=== PATIENT | male | born 1950 | race Caucasian/White ===

== ENCOUNTER 2017-10-01 01:38 | Emergency (ER) | payer BC, SELFPAY ==
[2017-10-01 01:39] VITALS: BP 167/115; PULSE 127; RESP 20; TEMP 37.1; O2SAT 98; BMI 34.4
[2017-10-01 02:18] LABS: Basophils # 0.1 K/mm3 (0-0.2); Basophils % 0.8 % (0.1-2.0); Eosinophils # 0.5 K/mm3 (0.0-0.4); Eosinophils % 5.5 % (0.1-12.0); Hematocrit 43.7 % (42.0-52.0); Hemoglobin 14.3 g/dL (14.1-18.0); Lymphocytes # 3.2 K/mm3 (0.7-4.5); Lymphocytes % 33.2 K/mm3 (10-50); Mean Corpuscular HGB Conc 32.8 g/dL (31.8-35.4); Mean Corpuscular Hemoglobin 29.9 pg (27.0-31.2); Mean Corpuscular Volume 91.1 fl (80-94); Mean Platelet Volume 7.7 fl (7.4-10.4); Monocytes # 0.6 K/mm3 (0.1-1.0); Monocytes % 5.8 % (1.7-9.3); Neutrophils # 5.3 K/mm3 (1.8-7.8); Neutrophils % 54.8 % (37.0-80.0); Platelet Count 370 K/mm3 (142-424); Red Cell Distribution Width 12.9 % (11.5-17.5); White Blood Count 9.6 K/mm3 (4.8-10.8)
[2017-10-01 02:34] LABS: Alanine Aminotransferase 40 U/L (12-78); Albumin Level 3.8 gm/dL (3.4-5.0); Albumin/Globulin Ratio 1.1 (1.1-1.8); Alkaline Phosphatase 59 U/L (46-116); Anion Gap 11.5 mEq/L (5-15); Aspartate Amino Transferase 11 U/L (15-37); Bilirubin,Total 0.1 mg/dL (0.2-1.0); Blood Urea Nitrogen 17 mg/dL (7-18); Calcium 8.4 mg/dL (8.5-10.1); Carbon Dioxide 25 mmol/L (21.0-32.0); Chloride 104 mmol/L (98-107); Creatinine Clearance Estimated 99 mL/min (0-300); Creatinine,Serum 1.15 mg/dL (0.70-1.30); Estimated Glomerular Filt Rate 64 ml/min (>60); GFR (African American) 77 ML/MIN (>60); Globulin 3.6 gm/dl (1.3-3.2); Glucose 147 mg/dL (74-106); Potassium 3.5 mmoL/L (3.5-5.1); Sodium 137 mmol/L (136-145); Total Protein,Serum 7.4 gm/dL (6.4-8.2)
[2017-10-01 02:38] VITALS: BP 136/70; PULSE 92; RESP 16; O2SAT 100
--- NOTE | 2017-10-01 02:50 | HMH.EDEPIS ---
ED Disposition Clinical Impression: Epistaxis Disposition: Home, Self-Care Condition on Discharge: Good Instructions: DI for Nosebleed Additional Instructions: keep appt today - Critical Care Critical Care Time: No Attestation: On 10/01/17, the high probability of a clinically significant, sudden or life threatening deterioration of the following system(s) required my full and direct attention, intervention and personal management. The time I documented below is in addition to time spent performing reported procedures but includes the following listed in this critical care notation. Medical Decision Making - Medical Records Medical records reviewed: Yes: I reviewed the patient's medical records. Vital Signs: 10/01/17 01:39 10/01/17 02:38 Temperature 98.7 F Temperature Source Oral Pulse Rate [Right Radial] 127 H 92 H Respiratory Rate 20 16 Blood Pressure [Right Arm] 167/115 136/70 Blood Pressure Mean [Right Arm] 132 92 Blood Pressure Source [Right Arm] Automatic Cuff Blood Pressure Position [Right Arm] Sitting 02 Sat by Pulse Oximetry 98 100 Oxygen Delivery Method Room Air - Lab Data Lab results reviewed: Yes: I reviewed the patient's lab results. Lab Results 10/01/17 02:00: WBC 9.6, RBC 4.80, Hgb 14.3, Hct 43.7, MCV 91.1, MCH 29.9, MCHC 32.8, RDW 12.9, Plt Count 370, MPV 7.7, Neut % (Auto) 54.8, Lymph % (Auto) 33.2, Montgomery % (Auto) 5.8, Eos % (Auto) 5.5, Baso % (Auto) 0.8, Neut # (Auto) 5.3, Lymph # (Auto) 3.2, Montgomery # (Auto) 0.6, Eos # (Auto) 0.5 H, Baso # (Auto) 0.1 10/01/17 02:00: Sodium 137, Potassium 3.5, Chloride 104, Carbon Dioxide 25, Anion Gap 11.5, BUN 17, Creatinine 1.15, Estimated Creat Clear 99, Estimated GFR 64, Est GFR ( Amer) 77, Glucose 147 H, Calcium 8.4 L, Total Bilirubin 0.1 L, AST 11 L, ALT 40, Alkaline Phosphatase 59, Total Protein 7.4, Albumin 3.8, Globulin 3.6 H, Albumin/Globulin Ratio 1.1 Result diagrams: 10/01/17 02:00 10/01/17 02:00 Orders (Tests/Meds): ED MEDICATIONS Discontinued Medications Generic Name Dose Route Start Last Admin Trade Name Ismael ARAGON Reason Stop Dose Admin Cocaine HCl 8 ml 10/01/17 02:13 10/01/17 02:34 Cocaine 4% Topical Soln 4ml Bottle TP 10/01/17 02:14 8 ml ONCE ONE Administration Meperidine HCl 25 mg 10/01/17 02:13 10/01/17 02:34 Meperidine 25mg/Ml 1ml Syringe IV 10/01/17 02:14 25 mg ONCE ONE Administration Promethazine HCl 12.5 mg 10/01/17 02:13 10/01/17 02:34 Phenergan 25mg/Ml 1ml Vial IV 10/01/17 02:14 12.5 mg ONCE ONE Administration Sodium Chloride 25 ml 10/01/17 02:13 10/01/17 02:34 Sod Chlor 0.9% 25ml Bag IV 10/01/17 02:14 25 ml ONCE ONE Administration - Onel Inquiry Pt receiving controlled substance: No Epistaxis HPI - General Chief complaint: Epistaxis Stated complaint: NOSEBLEED Time Seen by Provider: 10/01/17 02:50 Mode of Arrival: Ambulatory Source of Information: Patient, Spouse, Medical Record Limitations: No Limitations Description of Symptoms (Recalled from ER Triage Doc. by RN): PT WITH NOSEBLEED. PT STATES HE STARTED BLEEDING ON WENS AND IT LASTED APPROX 1.5 HOURS. PT HAS NOT HAD ANY BLEEDING UNTIL NOW. BLEEDING STARTED APPROX 30 MIN AGO. PT HAS AND APPOINTMENT WITH EAR/NOSE/THROAT TODAY AT 1400. - History of Present Illness HPI Narrative: rt sided spont nosebleed - has appt today with nosebleed treated at [facility] last week complaint: epistaxis Location: right nostril Onset (ago): hour(s) Duration: constant Context: history of previous, aspirin use Treatment prior to arrival: nose pinching, head tilted back, stuffed nose with tissue - Related Data Home Medications Medication Instructions Recorded Confirmed Amlodipine Besylate/Benazepril 7.5 mg PO DAILY 10/01/17 10/01/17 [Amlodipine-Benazepril 5-20 mg] Aspirin [Aspir 81] 81 mg PO DAILY 10/01/17 10/01/17 Atorvastatin Calcium [Atorvastatin 20 mg PO DAILY 10/01/17 10/01/17
--- NOTE | 2017-10-01 02:53 | ED_ITS ---
ED Disposition Clinical Impression: Epistaxis Disposition: Home, Self-Care Condition on Discharge: Good Instructions: DI for Nosebleed Additional Instructions: keep appt today - Critical Care Critical Care Time: No Attestation: On 10/01/17, the high probability of a clinically significant, sudden or life threatening deterioration of the following system(s) required my full and direct attention, intervention and personal management. The time I documented below is in addition to time spent performing reported procedures but includes the following listed in this critical care notation. Medical Decision Making - Medical Records Medical records reviewed: Yes: I reviewed the patient's medical records. Vital Signs: 10/01/17 01:39 10/01/17 02:38 Temperature 98.7 F Temperature Source Oral Pulse Rate [Right Radial] 127 H 92 H Respiratory Rate 20 16 Blood Pressure [Right Arm] 167/115 136/70 Blood Pressure Mean [Right Arm] 132 92 Blood Pressure Source [Right Arm] Automatic Cuff Blood Pressure Position [Right Arm] Sitting 02 Sat by Pulse Oximetry 98 100 Oxygen Delivery Method Room Air - Lab Data Lab results reviewed: Yes: I reviewed the patient's lab results. Lab Results 10/01/17 02:00: WBC 9.6, RBC 4.80, Hgb 14.3, Hct 43.7, MCV 91.1, MCH 29.9, MCHC 32.8, RDW 12.9, Plt Count 370, MPV 7.7, Neut % (Auto) 54.8, Lymph % (Auto) 33.2 , Ogle % (Auto) 5.8, Eos % (Auto) 5.5, Baso % (Auto) 0.8, Neut # (Auto) 5.3, Lymph # (Auto) 3.2, Ogle # (Auto) 0.6, Eos # (Auto) 0.5 H, Baso # (Auto) 0.1 10/01/17 02:00: Sodium 137, Potassium 3.5, Chloride 104, Carbon Dioxide 25, Anion Gap 11.5, BUN 17, Creatinine 1.15, Estimated Creat Clear 99, Estimated GFR 64, Est GFR ( Amer) 77, Glucose 147 H, Calcium 8.4 L, Total Bilirubin 0.1 L, AST 11 L, ALT 40, Alkaline Phosphatase 59, Total Protein 7.4, Albumin 3.8, Globulin 3.6 H, Albumin/Globulin Ratio 1.1 Result diagrams: 10/01/17 02:00 10/01/17 02:00 Orders (Tests/Meds): ED MEDICATIONS Discontinued Medications Generic Name Dose Route Start Last Admin Trade Name Ismael PRDeacon Reason Stop Dose Admin Cocaine HCl 8 ml 10/01/17 02:13 10/01/17 02:34 Cocaine 4% Topical Soln 4ml Bottle TP 10/01/17 02:14 8 ml ONCE ONE Administration Meperidine HCl 25 mg 10/01/17 02:13 10/01/17 02:34 Meperidine 25mg/Ml 1ml Syringe IV 10/01/17 02:14 25 mg ONCE ONE Administration Promethazine HCl 12.5 mg 10/01/17 02:13 10/01/17 02:34 Phenergan 25mg/Ml 1ml Vial IV 10/01/17 02:14 12.5 mg ONCE ONE Administration Sodium Chloride 25 ml 10/01/17 02:13 10/01/17 02:34 Sod Chlor 0.9% 25ml Bag IV 10/01/17 02:14 25 ml ONCE ONE Administration - Onel Inquiry Pt receiving controlled substance: No Epistaxis HPI - General Chief complaint: Epistaxis Stated complaint: NOSEBLEED Time Seen by Provider: 10/01/17 02:50 Mode of Arrival: Ambulatory Source of Information: Patient, Spouse, Medical Record Limitations: No Limitations Description of Symptoms (Recalled from ER Triage Doc. by RN): PT WITH NOSEBLEED. PT STATES HE STARTED BLEEDING ON WENS AND IT LASTED APPROX 1.5 HOURS. PT HAS NOT HAD ANY BLEEDING UNTIL NOW. BLEEDING STARTED APPROX 30 MIN AGO. PT HAS AND APPOINTMENT WITH EAR/NOSE/THROAT TODAY AT 1400. - History of Present Illness
[2017-10-01 02:59] VITALS: BP 128/79; PULSE 99; RESP 16; TEMP 37.1; O2SAT 97
== END 2017-10-01 03:01 | disposition home or self-care (01) ==
PROVIDERS: Emergency Provider Emergency Medicine; Family Provider Family Medicine
DX: R04.0 Epistaxis (principal); E11.65 Type 2 diabetes mellitus with hyperglycemia; Z79.82 Long term (current) use of aspirin; Z87.891 Personal history of nicotine dependence; I10 Essential (primary) hypertension
CPT/HCPCS: 80053; 85025; 96365; 96374; 96375; 99283

== ENCOUNTER 2017-10-10 15:15 | Emergency (ER) | payer BC, SELFPAY ==
[2017-10-10 15:28] VITALS: BP 146/88; PULSE 91; RESP 20; TEMP 36.8; O2SAT 97; BMI 34.4
--- NOTE | 2017-10-10 15:53 | HMH.EDUTC ---
[facility] [place]ression: Acute bronchitis Qualifiers: Bronchitis organism: other organism Qualified Code(s): J20.8 - Acute bronchitis due to other specified organisms Disposition: Home, Self-Care Condition on Discharge: Good Instructions: DI for Acute Bronchitis Additional Instructions: * Continue current antibiotic. * Monitor Temp. Follow up if fever develops * humidifier/vaporizer/hot steamy shower * Inhaler every 4-6 hours as needed like we discussed. If unsure how to use it, ask pharmacist to demonstrate how. Should help open airways and improve cough, wheezing, shortness of breath. * Mucinex during the day for your cough and cough suppressant only at night. Be sure to drink lots of water. Insurance may not cover a prescription of mucinex. Might be cheaper to get 400mg tablets and take 2 tablets morning, midday and evening all with lots of water. * Start steroid today. Helps with inflammation therefore, cough and wheezing. Follow directions on package. Rvwd side effects. Pt reports they have taken them before. Prescriptions: Albuterol Sulfate [Albuterol HFA Inhaler] 1 - 2 puffs IH Q4-6H PRN #1 inh PRN Reason: Shortness Of Breath Or Wheezing predniSONE [Deltasone 10mg tablet] 10 mg PO BID #10 tab Referrals: Karmen Mehta MD [Family Provider] - (Immediately for new or worsening symptoms but also if not improvement over the weekend. 911/ER for ANY difficulty breathing.) Time of Disposition: 17:41 Medical Decision Making - Onel Inquiry Pt receiving controlled substance: No Vital Signs: 10/10/17 15:28 10/10/17 17:38 Temperature 98.3 F 98.5 F Temperature Source Temporal Artery Scan Pulse Rate 86 Pulse Rate [Right Radial] 91 H Respiratory Rate 20 18 Blood Pressure 139/85 Blood Pressure [Right Arm] 146/88 Blood Pressure Mean [Right Arm] 107 02 Sat by Pulse Oximetry 97 Oxygen Delivery Method Room Air Room Air - Radiology Data #1 Image(s): Chest Image Reviewed: Yes I reviewed the patient's radiology image w/the ED provider Preliminary Findings: Normal/NAD 1654: Walked to ER to discuss with Dr. Russell. Not available. Will call once read. 1730: negative pr Dr. russell. Rvwd w/ [place] [facility] [place] - General Stated complaint: nose bleeds Time Seen by Provider: 10/10/17 15:53 Mode of Arrival: Family Vehicle Source of Information: Patient Limitations: No Limitations Description of Symptoms (Recalled from Triage Doc. by RN): PT C/O COUGH. HEENT Symptoms (Recalled from RN notes): No Resp Symptoms (Recalled from RN notes): Yes (COUGH) Skin Symptoms (Recalled from RN notes): No MS Symptoms (Recalled from RN notes): No Functional Status (Recalled from RN notes): NA - History of Present Illness Provider Complaint: c/o occasionally productive cough. scant dark sputum. Worries associated w/ recent nosebleeds that have required two ER visits over the last 2 weeks and an ENT referral. Since seeing ENT one week ago, no nose bleeds. Reports at times, was swallowing blood and worries he aspirated. Cough after first nose bleed 2 weeks ago that resolved within one day. Cough returned last Friday (nearly a week ago). Went to [facility] in [place] on Friday. Dx bronchitis. Rx doxycycline. Sputum looks better and cough more dry now. Worse at night. Describes feeling loss of air at times throughout the night and a tickle in my throat . No known sick contacts. No fever, aches, chills, wheezing. Quit smoking 5 years ago. - Related Data Home Medications Medication Instructions Recorded Confirmed Amlodipine Besylate/Benazepril 7.5 mg PO DAILY 10/01/17 10/10/17 [Amlodipine-Benazepril 5-20 mg] Aspirin [Aspir 81] 81 mg PO DAILY 10/01/17 10/10/17 Atorvastatin Calcium [Atorvastatin 20 mg PO DAILY 10/01/17 10/10/17 20mg Tab] Doxycycline Hyclate [Vibra-Tab 100 mg PO BID 10/10/17 10/10/17 100mg tablet] Previous Rx's Medication Instructions Recorded Albuterol Sulfate [Al
--- NOTE | 2017-10-10 16:03 | ED_ITS ---
[facility] [place] Impression: Acute bronchitis Qualifiers: Bronchitis organism: other organism Qualified Code(s): J20.8 - Acute bronchitis due to other specified organisms Disposition: Home, Self-Care Condition on Discharge: Good Instructions: DI for Acute Bronchitis Additional Instructions: * Continue current antibiotic. * Monitor Temp. Follow up if fever develops * humidifier/vaporizer/hot steamy shower * Inhaler every 4-6 hours as needed like we discussed. If unsure how to use it, ask pharmacist to demonstrate how. Should help open airways and improve cough, wheezing, shortness of breath. * Mucinex during the day for your cough and cough suppressant only at night. Be sure to drink lots of water. Insurance may not cover a prescription of mucinex. Might be cheaper to get 400mg tablets and take 2 tablets morning, midday and evening all with lots of water. * Start steroid today. Helps with inflammation therefore, cough and wheezing. Follow directions on package. Rvwd side effects. Pt reports they have taken them before. Prescriptions: Albuterol Sulfate [Albuterol HFA Inhaler] 1 - 2 puffs IH Q4-6H PRN #1 inh PRN Reason: Shortness Of Breath Or Wheezing predniSONE [Deltasone 10mg tablet] 10 mg PO BID #10 tab Referrals: Karmen Mehta MD [Family Provider] - (Immediately for new or worsening symptoms but also if not improvement over the weekend. 911/ER for ANY difficulty breathing.) Time of Disposition: 17:41 Medical Decision Making - Onel Inquiry Pt receiving controlled substance: No Vital Signs: 10/10/17 15:28 10/10/17 17:38 Temperature 98.3 F 98.5 F Temperature Source Temporal Artery Scan Pulse Rate 86 Pulse Rate [Right Radial] 91 H Respiratory Rate 20 18 Blood Pressure 139/85 Blood Pressure [Right Arm] 146/88 Blood Pressure Mean [Right Arm] 107 02 Sat by Pulse Oximetry 97 Oxygen Delivery Method Room Air Room Air - Radiology Data #1 Image(s): Chest Image Reviewed: Yes I reviewed the patient's radiology image w/the ED provider Preliminary Findings: Normal/NAD 1654: Walked to ER to discuss with Dr. Russell. Not available. Will call once read. 1730: negative pr Dr. russell. Rvwd w/ pt [facility] [place] - General Stated complaint: nose bleeds Time Seen by Provider: 10/10/17 15:53 Mode of Arrival: Family Vehicle Source of Information: Patient Limitations: No Limitations Description of Symptoms (Recalled from Triage Doc. by RN): PT C/O COUGH. HEENT Symptoms (Recalled from RN notes): No Resp Symptoms (Recalled from RN notes): Yes (COUGH) Skin Symptoms (Recalled from RN notes): No MS Symptoms (Recalled from RN notes): No Functional Status (Recalled from RN notes): NA - History of Present Illness Provider Complaint: c/o occasionally productive cough. scant dark sputum. Worries associated w/ recent nosebleeds that have required two ER visits over the last 2 weeks and an ENT referral. Since seeing ENT one week ago, no nose bleeds. Reports at times, was swallowing blood and worries he aspirated. Cough after first nose bleed 2 weeks ago that resolved within one day. Cough returned last Friday (nearly a week ago). Went to [facility] in [place] on Friday. Dx bronchitis. Rx doxycycline. Sputum looks better and cough more dry now. Worse at night. Describes feeling loss of air at times throughout the night and a tickle in my throat . No known sick contacts. No fever, aches, chills, wheezing. Quit smoking 5 years ago. - Related Data
--- NOTE | 2017-10-10 16:03 | XR_ITS ---
XR chest 2V COMPARISON: PA and lateral chest 07/29/2016 HISTORY: Persistent cough TECHNIQUE: PA and lateral chest FINDINGS: The lung suárez are fairly well-expanded. Again noted is elevation left hemidiaphragm which was noted previously and may be due to paresis of the left phrenic nerve. There is mildly dilated splenic flexure the colon just beneath the elevated left hemidiaphragm. Cardiac size is normal and the vascularity is normal. There are calcified left hilar nodes. IMPRESSION: Chronically elevated left hemidiaphragm, no acute chest pathology noted
[2017-10-10 17:38] VITALS: BP 139/85; PULSE 86; RESP 18; TEMP 36.9; O2SAT 98
== END 2017-10-10 17:45 | disposition home or self-care (01) ==
PROVIDERS: Emergency Provider Nurse Practitioner Family; Family Provider Family Medicine
DX: J20.8 Acute bronchitis due to other specified organisms (principal)
CPT/HCPCS: 71046; 99201

== ENCOUNTER → 2018-02-16 14:45 | Outpatient (CLI) | payer BC, SELFPAY ==
--- NOTE | 2018-02-16 14:48 | CT_ITS ---
CT abdomen pelvis wo con INDICATION: ITS.REASON: HEMATURIA ORDERING PHYSICIAN: Carson Cali MD PATIENT AGE: 67 years COMPARISON: No previous PROCEDURE: Oral Contrast: None IV Contrast: None TECHNIQUE: Axial images are obtained without contrast. Sagittal and coronal reformatted images are reviewed as well. All CT scans at the facility use one or more dose reduction, viz: automated exposure control; ma/kV adjustment per patient size (including targeted exams where dose is matched to indication; i.e. head); or iterative reconstruction technique. FINDINGS: Lung bases clear. Calcified granuloma right base. Generous Elevation left hemidiaphragm was noted on 2017 study . Abdomen/pelvis. Lack of oral and IV contrast will decrease sensitivity. Liver. No focal lesions. Unremarkable.. Gallbladder contracted with no gallstones. No biliary ductal dilatation. Spleen unremarkable. Adrenals satisfactory. Pancreas unremarkable. LEFT KIDNEY.*Large 8 cm diameter x 9 cm height mass left kidney. Inhomogeneous solid with stippled calcifications throughout.. This Renal neoplasm is highly suspect for renal cell carcinoma/hypernephroma, until proven otherwise. . It arises from the posterior aspect left kidney inferior to this midportion. It displaces normal kidney about it. I do not see any discrete retroperitoneal adenopathy on this noncontrast study. No definitive adenopathy medial to the left kidney I would note that just medial medial to the mass there is some densities which I'm attributing to tortuous vessels/venous structures.-Specifically small density 18 x 8 mm area just along the medial aspect of the mass which favors a tortuous vein most likely. . RIGHT KIDNEY appears normal Diffusecalcification of nondilated infrarenal aorta GI tract. Prominent stool at the cecum and right colon moderate stool and gas elsewhere throughout the large bowel. Scattered diverticulosis throughout the left colon and sigmoid colon but no diverticulitis. The appendix is normal. Small bowel appears normal. No mesenteric nor pelvic nor retroperitoneal adenopathy of significance. Osseous structures. No focal osseous lesions evident.. Mild dextroscoliosis upper lumbar region. Degenerative changes throughout spine most notable are the prominent facet hypertrophic changes towards lower L-spine. IMPRESSION ======== 1. Large left renal neoplasm., Highly suspect for Renal cell carcinoma. It measures 8 cm X up to 9 cm, bulging from the posterior aspect left kidney. 2. No discrete retroperitoneal or periaortic adenopathy of significant concern at this point. 3. Right kidney unremarkable. 4. No evidence of metastatic disease on this scan. 5. Colonic diverticulosis. Most notable at left colon. No diverticulitis
== END ==
PROVIDERS: Family Provider Family Medicine; PCP Family Medicine; Visit Provider Urology
DX: R31.9 Hematuria, unspecified (principal)
CPT/HCPCS: 74176

== ENCOUNTER → 2018-02-19 14:09 | Outpatient (CLI) | payer BC, SELFPAY ==
[2018-02-19 14:43] LABS: Basophils # 0.1 K/mm3 (0-0.2); Basophils % 0.7 % (0.1-2.0); Eosinophils # 0.4 K/mm3 (0.0-0.4); Eosinophils % 3.6 % (0.1-12.0); Hemoglobin 14.9 g/dL (14.1-18.0); Lymphocytes # 2.5 K/mm3 (0.7-4.5); Lymphocytes % 25.6 K/mm3 (10-50); Mean Corpuscular HGB Conc 33.2 g/dL (31.8-35.4); Mean Corpuscular Hemoglobin 29.2 pg (27.0-31.2); Mean Platelet Volume 7.5 fl (7.4-10.4); Monocytes # 0.5 K/mm3 (0.1-1.0); Monocytes % 5.2 % (1.7-9.3); Neutrophils # 6.3 K/mm3 (1.8-7.8); Platelet Count 327 K/mm3 (142-424); Red Blood Count 5.11 M/mm3 (4.60-6.20); Red Cell Distribution Width 13.1 % (11.5-17.5); White Blood Count 9.8 K/mm3 (4.8-10.8)
[2018-02-19 15:45] LABS: Alanine Aminotransferase 35 U/L (12-78); Albumin Level 3.9 gm/dL (3.4-5.0); Albumin/Globulin Ratio 1.1 (1.1-1.8); Alkaline Phosphatase 62 U/L (46-116); Anion Gap 12.1 mEq/L (5-15); Aspartate Amino Transferase 10 U/L (15-37); Bilirubin,Total 0.2 mg/dL (0.2-1.0); Blood Urea Nitrogen 20 mg/dL (7-18); Calcium 9.1 mg/dL (8.5-10.1); Carbon Dioxide 27 mmol/L (21.0-32.0); Chloride 106 mmol/L (98-107); Creatinine,Serum 0.99 mg/dL (0.70-1.30); Estimated Glomerular Filt Rate 76 ml/min (>60); GFR (African American) 92 ML/MIN (>60); Globulin 3.4 gm/dl (1.3-3.2); Glucose 100 mg/dL (74-106); Potassium 4.1 mmoL/L (3.5-5.1); Sodium 141 mmol/L (136-145); Total Protein,Serum 7.3 gm/dL (6.4-8.2)
== END ==
PROVIDERS: Visit Provider Urology
DX: D49.512 Neoplasm of unspecified behavior of left kidney (principal)
CPT/HCPCS: 36415; 80053; 85025

== ENCOUNTER → 2018-02-26 08:17 | Outpatient (CLI) | payer BC, SELFPAY ==
--- NOTE | 2018-02-26 08:22 | CT_ITS ---
CT abdomen pelvis wo/w con CLINICAL INDICATION: Left renal mass, hematuria, bilateral left renal vein ITS.REASON: LT RENAL MASS ORDERING PHYSICIAN: Carson Cali MD PATIENT AGE: 67 years COMPARISON: None TECHNIQUE: Axial images obtained with sagittal and coronal reformats. All CT scans at the facility use one or more dose reduction, viz: automated exposure control, ma/kV adjustment per patient size (including targeted exams where dose is matched to indication, i.e. head), or iterative reconstruction technique. PROCEDURE: Oral Contrast: None IV Contrast: 75 mL's of Isovue-370. FINDINGS: Pre and post enhanced images are obtained. Post enhanced images are obtained at 30 seconds, 60 seconds, and 10 delayed. Liver, gallbladder, spleen, adrenal glands, pancreas, and right kidney have an unremarkable appearance. There is a heterogeneous round left renal mass measuring 8.5 cm transverse, 8.5 cm cephalad to caudad, an 8.2 cm AP. The mass is heterogeneous containing some coarse calcifications with some heterogeneous peripheral enhancement consistent with renal cell cancer. The mass involves the mid and lower pole of the left kidney and is probably well-circumscribed. The left renal vein is slightly enlarged but does NOT appear to contain tumor or thrombus. No evidence of extension to the abdominal wall. There is only minimal stranding of the perinephric renal fat on the left which is nonspecific. No para-aortic or retroperitoneal adenopathy. The inferior vena cava has an unremarkable appearance. No intestinal obstruction or free air. Unremarkable appendix. There is diverticulosis of the sigmoid colon with no evidence of diverticulitis. No acute bony anomalies. IMPRESSION: 1. 8.5 cm left renal mass consistent with renal carcinoma as described above. 2. No evidence of thrombosis or tumor invasion of the left renal vein. 3. No evidence of hepatic metastasis
--- NOTE | 2018-02-26 08:22 | CT_ITS ---
CT chest wo con HISTORY: Left renal mass, evaluate for metastasis ITS.REASON: LT RENAL MASS ORDERING PHYSICIAN: Carson Cali MD PATIENT AGE: 67 years COMPARISON: None Technique: Axial images obtained with sagittal and coronal reformats. All CT scans at the facility use one or more dose reduction, viz: automated exposure control, ma/kV adjustment per patient size (including targeted exams where dose is matched to indication, i.e. head), or iterative reconstruction technique. FINDINGS: No mediastinal or hilar mass or adenopathy. Normal heart size. No evidence of pericardial effusion. Scattered calcified nodes are present in the mediastinum and tarun. There are mild centrilobular emphysematous changes. Scattered calcified granulomas are present with scattered areas of fibrosis. No suspicious pulmonary nodules. Left hemidiaphragm elevated nonspecific. No central obstructing lesions.. There is mild bronchial thickening in the left lower lobe. No acute bony anomalies. IMPRESSION: 1. No convincing evidence of metastatic disease within the chest. 2. Emphysema/COPD with evidence of old granulomatous disease. 3. Elevated left hemidiaphragm.
== END ==
PROVIDERS: Family Provider Family Medicine; PCP Family Medicine; Visit Provider Urology
DX: N28.89 Other specified disorders of kidney and ureter (principal)
CPT/HCPCS: 71250; 74170; 74178; Q9967

== ENCOUNTER → 2018-03-31 09:30 | Outpatient (CLI) | payer BC, SELFPAY ==
--- NOTE | 2018-03-31 09:37 | XR_ITS ---
XR chest 2V HISTORY: ITS.REASON: CHEST CONGESTION ORDERING PHYSICIAN: Karmen Mehta MD PATIENT AGE: 67 years COMPARISON: 10/10/2017 FINDINGS: Unremarkable cardiovascular structures. Left hemidiaphragm remains elevated. There is blunting of the CP angles on both sides consistent with small bilateral pleural effusions. No lobar consolidation or collapse. No acute bony anomalies. IMPRESSION: Elevated left hemidiaphragm with small bilateral effusions
== END ==
PROVIDERS: PCP Family Medicine; Visit Provider Family Medicine
DX: R09.89 Other specified symptoms and signs involving the circulatory and respiratory systems (principal)
CPT/HCPCS: 71046

== ENCOUNTER → 2018-10-22 13:13 | Outpatient (CLI) | payer BC, SELFPAY ==
--- NOTE | 2018-10-22 13:22 | XR_ITS ---
XR chest 2V HISTORY: Former smoker, renal cell carcinoma follow-up ITS.REASON: History Renal Cell Carcinoma ORDERING PHYSICIAN: Carson Cali MD PATIENT AGE: 67 years COMPARISON: 03/31/2018 FINDINGS: The cardiomediastinal silhouette and pulmonary vascularity are within normal limits. Left hemidiaphragm is elevated as before posteriorly. The lungs are clear bilaterally. No acute bony findings. IMPRESSION: Elevated left hemidiaphragm. No change with no acute finding.
[2018-10-22 15:07] LABS: Alanine Aminotransferase 35 U/L (12-78); Albumin Level 3.9 gm/dL (3.4-5.0); Albumin/Globulin Ratio 1.1 (1.1-1.8); Alkaline Phosphatase 57 U/L (46-116); Anion Gap 16.3 mEq/L (5-15); Aspartate Amino Transferase 19 U/L (15-37); Bilirubin,Total 0.3 mg/dL (0.2-1.0); Blood Urea Nitrogen 27 mg/dL (7-18); Calcium 8.9 mg/dL (8.5-10.1); Carbon Dioxide 24 mmol/L (21.0-32.0); Chloride 103 mmol/L (98-107); Creatinine,Serum 1.19 mg/dL (0.70-1.30); Estimated Glomerular Filt Rate 61 ml/min (>60); GFR (African American) 74 ML/MIN (>60); Globulin 3.5 gm/dl (1.3-3.2); Glucose 91 mg/dL (74-106); Potassium 4.3 mmoL/L (3.5-5.1); Prostate Specific Ag Screen 0.4 ng/mL (0.0-4.0); Sodium 139 mmol/L (136-145); Total Protein,Serum 7.4 gm/dL (6.4-8.2)
== END ==
PROVIDERS: Visit Provider Urology
DX: Z80.51 Family history of malignant neoplasm of kidney (principal); N39.9 Disorder of urinary system, unspecified
CPT/HCPCS: 36415; 71046; 80053; G0103

== ENCOUNTER → 2019-04-22 13:27 | Outpatient (CLI) | payer BC, SELFPAY ==
--- NOTE | 2019-04-22 13:37 | XR_ITS ---
PROCEDURE: XR CHEST 2V CLINICAL HISTORY: History of Renal Cell Carcinoma Follow-up renal cell carcinoma, previous smoker COMPARISON: CXR2V XR chest 2V from 10/10/[address] chest wo con from 02/26/2018 CXR2V XR chest 2V from 03/31/2018 CXR2V XR chest 2V from 10/22/2018 FINDINGS: The cardiomediastinal silhouette and pulmonary vascularity are within normal limits. COPD. Elevated left hemidiaphragm. Pericardial fat pad right cardiophrenic angle. No lobar consolidation or collapse. No acute bony findings. IMPRESSION: No change with no acute finding Dictated by: Gagandeep Boyd MD 04/22/2019 17:39 Electronically signed by Gagandeep Boyd MD in [place] 04/22/2019 17:39
[2019-04-22 13:53] LABS: Basophils # 0.1 K/mm3 (0-0.2); Basophils % 0.9 % (0.1-2.0); Eosinophils # 0.4 K/mm3 (0.0-0.4); Eosinophils % 4.4 % (0.1-12.0); Hematocrit 42.8 % (42.0-52.0); Hemoglobin 13.6 g/dL (14.1-18.0); Lymphocytes # 2.3 K/mm3 (0.7-4.5); Lymphocytes % 26.8 % (10-50); Mean Corpuscular HGB Conc 31.6 g/dL (31.8-35.4); Mean Corpuscular Hemoglobin 28.7 pg (27.0-31.2); Mean Corpuscular Volume 90.8 fl (80-94); Mean Platelet Volume 7.7 fl (7.4-10.4); Monocytes # 0.4 K/mm3 (0.1-1.0); Monocytes % 5.1 % (1.7-9.3); Neutrophils # 5.3 K/mm3 (1.8-7.8); Neutrophils % 62.8 % (37.0-80.0); Platelet Count 319 K/mm3 (142-424); Red Blood Count 4.71 M/mm3 (4.60-6.20); Red Cell Distribution Width 13.7 % (11.5-17.5); White Blood Count 8.4 K/mm3 (4.8-10.8)
[2019-04-22 15:03] LABS: Alanine Aminotransferase 33 U/L (12-78); Albumin/Globulin Ratio 1.2 (1.1-1.8); Alkaline Phosphatase 62 U/L (46-116); Anion Gap 14.1 mEq/L (5-15); Aspartate Amino Transferase 13 U/L (15-37); Bilirubin,Total 0.3 mg/dL (0.2-1.0); Blood Urea Nitrogen 26 mg/dL (7-18); Calcium 8.8 mg/dL (8.5-10.1); Carbon Dioxide 25 mmol/L (21.0-32.0); Chloride 101 mmol/L (98-107); Creatinine,Serum 1.17 mg/dL (0.70-1.30); Estimated Glomerular Filt Rate 62 ml/min (>60); GFR (African American) 75 ML/MIN (>60); Globulin 3.4 gm/dl (1.3-3.2); Glucose 87 mg/dL (74-106); Potassium 4.1 mmoL/L (3.5-5.1); Sodium 136 mmol/L (136-145); Total Protein,Serum 7.4 gm/dL (6.4-8.2)
== END ==
PROVIDERS: Visit Provider Urology
DX: C64.9 Malignant neoplasm of unspecified kidney, except renal pelvis (principal)
CPT/HCPCS: 36415; 71046; 80053; 85025

== ENCOUNTER → 2020-04-27 13:54 | Outpatient (CLI) | payer MEDICARE, SELFPAY ==
--- NOTE | 2020-04-27 14:02 | XR_ITS ---
PROCEDURE: XR CHEST 2V Referring Doctor: Carson Cali Patient Age:69Y CLINICAL HISTORY: HISTORY OF RENAL CELL CANCER two years ago. Follow-up. For more smoker. COMPARISON: CT CHESTWO CT chest wo con from 02/26/2018 CR CXR2V XR chest 2V from 03/31/2018 DX CXR2V XR chest 2V from 10/22/2018 CR XR CHEST 2V from 04/22/2019 FINDINGS: PA and lateral chest performed today. Prominent elevation of left hemidiaphragm is again noted similar to previous CXR studies.. Nothing definitely acute/no significant change since previous CXR study. Lungs remain clear with no masses or lesions evident. No active disease. The heart is normal in size with normal pulmonary vascularity. Corrina and mediastinal structures unchanged. Small calcified nodes reflect old granulomatous disease and corrina and mediastinal regions. Stable. Chest wall in T-spine appear stable and unchanged as well IMPRESSION: Stable chest.. No active disease No new findings compared to 2017 and 19 studies. Dictated by: Kalyan Salgado MD 04/27/2020 14:37 Kalyan Salgado MD in [place] 04/27/2020 14:37
[2020-04-27 15:32] LABS: Anion Gap 10.6 mEq/L (5-15); Blood Urea Nitrogen 26 mg/dl (9-20); Carbon Dioxide 29 mmol/L (22.0-30.0); Chloride 104 mmol/L (98-107); Potassium 4.6 mmoL/L (3.5-5.1); Sodium 139 mmol/L (136-145)
[2020-04-27 15:33] LABS: Alanine Aminotransferase 29 U/L (12-78); Albumin Level 4.6 g/dl (3.5-5.0); Albumin/Globulin Ratio 1.5 (1.1-1.8); Alkaline Phosphatase 63 U/L (38-126); Aspartate Amino Transferase 24 U/L (17-59); Bilirubin,Total 0.3 mg/dl (0.2-1.3); Calcium 9.4 mg/dl (8.4-10.2); Estimated Glomerular Filt Rate 50 ml/min (>60); GFR (African American) 61 ML/MIN (>60); Globulin 3.1 g/dL (1.3-3.2); Glucose 81 mg/dl (74-100); Total Protein,Serum 7.7 g/dl (6.3-8.2)
[2020-04-27 16:04] LABS: Prostate Specific Ag Screen 0.3 ng/ml (0.0-4.0)
== END ==
PROVIDERS: Visit Provider Urology
DX: Z85.528 Personal history of other malignant neoplasm of kidney (principal); Z12.5 Encounter for screening for malignant neoplasm of prostate
CPT/HCPCS: 36415; 71046; 80053; G0103

== ENCOUNTER → 2021-04-30 10:21 | Outpatient (CLI) | payer MEDICARE, SELFPAY ==
--- NOTE | 2021-04-30 10:31 | XR_ITS ---
PROCEDURE: XR CHEST 2V CLINICAL HISTORY: renal cell cancer COMPARISON: CT CHESTWO CT chest wo con from 02/26/2018 DX CXR2V XR chest 2V from 10/22/2018 CR XR CHEST 2V from 04/22/2019 CR XR CHEST 2V from 04/27/2020 FINDINGS: The report is delayed waiting on the repeat exam as the right CP angle is cut off on the image. As of this date the exam is not been performed. Unremarkable cardiovascular and mediastinal structures. Left hemidiaphragm is elevated as before. Lungs are clear of acute infiltrate. Small nodular opacities are present in the right lower lobe and may be due to granulomas unchanged. No acute bony findings. IMPRESSION: No acute finding with no significant change. Suggest repeat PA at no additional charge to cover the right CP angle Dictated by: Gagandeep Boyd MD 05/13/2021 10:23 Gagandeep Boyd MD in [place] 05/13/2021 10:23
[2021-04-30 11:38] LABS: Alanine Aminotransferase 40 U/L (12-78); Albumin/Globulin Ratio 1.3 (1.1-1.8); Alkaline Phosphatase 69 U/L (38-126); Aspartate Amino Transferase 26 U/L (17-59); Bilirubin,Total 0.2 mg/dl (0.2-1.3); Blood Urea Nitrogen 17 mg/dl (9-20); Calcium 9.2 mg/dl (8.4-10.2); Carbon Dioxide 32 mmol/L (22.0-30.0); Chloride 101 mmol/L (98-107); Estimated Glomerular Filt Rate 84 ml/min (>60); GFR (African American) 101 ML/MIN (>60); Globulin 3.2 g/dL (1.3-3.2); Glucose 130 mg/dl (74-100); Sodium 138 mmol/L (136-145); Total Protein,Serum 7.2 g/dl (6.3-8.2)
[2021-04-30 12:08] LABS: Prostate Specific Ag Screen 0.4 ng/ml (0.0-4.0)
== END ==
PROVIDERS: Visit Provider Urology
DX: C64.9 Malignant neoplasm of unspecified kidney, except renal pelvis (principal); Z12.5 Encounter for screening for malignant neoplasm of prostate
CPT/HCPCS: 36415; 71046; 80053; G0103

== ENCOUNTER → 2022-04-25 14:17 | Outpatient (CLI) | payer MEDICARE, OTHER, SELFPAY ==
--- NOTE | 2022-04-25 14:35 | XR_ITS ---
FINAL REPORT CLINICAL HISTORY: renal cell cancer COMPARISON: April 30, 2021 FINDINGS: CHEST TWO-VIEW Chronic elevation of the left hemidiaphragm. The lungs are clear. There is no evidence of effusion or other pleural disease. The mediastinum as a normal appearance. The cardiac silhouette is unremarkable. IMPRESSION: UNREMARKABLE CHEST EXAM. Reviewed, Interpreted and Dictated by Zia Richey MD Transcribed by Harry Cavazos Authenticated and [facility]
== END ==
PROVIDERS: PCP Family Medicine; Visit Provider Urology
DX: C64.9 Malignant neoplasm of unspecified kidney, except renal pelvis (principal)
CPT/HCPCS: 71046

== ENCOUNTER → 2022-05-02 08:36 | Outpatient (CLI) | payer MEDICARE, SELFPAY ==
[2022-05-02 09:53] LABS: Chloride 101 mmol/L (98-107); Potassium 5.4 mmoL/L (3.5-5.1); Sodium 139 mmol/L (136-145)
[2022-05-02 09:55] LABS: Blood Urea Nitrogen 25 mg/dl (9-20); Estimated Glomerular Filt Rate 60 ml/min (>60); GFR (African American) 72 ML/MIN (>60)
[2022-05-02 09:56] LABS: Alanine Aminotransferase 21 U/L (12-78); Albumin Level 4.5 g/dl (3.5-5.0); Albumin/Globulin Ratio 1.7 (1.1-1.8); Alkaline Phosphatase 72 U/L (38-126); Anion Gap 14.4 mEq/L (5-15); Aspartate Amino Transferase 24 U/L (17-59); Bilirubin,Total 0.3 mg/dl (0.2-1.3); Carbon Dioxide 29 mmol/L (22.0-30.0); Globulin 2.7 g/dL (1.3-3.2); Total Protein,Serum 7.2 g/dl (6.3-8.2)
[2022-05-02 09:57] LABS: Calcium 8.8 mg/dl (8.4-10.2); Glucose 119 mg/dl (74-100)
[2022-05-02 12:03] LABS: Prostate Specific Ag Screen 0.4 ng/ml (0.0-4.0)
== END ==
PROVIDERS: PCP Family Medicine; Visit Provider Urology
DX: Z12.5 Encounter for screening for malignant neoplasm of prostate (principal); Z85.528 Personal history of other malignant neoplasm of kidney
CPT/HCPCS: 36415; 80053; G0103

== ENCOUNTER 2023-05-16 12:20 | Emergency (ER) | payer MEDICARE, OTHER, SELFPAY ==
[2023-05-16 12:21] VITALS: BP 170/100; PULSE 78; RESP 18; TEMP 36.8; O2SAT 98; BMI 35.9
--- NOTE | 2023-05-16 12:25 | ECG_ITS ---
APPROVED REPORT Exam: Resting ECG HR:84 bpm ECG Measurements Heart Rate 84 AXES AL 150 P 68 QRSd 76 QRS 63 QT 357 T 85 QTc 398 Conclusion SINUS RHYTHM NORMAL ECG UNCONFIRMED REPORT Electronically signed by : Leif Dumont MD 05/17/2023 10:39:10
--- NOTE | 2023-05-16 12:28 | PC.NURSE ---
Dr. Allen at [facility] for pt eval
--- NOTE | 2023-05-16 12:29 | PC.NURSE ---
Dr. Allen at [facility] for pt eval
--- NOTE | 2023-05-16 12:41 | PC.NURSE ---
Manual BP: 170/108
--- NOTE | 2023-05-16 12:44 | HMH.EDGENADL ---
Discharge Plan Disposition Patient Disposition: Home, Self-Care Prescriptions Prescriptions: No Action coenzyme Q10 [CoQ-10] 100 mg capsule 100 mg PO DAILY aspirin 81 mg tablet,delayed release (DR/EC) 81 mg PO DAILY atorvastatin 20 MG tablet 20 mg PO DAILY amlodipine-benazepril 5 MG-20 capsule 7.5 mg PO DAILY Patient Comments: Referrals Follow up/Referrals: Karmen Mehta MD [Primary Care Provider] - See instructions Activity Restrictions/Add. Instructions Additional Instructions/Restrictions: As discussed you had asymptomatic hypertension today without any clinical evidence of endorgan damage therefore no emergency intervention or testing was indicated. The most up-to-date guidelines regarding blood pressure for someone your age without chronic kidney disease is a blood pressure goal of 150/90. Please keep a blood pressure log morning afternoon night if you are continuing to be concerned about this and follow-up with your primary care doctor to tailor your medications for this. Return with any headache changes in mental status chest pain shortness of breath decreased urine output etc. Clinical Impressions Clinical Impression: Asymptomatic hypertension Discharge ED Provider: Allison Allen General Adult HPI General Stated complaint: high blood pressure Time Seen by Provider: 05/16/23 12:23 History of Present Illness HPI narrative: Patient is a 72-year-old male presenting today with hypertension. He denies any headache changes in mental status chest pain shortness of breath decreased urine output or any other symptoms he is currently without any symptoms. He specifically denies any neurologic symptoms including changes in vision coordination lightheadedness numbness weakness tingling in arms or legs changes in vision etc. States that a few days ago he was at [facility] and decided to take his blood pressure and the device that was readily available and he was hypertensive. Took his blood pressure again today and it was elevated. He has not recently changed any medications. Related Data Home Medications Medication Instructions Recorded Confirmed amlodipine 5 mg-benazepril 20 mg 7.5 mg PO DAILY Hypertension 10/01/17 04/25/22 capsule atorvastatin 20 mg tablet 20 mg PO DAILY Cholesterol 10/01/17 04/25/22 coenzyme Q10 100 mg capsule 100 mg PO DAILY 02/12/18 04/25/22 (CoQ-10) aspirin 81 mg tablet,delayed 81 mg PO DAILY 04/25/22 04/25/22 release Allergies Allergy/AdvReac Type Severity Reaction Status Date / Time azithromycin [From ZITHROMAX] Allergy Unknown Verified 04/25/22 13:53 [facility] Disclaimer: The information contained in this section may have been updated after the patient was seen, as this information can be updated by other users. Medical History (Updated 05/16/23 @ 12:43 by Allison Allen MD) Nocturia Renal cell cancer Social History Smoking Status: Former smoker tobacco type: cigarettes packs per day: 1 alcohol intake: never substance use type: denies use current occupational status: retired Travel in the last 8 weeks: None household members: spouse housing: house ROS Obtained: Yes All systems reviewed & no additional complaints except as documented Physical Exam General General appearance: alert Respiratory Respiratory exam: Present normal lung sounds bilaterally; Absent respiratory distress Cardiovascular Cardiovascular exam: Present regular rate; Absent tachycardia Abdominal Exam Abdominal exam: Present soft Neurological Exam Neurological exam: Present alert, oriented X3, CN II-XII intact, normal gait and other (Normal posterior circulation exam); Absent motor sensory deficit Medical Decision Making Onel Inquiry Pt receiving controlled substance: No Medical Decision Narrative: Patient is a 72-year-old male presents today with asymptomatic hypertension without any clinical symptoms or signs of endorgan damage. In f
[2023-05-16 12:53] VITALS: BP 135/86; PULSE 88; RESP 17; TEMP 36.7
== END 2023-05-16 12:58 | disposition home or self-care (01) ==
PROVIDERS: Emergency Provider Student in an Organized Health Care Education/Training Program; PCP Family Medicine
DX: I10 Essential (primary) hypertension (principal); Z87.891 Personal history of nicotine dependence; Z85.528 Personal history of other malignant neoplasm of kidney
CPT/HCPCS: 93005; 99283

== ENCOUNTER 2024-06-19 07:59 | Emergency (ER) | payer MEDICARE, OTHER, SELFPAY ==
[2024-06-19 08:10] VITALS: BP 141/81; PULSE 109; RESP 21; TEMP 36.8; O2SAT 96; BMI 36.8
[2024-06-19 08:32] LABS: UTC Influenza A Antigen Negative (Negative); UTC Influenza B Antigen Negative (Negative)
--- NOTE | 2024-06-19 08:53 | EXP.UTC ---
Discharge Plan Disposition Patient Disposition: Home, Self-Care Condition: Good Prescriptions Prescriptions: New prednisone 20 mg tablet 20 mg PO BID Qty: 10 0RF albuterol sulfate 90 mcg/actuation HFA aerosol inhaler 1 inh inhalation QID PRN (Reason: shortness of breath or wheezing) Qty: 6.7 0RF No Action atorvastatin 20 mg tablet 20 mg PO DAILY amlodipine 2.5 mg tablet 2.5 mg PO DAILY amlodipine-benazepril 5-20 mg capsule 1 cap PO DAILY hydrochlorothiazide 12.5 mg tablet 12.5 mg PO DAILY Referrals Follow up/Referrals: Karmen Mehta MD [Primary Care Provider] - See instructions Activity Restrictions/Add. Instructions Additional Instructions/Restrictions: Tylenol and ibuprofen as needed for pain or fever Humidifier/vaporizer/hot steamy shower Follow-up with primary care this week. Follow-up immediately in the ER of the [facility] for new or worsening symptoms or no noticeable improvement over the next 48-72 hours. Stop smoking Inhaler every 4-6 hours as needed. Should help open airways improved cough, wheezing, shortness of breath Start steroids tomorrow. Helps with inflammation therefore coughing and wheezing. Follow directions on package. Clinical Impressions Clinical Impression: Acute bronchitis Instructions Patient Instructions: DI for Acute Bronchitis Print Language Print Language: Bel[place]an Discharge ED Provider: Anish ([facility])López [facility] [place] HPI General Stated complaint: cough, congestion,fever Mode of Arrival: Ambulatory Source of Information: Patient Limitations: No Limitations Time Seen by Provider: 06/19/24 08:32 Description of Symptoms (Recalled from Triage Doc. by RN): PATIENT C/O NONPRODUCTIVE COUGH, LOW-GRADE FEVER, AND SINUS CONGESTION X 4 DAYS HEENT Symptoms (Recalled from RN notes): Yes Resp Symptoms (Recalled from RN notes): Yes Skin Symptoms (Recalled from RN notes): No MS Symptoms (Recalled from RN notes): No Functional Status (Recalled from RN notes): WNL History of Present Illness Provider Complaint: 73-year-old male presents for complaints of nonproductive cough, low-grade fever, and sinus congestion for 4 days. Related Data Home Medications ?Medication ?Instructions ?Recorded ?Confirmed amlodipine 2.5 mg tablet 2.5 mg PO DAILY 06/19/24 06/19/24 amlodipine 5 mg-benazepril 20 mg 1 cap PO DAILY 06/19/24 06/19/24 capsule atorvastatin 20 mg tablet 20 mg PO DAILY 06/19/24 06/19/24 hydrochlorothiazide 12.5 mg tablet 12.5 mg PO DAILY 06/19/24 06/19/24 Previous Rx's ?Medication ?Instructions ?Recorded albuterol sulfate 90 mcg/actuation 1 inh inhalation QID PRN shortness 06/19/24 aerosol inhaler of breath or wheezing #6.7 grams prednisone 20 mg tablet 20 mg PO BID #10 tabs 06/19/24 Allergies Allergy/AdvReac Type Severity Reaction Status Date / Time azithromycin (From ZITHROMAX) Allergy Unknown Verified 04/25/22 13:53 Worker's Comp Is this a Worker's Comp case?: No [facility] Disclaimer: The information contained in this section may have been updated after the patient was seen, as this information can be updated by other users. Medical History , [employer]) Nocturia Renal cell cancer Social History , [employer]) Smoking Status: Former smoker tobacco type: cigarettes packs per day: 1 alcohol intake: never substance use type: denies use current occupational status: retired household members: spouse housing: house ROS Obtained: Yes Systems reviewed as appropriate & no additional complaints except as documented Constitutional Constitutional: Reports system reviewed and no additional complaints, except as documented, Reports as per HPI and Reports fever(s) ENT Ears, Nose, Mouth, and Throat: Reports system reviewed and no additional complaints, except as documented, Reports as per HPI, Reports nasal discharge, Reports post nasal drip, Reports sinus pain and Reports sore throat Respiratory Respiratory: Reports system reviewed and no additional complaints, except as documented, Reports as per HPI and Reports non-productive cough Physical Exam General General appearance: alert and in no apparent distress ENT ENT exam: Present mucous membranes moist and TM's normal bilaterally Respiratory Respiratory exam: Present wheezes Cardiovascular Cardiovascular exam: Present regular rate and normal rhythm Neurological Exam Neurological exam: Present alert and oriented X3 Skin Skin exam: Present warm and intact Medical Decision Making Medical Records Medical records reviewed: Yes I reviewed the patient's medical records. Screening: Per USPSTF and CDC recommendations, given the prevalence of disease in our region, it is our hospital?s policy to screen for HIV and viral Hepatitis for all patients aged 18 and over and those with ongoing risk factors. Onel Inquiry Pt receiving controlled substance: No Onel was queried for this patient: No Vital Signs: 06/19/24 08:10 Temperature 98.2 F Temperature Source Oral Pulse Rate [Left Brachial] 109 H Respiratory Rate 21 Blood Pressure [Left Arm] 141/81 H Blood Pressure Mean [Left Arm] 101 Blood Pressure Source [Left Arm] Automatic Cuff Blood Pressure Position [Left Arm] Sitting 02 Sat by Pulse Oximetry 96 Oxygen Delivery Method Room Air Lab Data Lab results reviewed: Yes I reviewed the patient's lab results. Lab Results 06/19/24 08:16: Influenza Type A Ag Negative, Influenza Type B Ag Negative
[2024-06-19 09:06] VITALS: BP 141/81; PULSE 109; RESP 21; TEMP 36.8; O2SAT 96
[2024-06-19 09:06] LABS: UTC Strep Screen (Rapid) Negative (Negative)
[2024-06-19] MEDS: DEXAMETHASONE 4MG/ML 1ML VIAL 4 MG IM (09:06)
== END 2024-06-19 09:12 | disposition home or self-care (01) ==
PROVIDERS: Emergency Provider Nurse Practitioner Family; PCP Family Medicine
DX: J20.9 Acute bronchitis, unspecified (principal)
CPT/HCPCS: 87635; 87804; 87880; 96372; 99213; G0381; J1100

== ENCOUNTER 2024-08-05 08:20 | Outpatient (CLI) | payer MEDICARE, OTHER, SELFPAY ==
[2024-08-05 08:25] LABS: MANUAL DIFFERENTIAL MANUAL DIFFERENTIAL (MANUAL DIFF)
[2024-08-05 09:13] LABS: Albumin Level 4.5 g/dl (3.5-5.0); Chloride 101 mmol/L (98-107); Potassium 4.6 mmoL/L (3.5-5.1); Sodium 137 mmol/L (136-145)
[2024-08-05 09:16] LABS: Alanine Aminotransferase 35 U/L (12-78); Albumin/Globulin Ratio 1.7 (1.1-1.8); Alkaline Phosphatase 63 U/L (38-126); Anion Gap 15.6 mEq/L (5-15); Aspartate Amino Transferase 25 U/L (17-59); Bilirubin,Total 0.5 mg/dl (0.2-1.3); Blood Urea Nitrogen 22 mg/dl (9-20); Calcium 9.2 mg/dl (8.4-10.2); Carbon Dioxide 25 mmol/L (22.0-30.0); Estimated Glomerular Filt Rate 73 ml/min (>60); GFR (African American) 89 ML/MIN (>60); Globulin 2.6 g/dL (1.3-3.2); Glucose 138 mg/dl (74-100); Total Protein,Serum 7.1 g/dl (6.3-8.2)
[2024-08-05 10:29] LABS: Eosinophils % 4 % (0-3); Lymphocytes % 24 % (10-50); Monocytes % 4 % (2-9); Neutrophils % 68 % (42-76); Total Cells Counted 100
[2024-08-05 10:33] LABS: Basophils # 0.1 K/mm3 (0-0.2); Basophils % 0.7 % (0.1-2.0); Eosinophils # 0.4 K/mm3 (0.0-0.4); Eosinophils % 4.3 % (0.1-12.0); Hematocrit 45.8 % (42.0-52.0); Hemoglobin 15.2 g/dL (14.1-18.0); Lymphocytes # 1.6 K/mm3 (0.7-4.5); Lymphocytes % 19.2 % (10-50); Mean Corpuscular HGB Conc 33.2 g/dL (31.8-35.4); Mean Corpuscular Hemoglobin 29.5 pg (27.0-31.2); Mean Corpuscular Volume 88.8 fl (80-94); Mean Platelet Volume 11.1 fl (7.4-10.4); Monocytes # 0.6 K/mm3 (0.1-1.0); Monocytes % 7.6 % (1.7-9.3); Neutrophils # 5.6 K/mm3 (1.8-7.8); Platelet Count 271 K/mm3 (142-424); Red Blood Count 5.16 M/mm3 (4.60-6.20); Red Cell Distribution Width 12.4 % (11.5-17.5); White Blood Count 8.2 K/mm3 (4.8-10.8)
[2024-08-05 10:37] LABS: RBC Morphology Normal
[2024-08-05 10:38] LABS: Platelet Estimate Normal
== END 2024-08-05 23:59 | disposition home or self-care (01) ==
LOC: LAB 08:21
PROVIDERS: PCP Family Medicine; Visit Provider Specialist
DX: G50.0 Trigeminal neuralgia (principal); I10 Essential (primary) hypertension; Z85.528 Personal history of other malignant neoplasm of kidney; Z87.891 Personal history of nicotine dependence
CPT/HCPCS: 36415; 80053; 85007; 85014; 85018; 85048; 85049

== ENCOUNTER 2024-08-06 16:16 | Emergency (ER) | payer MEDICARE, OTHER, SELFPAY ==
[2024-08-06 16:30] VITALS: BP 195/101; PULSE 98; RESP 20; TEMP 36.6; O2SAT 95; BMI 36.9
--- NOTE | 2024-08-06 17:02 | ED_ITS ---
Discharge Plan Disposition Patient Disposition: Home, Self-Care Condition: Good Prescriptions Prescriptions: New prednisone 10 mg tablet 10 mg PO DIRECTED 6 Days Qty: 6 0RF Rx Instructions: Take 4 tablets daily for 2 days, then take 2 tablets daily for 2 days, then take 1 tablet daily for 2 days, then stop. benzonatate 100 mg capsule 100 mg PO TIDP PRN (Reason: Cough) Qty: 30 0RF amoxicillin-pot clavulanate 875-125 mg Tablet 1 tab PO Q12H Qty: 20 0RF No Action losartan 25 mg tablet 25 mg PO DAILY Patient Comments: TAKE 1 TABLET BY MOUTH ONCE DAILY atorvastatin 20 mg tablet 20 mg PO DAILY amlodipine 2.5 mg tablet 2.5 mg PO DAILY amlodipine-benazepril 5-20 mg capsule 1 cap PO DAILY Referrals Follow up/Referrals: Karmen Mehta MD [Primary Care Provider] - See instructions Activity Restrictions/Add. Instructions Additional Instructions/Restrictions: Drink plenty of fluids. Take tylenol or ibuprofen for pain or fever. Take the medications as directed. Follow up with your regular doctor. GO TO THE ER FOR ANY WORSENING SYMPTOMS Clinical Impressions Clinical Impression: Sinusitis, Acute viral syndrome Instructions Patient Instructions: Sinusitis, DI for Sinusitis, Prednisone, Amoxicillin and Clavulanic Acid Print Language Print Language: Divehi Discharge ED Provider: Jordi Anderson [facility] General Stated complaint: Chest congestion,cough,head congestion Mode of Arrival: Ambulatory Source of Information: Patient Limitations: No Limitations Time Seen by Provider: 08/06/24 17:02 Description of Symptoms (Recalled from Triage Doc. by RN): PATIENT C/O SINUS AND CHEST CONGESTION SINCE YESTERDAY HEENT Symptoms (Recalled from RN notes): Yes Resp Symptoms (Recalled from RN notes): Yes Skin Symptoms (Recalled from RN notes): No MS Symptoms (Recalled from RN notes): No Functional Status (Recalled from RN notes): WNL History of Present Illness Provider Complaint: He states that for the past 2 days he has had worsening sinus congestion and sore throat. Related Data Home Medications ?Medication ?Instructions ?Recorded ?Confirmed amlodipine 2.5 mg tablet 2.5 mg PO DAILY 06/19/24 08/06/24 amlodipine 5 mg-benazepril 20 mg 1 cap PO DAILY 06/19/24 08/06/24 capsule atorvastatin 20 mg tablet 20 mg PO DAILY 06/19/24 08/06/24 losartan 25 mg tablet 25 mg PO DAILY 08/04/24 08/06/24 Previous Rx's ?Medication ?Instructions ?Recorded amoxicillin 875 mg-potassium 1 tab PO Q12H #20 tabs 08/06/24 clavulanate 125 mg tablet benzonatate 100 mg capsule 100 mg PO TIDP PRN Cough #30 caps 08/06/24 prednisone 10 mg tablet 10 mg PO DIRECTED 6 days #6 tabs 08/06/24 Allergies Allergy/AdvReac Type Severity Reaction Status Date / Time azithromycin (From ZITHROMAX) Allergy Unknown Verified 08/04/24 14:31 Worker's Comp Is this a Worker's Comp case?: No [facility] Disclaimer: The information contained in this section may have been updated after the patient was seen, as this information can be updated by other users. Medical History (Updated 08/06/24 @ 17:15 by Jordi Anderson APRN) Facial pain History of ulcer disease History of neck pain History of varicose veins of lower extremity History of hyperlipidemia Trigeminal neuralgia of left side of face History of hypertension Nocturia Renal cell cancer Surgical History History of nephrectomy, left Family History Other Cancer Coronary artery disease Emphysema of lung Social History (Updated 08/04/24 @ 14:56 by Sarika Chaves) Smoking Status: Former smoker tobacco type: cigarettes packs per day: 1 smoking status stop date: 2015 alcohol intake: never substance use type: denies use current occupational status: retired Travel in the last 8 weeks: None household members: spouse housing: house marital status: number of children: 3 Have you lived/traveled outside [place] in past 30 days?: No Contact w/someone who lives/traveled outside [place] past 30 days?: No Exposure to someone with infectious disease in past 14 days?: No Do you have a fever (greater than 100.4 F or 38 C)?: No Have you tested positive for COVID-19: No Exposed to someone with COVID-19 in past 14 days?: No Do you have a sore throat?: No Do you have a cough?: Yes Do you have any weakness?: No Do you have any diarrhea?: No Are you experiencing any unusual bleeding?: No Do you have any muscle aches/pain?: No Do you have any abdominal pain?: No Are you experiencing loss of taste or smell?: No ROS Obtained: Yes All systems reviewed & no additional complaints except as documented Constitutional Constitutional: Reports chills and Reports fever(s) Eyes Eyes: Denies eye discharge ENT Ears, Nose, Mouth, and Throat: Reports as per HPI Cardiovascular Cardiovascular: Denies chest pain Respiratory Respiratory: Denies chest congestion and Reports cough Gastrointestinal Gastrointestingal: Reports nausea; Denies abdominal pain, constipation, cramping, diarrhea or vomiting Musculoskeletal Musculoskeletal: Denies arthralgias Integumentary/Breasts Skin/Breast: Denies rash Neurologic Neurologic: Denies paresthesias Physical Exam General General appearance: alert and in no apparent distress Eye Eye exam: Present normal appearance, PERRL and EOMI ENT ENT exam: Present mucous membranes moist and normal external ear exam Expanded ENT Exam External ear exam: Present normal external inspection TM/Canal exam: Bilateral TM: erythema and bulging Nose exam: Absent sinus tenderness Nasal speculum exam: Bilateral: normal Mouth exam: Present normal external inspection; Absent drooling Teeth exam: Present normal inspection Throat exam: Present tonsillar erythema and tonsillomegaly Neck Neck exam: Present normal inspection, full ROM and trachea midline; Absent tenderness, lymphadenopathy or thyromegaly Chest Chest inspection: Present normal inspection and symmetric chest wall rise; Absent tenderness or rash Respiratory Respiratory exam: Present normal lung sounds bilaterally; Absent respiratory distress, wheezes, stridor or accessory muscle use Cardiovascular Cardiovascular exam: Present regular rate, normal rhythm and normal heart sounds Abdominal Exam Abdominal exam: Present soft; Absent distention, tenderness, guarding, rebound or rigidity Extremities Exam Extremities exam: Present normal inspection, full ROM and normal capillary refill; Absent tenderness or calf tenderness Back Exam Back exam: Present normal inspection and full ROM; Absent tenderness Neurological Exam Neurological exam: Present alert and oriented X3 Psychiatric Psychiatric exam: Present normal affect and normal mood Skin Skin exam: Present warm, dry, intact and normal color Lymphatic Lymphatic Findings: no adenopathy Medical Decision Making Medical Records Medical records reviewed: No I reviewed the patient's medical records. Screening: Per USPSTF and CDC recommendations, given the prevalence of disease in our region, it is our hospital?s policy to screen for HIV and viral Hepatitis for all patients aged 18 and over and those with ongoing risk factors. Onel Inquiry Pt receiving controlled substance: No Vital Signs: 08/06/24 16:30 Temperature 97.9 F Temperature Source Oral Pulse Rate [Left Brachial] 98 H Respiratory Rate 20 Blood Pressure [Left Arm] 195/101 H Blood Pressure Mean [Left Arm] 132 Blood Pressure Source [Left Arm] Automatic Cuff Blood Pressure Position [Left Arm] Sitting 02 Sat by Pulse Oximetry 95 Oxygen Delivery Method Room Air Lab Data Lab results reviewed: Yes I reviewed the patient's lab results.
[2024-08-06 17:18] VITALS: BP 195/101; PULSE 98; RESP 20; TEMP 36.6; O2SAT 95
[2024-08-06 17:23] LABS: Coronavirus 19, PCR Not Detected (NotDetected); Influenza A, PCR Not Detected (NotDetected); Influenza B, PCR Not Detected (NotDetected); Respiratory Syncytial Virus Not Detected (NotDetected)
[2024-08-06 19:46] LABS: Human Rhinovirus Detected (NotDetected)
== END 2024-08-06 17:20 | disposition home or self-care (01) ==
PROVIDERS: Emergency Provider Nurse Practitioner Family; PCP Family Medicine
DX: B34.9 Viral infection, unspecified (principal); J32.9 Chronic sinusitis, unspecified
CPT/HCPCS: 87631; 99213; G0381

== ENCOUNTER 2024-09-13 13:51 | Emergency (ER) | payer MEDICARE, OTHER, SELFPAY ==
[2024-09-13 13:52] VITALS: BP 202/127; PULSE 86; RESP 20; TEMP 36.9; O2SAT 97; BMI 35.9
--- NOTE | 2024-09-13 14:05 | ED_ITS ---
<Statement entered by Josee Ghosh DO - 09/14/24 07:09> I was consulted by the BEVER[facility], and we discussed the complexity of the problems being addressed. I approved the treatment and management plan for this patient's care in the emergency department, thus performing a substantive portion of the medical decision making. Josee Ghosh DO Discharge Plan Disposition Patient Disposition: Home, Self-Care Condition: Good Prescriptions Prescriptions: No Action losartan 25 mg tablet 25 mg PO DAILY Patient Comments: TAKE 1 TABLET BY MOUTH ONCE DAILY carbamazepine 100 mg tablet,chewable 100 mg PO DAILY Qty: 270 1RF Rx Instructions: 100 mg in the morning and 200 mg at night if persistent pain atorvastatin 20 mg tablet 20 mg PO DAILY amlodipine 2.5 mg tablet 2.5 mg PO DAILY amlodipine-benazepril 5-20 mg capsule 1 cap PO DAILY aspirin [Aspir-81] 81 mg Tablet,Delayed Release (Dr/Ec) 81 mg PO DAILY gabapentin 100 mg capsule 100 mg PO TID hydrochlorothiazide 12.5 mg Tablet 12.5 mg PO DAILY Referrals Follow up/Referrals: Karmen Mehta MD [Primary Care Provider] - See instructions Karen Schroeder MD [Referring] - See instructions Nic Jacob MD [Staff Physician] - See instructions Activity Restrictions/Add. Instructions Additional Instructions/Restrictions: As we discussed I am referring you to both cardiology and dermatology. Please call to make your appointment tomorrow. Please contact your neurologist for recommendations on managing her trigeminal neuralgia. If you have any continuing new or worsening signs or symptoms follow-up with your PCP within 48 hours or sooner if needed or return to the ER as needed. Clinical Impressions Clinical Impression: Hypertension, uncontrolled, Rash, Trigeminal neuralgia Print Language Print Language: Greenlandic Discharge ED Provider: Josee Ghosh General Adult HPI <MAIDA Silva - Last Filed: 09/13/24 23:02> General Chief complaint: Recheck/Abnormal Lab/Rx Stated complaint: high BP, dizzy, headache Time Seen by Provider: 09/13/24 14:05 History of Present Illness HPI narrative: Patient presents for evaluation of elevated blood pressure and dizziness. Patient reports that he noticed that his blood pressure was significantly elevated today and over 200. He has had several month history of medication changes regarding his blood pressure. Review of his records shows that he is on 2 different amlodipine pills 1 is a combination 1 is single amlodipine. Additionally patient has a history of trigeminal neuralgia and he is recently been changed from gabapentin to Tegretol. Patient reports that his trigeminal neuralgia has been more painful especially today. Patient denies any focal neurologic deficits denies chest pain shortness of breath fever chills hemoptysis hematochezia melena nausea vomiting diarrhea. Patient reports that his dizziness is currently not present. Related Data Home Medications ?Medication ?Instructions ?Recorded ?Confirmed amlodipine 2.5 mg tablet 2.5 mg PO DAILY 06/19/24 09/13/24 amlodipine 5 mg-benazepril 20 mg 1 cap PO DAILY 06/19/24 09/13/24 capsule atorvastatin 20 mg tablet 20 mg PO DAILY 06/19/24 09/13/24 losartan 25 mg tablet 25 mg PO DAILY 08/04/24 09/13/24 aspirin 81 mg tablet,delayed 81 mg PO DAILY 09/13/24 09/13/24 release gabapentin 100 mg capsule 100 mg PO TID 09/13/24 09/13/24 hydrochlorothiazide 12.5 mg tablet 12.5 mg PO DAILY 09/13/24 09/13/24 Previous Rx's ?Medication ?Instructions ?Recorded carbamazepine 100 mg chewable 100 mg PO DAILY #270 tabs 08/16/24 tablet Allergies Allergy/AdvReac Type Severity Reaction Status Date / Time azithromycin (From ZITHROMAX) Allergy Mild Other Verified 09/13/24 14:21 [facility] <MAIDA Silva - Last Filed: 09/13/24 23:02> [facility] Disclaimer: The information contained in this section may have been updated after the patient was seen, as this information can be updated by other users. Medical History (Updated 09/13/24 @ 16:02 by MAIDA Silva) Facial pain History of ulcer disease History of neck pain History of varicose veins of lower extremity History of hyperlipidemia Trigeminal neuralgia of left side of face History of hypertension Nocturia Renal cell cancer Surgical History History of nephrectomy, left Family History Other Cancer Coronary artery disease Emphysema of lung Social History Smoking Status: Never smoker smoking status stop date: 2015 alcohol intake: never substance use type: denies use current occupational status: retired Travel in the last 8 weeks: None household members: spouse housing: house marital status: number of children: 3 Have you lived/traveled outside [place] in past 30 days?: No Contact w/someone who lives/traveled outside US past 30 days?: No Exposure to someone with infectious disease in past 14 days?: No Do you have a fever (greater than 100.4 F or 38 C)?: No Have you tested positive for COVID-19: No Exposed to someone with COVID-19 in past 14 days?: No Do you have a sore throat?: No Do you have a cough?: No Do you have any weakness?: No Do you have any diarrhea?: No Are you experiencing any unusual bleeding?: No Do you have any muscle aches/pain?: No Do you have any abdominal pain?: No Are you experiencing loss of taste or smell?: No Other Medical History Have you received the Flu Vaccine for this season: Yes Have you received the Pneumonia Vaccine: No <MAIDA Silva - Last Filed: 09/13/24 23:02> ROS Obtained: Yes Systems reviewed as appropriate & no additional complaints except as documented Physical Exam <MAIDA Silva - Last Filed: 09/13/24 23:02> General General appearance: alert and in no apparent distress Respiratory Respiratory exam: Present normal lung sounds bilaterally Cardiovascular Cardiovascular exam: Present regular rate Neurological Exam Neurological exam: Present alert and oriented X3 Medical Decision Making <MAIDA Silva - Last Filed: 09/13/24 23:02> Medical Records Medical records reviewed: Yes I reviewed the patient's medical records. Screening: Per USPSTF and CDC recommendations, given the prevalence of disease in our region, it is our hospital?s policy to screen for HIV and viral Hepatitis for all patients aged 18 and over and those with ongoing risk factors. Onel Inquiry Pt receiving controlled substance: No Vital Signs: 09/13/24 13:52 09/13/24 14:09 09/13/24 15:00 Temperature 98.5 F Temperature Source Oral Pulse Rate 94 H 78 Pulse Rate [Left Radial] 86 Respiratory Rate 20 Blood Pressure 168/104 H 162/103 H Blood Pressure [Right Arm] 202/127 H Blood Pressure Mean [Right Arm] 152 02 Sat by Pulse Oximetry 97 96 95 Oxygen Delivery Method Room Air Room Air Room Air 09/13/24 16:07 Temperature 98.2 F Temperature Source Pulse Rate 76 Pulse Rate [Left Radial] Respiratory Rate 20 Blood Pressure 176/119 H Blood Pressure [Right Arm] Blood Pressure Mean [Right Arm] 02 Sat by Pulse Oximetry Oxygen Delivery Method Room Air Lab Data Lab results reviewed: Yes I reviewed the patient's lab results. Lab Results 09/13/24 14:40: Urine Color Yellow, Urine Appearance Clear, Urine pH 7.0, Ur Specific Michie 1.010, Urine Protein Negative, Urine Glucose (UA) Negative, Urine Ketones Negative, Urine Blood Negative, Urine Nitrate Negative, Urine Bilirubin Negative, Urine Urobilinogen 0.2, Ur Leukocyte Esterase Negative, Urine RBC Occasional, Urine WBC None, Ur Squamous Epith Cells None, Urine Bacteria None 09/13/24 15:00: WBC 7.2, RBC 4.82, Hgb 14.1, Hct 41.3 L, MCV 85.7, MCH 29.3, MCHC 34.1, RDW 12.6, Plt Count 280, MPV 9.6, Neut % (Auto) 70.1, Lymph % (Auto) 19.9, Crowley % (Auto) 6.4, Eos % (Auto) 2.9, Baso % (Auto) 0.6, Neut # (Auto) 5.0, Lymph # (Auto) 1.4, Crowley # (Auto) 0.5, Eos # (Auto) 0.2, Baso # (Auto) 0.0, S odium 129 L, Potassium 4.0, Chloride 96 L, Carbon Dioxide 25, Anion Gap 12.0, BUN 17, Creatinine 0.90, Estimated Creat Clear 107, Estimated GFR 83, Est GFR ( Amer) 100, Glucose 100, Calcium 8.5, Magnesium 1.8, Total Bilirubin 0.4, AST 32, ALT 30, Alkaline Phosphatase 61, Troponin I < 0.01, Total Protein 7.3, Albumin 4.5, Globulin 2.8, Albumin/Globulin Ratio 1.6, TSH 1.92, Free T4 Index 2.4 L, Thyroxine (T4) 6.8, T3 Uptake 35 09/13/24 15:00 09/13/24 15:00 Orders (Tests/Meds): ED MEDICATIONS Discontinued Medications Generic Name Dose Route Start Last Admin Trade Name Ismael PRN Reason Stop Dose Admin Acetaminophen 1,000 mg 09/13/24 14:09 09/13/24 14:32 Acetaminophen 500mg Tab PO 09/13/24 14:10 1,000 mg ONCE ONE Administration Ibuprofen 800 mg 09/13/24 14:09 09/13/24 14:32 Ibuprofen 400 Mg Tablet PO 09/13/24 14:10 800 mg ONCE ONE Administration ORDERS Category Date Time Status CBC w/Auto Diff [Complete Blood Count Auto Diff] Stat Lab 09/13/24 15:00 Completed CMP [Comprehensive Metabolic Panel] Stat Lab 09/13/24 15:00 Completed Magnesium Stat Lab 09/13/24 15:00 Completed Thyroid Panel Stat Lab 09/13/24 15:00 Completed Trop I [Troponin I] Stat Lab 09/13/24 15:00 Completed UA [Urinalysis and Microscopic] Stat Lab 09/13/24 14:40 Completed Medical Decision Narrative: In summary patient is a 73-year-old male who presents to the emergency department for evaluation of elevated blood pressure and dizziness. Patient is initially hypertensive at 202/127 with a heart rate of 86 respiratory rate 20 temperature is 98.5 O2 sats 97% on room air upon arrival. Physical exam however is remarkable for a well-nourished well-developed 73-year-old gentleman who is currently in no acute distress. Timi Coma Score 15. Patient is awake alert and oriented person place and circumstance. Cranial nerves II through XII are intact grossly to exam. Patient has no nuchal rigidity or meningeal signs. Patient has no C-spine tenderness. Pupils equal round reactive to light and accommodation without icterus. There is no carotid bruits. Breath sounds are clear and equal bilaterally to the bases without adventitious sounds. Heart sounds are S1-S2 regular rate and rhythm without murmurs gallops rubs or thrills. There is no dependent edema noted. Additionally patient has a scaling rash on his upper anterior chest and in the midline over his lumbar spine that is excoriated without evidence of edema fluctuance or infection. Patient states rash has been there for about 3 months.. Differential diagnosis includes uncontrolled hypertension versus neuropathic pain versus eczema versus psoriasis. Present syndrome was considered however patient has no dizziness currently even with elevated blood pressure suggesting that there may be another cause thus that diagnosis was not pursued. Initial workup will be conducted with hematologic labs urinalysis EKG. Initial interventions include Tylenol and ibuprofen. Initial workup reviewed by me and his hematologic labs are nonactionable including a negative troponin however patient has a sodium of 129. Upon repeat evaluation patient remains asymptomatic and his blood pressure has come down to 176/119 which is still elevated from the diastolic perspective the patient is currently asymptomatic.. Given this I had interactive discussion and offered the patient admission versus outpatient follow-up and via patient directed discharge and decision making patient has elected to follow-up with his PCP for recheck. He I have additionally recommended the patient follow-up with cardiology for better medication management of his hypertension as well as referral to dermatology for his rash. Thus patient will be discharged with close follow-up with his PCP and strict return precautions. <Josee Ghosh, DO - Last Filed: 09/13/24 14:45> Vital Signs: 09/13/24 13:52 09/13/24 14:09 09/13/24 15:00 Temperature 98.5 F Temperature Source Oral Pulse Rate 94 H 78 Pulse Rate [Left Radial] 86 Respiratory Rate 20 Blood Pressure 168/104 H 162/103 H Blood Pressure [Right Arm] 202/127 H Blood Pressure Mean [Right Arm] 152 02 Sat by Pulse Oximetry 97 96 95 Oxygen Delivery Method Room Air Room Air Room Air 09/13/24 16:07 Temperature 98.2 F Temperature Source Pulse Rate 76 Pulse Rate [Left Radial] Respiratory Rate 20 Blood Pressure 176/119 H Blood Pressure [Right Arm] Blood Pressure Mean [Right Arm] 02 Sat by Pulse Oximetry Oxygen Delivery Method Room Air Lab Data Lab Results 09/13/24 14:40: Urine Color Yellow, Urine Appearance Clear, Urine pH 7.0, Ur Specific Michie 1.010, Urine Protein Negative, Urine Glucose (UA) Negative, Urine Ketones Negative, Urine Blood Negative, Urine Nitrate Negative, Urine Bilirubin Negative, Urine Urobilinogen 0.2, Ur Leukocyte Esterase Negative, Urine RBC Occasional, Urine WBC None, Ur Squamous Epith Cells None, Urine Bacteria None 09/13/24 15:00: WBC 7.2, RBC 4.82, Hgb 14.1, Hct 41.3 L, MCV 85.7, MCH 29.3, MCHC 34.1, RDW 12.6, Plt Count 280, MPV 9.6, Neut % (Auto) 70.1, Lymph % (Auto) 19.9, Crowley % (Auto) 6.4, Eos % (Auto) 2.9, Baso % (Auto) 0.6, Neut # (Auto) 5.0, Lymph # (Auto) 1.4, Crowley # (Auto) 0.5, Eos # (Auto) 0.2, Baso # (Auto) 0.0, S odium 129 L, Potassium 4.0, Chloride 96 L, Carbon Dioxide 25, Anion Gap 12.0, BUN 17, Creatinine 0.90, Estimated Creat Clear 107, Estimated GFR 83, Est GFR ( Amer) 100, Glucose 100, Calcium 8.5, Magnesium 1.8, Total Bilirubin 0.4, AST 32, ALT 30, Alkaline Phosphatase 61, Troponin I < 0.01, Total Protein 7.3, Albumin 4.5, Globulin 2.8, Albumin/Globulin Ratio 1.6, TSH 1.92, Free T4 Index 2.4 L, Thyroxine (T4) 6.8, T3 Uptake 35 Orders (Tests/Meds): ED MEDICATIONS Discontinued Medications Generic Name Dose Route Start Last Admin Trade Name Freq PRN Reason Stop Dose Admin Acetaminophen 1,000 mg 09/13/24 14:09 09/13/24 14:32 Acetaminophen 500mg Tab PO 09/13/24 14:10 1,000 mg ONCE ONE Administration Ibuprofen 800 mg 09/13/24 14:09 09/13/24 14:32 Ibuprofen 400 Mg Tablet PO 09/13/24 14:10 800 mg ONCE ONE Administration ORDERS Category Date Time Status CBC w/Auto Diff [Complete Blood Count Auto Diff] Stat Lab 09/13/24 15:00 Completed CMP [Comprehensive Metabolic Panel] Stat Lab 09/13/24 15:00 Completed Magnesium Stat Lab 09/13/24 15:00 Completed Thyroid Panel Stat Lab 09/13/24 15:00 Completed Trop I [Troponin I] Stat Lab 09/13/24 15:00 Completed UA [Urinalysis and Microscopic] Stat Lab 09/13/24 14:40 Completed ECG Data Tracing #1: I reviewed this ECG and interpreted as documented below: Normal sinus rhythm with a ventricular to [address] changes without STEMI. Some motion artifact. Normal intervals QTc 407 ms ECG initial impression date: 09/13/24 ECG initial impression time: 14:18 Critical Care <MAIDA Silva - Last Filed: 09/13/24 23:02> Critical Care Time Critical Care Time: No
[2024-09-13 14:09] VITALS: BP 168/104; PULSE 94; O2SAT 96
--- NOTE | 2024-09-13 14:16 | ECG_ITS ---
APPROVED REPORT Exam: Resting ECG HR:74 bpm ECG Measurements Heart Rate 74 AXES WA 156 P 65 QRSd 84 QRS 63 QT 379 T 73 QTc 407 Conclusion SINUS RHYTHM NORMAL ECG Electronically signed by : RJ MCGUIRE, 09/13/2024 15:09:53
[2024-09-13] MEDS: ACETAMINOPHEN 500MG TAB 1000 MG PO (14:32)
[2024-09-13] MEDS: IBUPROFEN 400 MG TABLET 800 MG PO (14:32)
[2024-09-13 14:43] LABS: Microscopic, Urine URINE MICROSCOPIC (MICROSCOPIC)
[2024-09-13 14:45] LABS: Appearance,Urine CLEAR (Clear); Bilirubin,Urine Negative (Negative); Blood, Urine Negative (Negative); Color,Urine YELLOW (Yellow); Glucose,Urine (UA) Negative (Negative); Ketones,Urine Negative (Negative); Leukocyte Esterase,Urine Negative (Negative); Nitrate,Urine Negative (Negative); Protein,Urine Negative (Negative); Urobilinogen,Urine 0.2 EU/dl (0.2)
[2024-09-13 15:00] VITALS: BP 162/103; PULSE 78; O2SAT 95
[2024-09-13 15:00] LABS: RBC,Urine Occasional #/hpf (0-3)
[2024-09-13 15:09] LABS: Basophils % 0.6 % (0.1-2.0); Eosinophils # 0.2 K/mm3 (0.0-0.4); Eosinophils % 2.9 % (0.1-12.0); Hematocrit 41.3 % (42.0-52.0); Hemoglobin 14.1 g/dL (14.1-18.0); Lymphocytes # 1.4 K/mm3 (0.7-4.5); Lymphocytes % 19.9 % (10-50); Mean Corpuscular HGB Conc 34.1 g/dL (31.8-35.4); Mean Corpuscular Hemoglobin 29.3 pg (27.0-31.2); Mean Corpuscular Volume 85.7 fl (80-94); Mean Platelet Volume 9.6 fl (7.4-10.4); Monocytes # 0.5 K/mm3 (0.1-1.0); Monocytes % 6.4 % (1.7-9.3); Neutrophils % 70.1 % (37.0-80.0); Platelet Count 280 K/mm3 (142-424); Red Blood Count 4.82 M/mm3 (4.60-6.20); Red Cell Distribution Width 12.6 % (11.5-17.5); White Blood Count 7.2 K/mm3 (4.8-10.8)
[2024-09-13 15:23] LABS: Albumin Level 4.5 g/dl (3.5-5.0); Chloride 96 mmol/L (98-107); Sodium 129 mmol/L (136-145)
[2024-09-13 15:25] LABS: Alanine Aminotransferase 30 U/L (12-78); Aspartate Amino Transferase 32 U/L (17-59); Blood Urea Nitrogen 17 mg/dl (9-20); Creatinine Clearance Estimated 107 mL/min (50-200); Estimated Glomerular Filt Rate 83 ml/min (>60); GFR (African American) 100 ML/MIN (>60)
[2024-09-13 15:26] LABS: Albumin/Globulin Ratio 1.6 (1.1-1.8); Alkaline Phosphatase 61 U/L (38-126); Bilirubin,Total 0.4 mg/dl (0.2-1.3); Calcium 8.5 mg/dl (8.4-10.2); Carbon Dioxide 25 mmol/L (22.0-30.0); Globulin 2.8 g/dL (1.3-3.2); Glucose 100 mg/dl (74-100); Magnesium 1.8 mg/dl (1.6-2.3); Total Protein,Serum 7.3 g/dl (6.3-8.2)
[2024-09-13 15:43] LABS: Triiodothryronine (T3) Uptake 35 % (23.5-40.5)
[2024-09-13 15:44] LABS: Free Thyroxine Index 2.4 ug/dL (5.93-13.13); T4 (Thyroxine) 6.8 ug/dl (5.53-11.0)
[2024-09-13 15:54] LABS: Troponin I < 0.01 ng/ml (0.00-0.034)
[2024-09-13 15:57] LABS: Thyroid Stimulating Hormone 1.92 uIU/mL (0.465-4.68)
[2024-09-13 16:07] VITALS: BP 176/119; PULSE 76; RESP 20; TEMP 36.8; O2SAT 99
== END 2024-09-13 16:08 | disposition home or self-care (01) ==
PROVIDERS: Physician Assistant; Emergency Provider Emergency Medicine; PCP Family Medicine
DX: G50.0 Trigeminal neuralgia (principal); R21 Rash and other nonspecific skin eruption; I10 Essential (primary) hypertension; R42 Dizziness and giddiness
CPT/HCPCS: 80053; 81001; 83735; 84436; 84443; 84479; 84484; 85025; 93005; 99283

== ENCOUNTER 2024-09-27 14:31 | Outpatient (CLI) | payer MEDICARE, OTHER, SELFPAY ==
--- NOTE | 2024-09-27 14:32 | MR_ITS ---
FINAL REPORT TECHNIQUE: Multiplanar MR, without and with gadolinium enhancement CLINICAL HISTORY: Trigeminal neuralgia numbness and tingling in hands 23 ml prohance COMPARISON: None FINDINGS: Diffusion sequences show no signal abnormality to indicate acute infarct. Mild generalized atrophy is present. There are foci of periventricular and subcortical white matter signal, which do not enhance, consistent with mild changes of chronic ischemic microvascular disease. There is no abnormal enhancement in the brain or along the course of the trigeminal nerves. 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 IMPRESSION: No enhancing mass is noted along the course of the trigeminal nerves intracranially. 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 Periventricular white matter changes consistent with mild chronic ischemic microvascular disease. Reviewed, Interpreted and Dictated by Zia Richey MD Transcribed by Rylie Alberts Authenticated and [facility]
[2024-09-27] MEDS: GADOTERIDOL INJ 10ML SYRINGE 3 ML IV (15:25)
[2024-09-27] MEDS: SODIUM CHLORIDE 0.9% 10ML SYR (RAD ONLY) 10 ML IV (15:25)
[2024-09-27] MEDS: GADOTERIDOL INJ 20ML SYRINGE 20 ML IV (15:25)
== END 2024-09-27 23:59 | disposition home or self-care (01) ==
LOC: RAD 14:32
PROVIDERS: PCP Family Medicine; Visit Provider Specialist
DX: G50.0 Trigeminal neuralgia (principal); R51.9 Headache, unspecified; Z85.528 Personal history of other malignant neoplasm of kidney
CPT/HCPCS: 70553; A9576

== ENCOUNTER 2024-11-01 09:12 | Outpatient (CLI) | payer MEDICARE, OTHER, SELFPAY ==
[2024-11-01 10:06] LABS: Alanine Aminotransferase 34 U/L (12-78); Albumin Level 4.4 g/dl (3.5-5.0); Albumin/Globulin Ratio 1.5 (1.1-1.8); Alkaline Phosphatase 63 U/L (38-126); Anion Gap 12.6 mEq/L (5-15); Aspartate Amino Transferase 24 U/L (17-59); Bilirubin,Total 0.5 mg/dl (0.2-1.3); Blood Urea Nitrogen 22 mg/dl (9-20); Calcium 9.2 mg/dl (8.4-10.2); Carbon Dioxide 28 mmol/L (22.0-30.0); Chloride 94 mmol/L (98-107); Estimated Glomerular Filt Rate 73 ml/min (>60); GFR (African American) 89 ML/MIN (>60); Globulin 2.9 g/dL (1.3-3.2); Glucose 124 mg/dl (74-100); Potassium 4.6 mmoL/L (3.5-5.1); Sodium 130 mmol/L (136-145); Total Protein,Serum 7.3 g/dl (6.3-8.2)
[2024-11-01 10:56] LABS: Vitamin B12 456 pg/mL (239-931)
== END 2024-11-01 23:59 | disposition home or self-care (01) ==
LOC: LAB 09:13
PROVIDERS: PCP Family Medicine; Visit Provider Specialist
DX: G50.0 Trigeminal neuralgia (principal); I10 Essential (primary) hypertension
CPT/HCPCS: 36415; 80053; 82607

== ENCOUNTER 2024-11-06 12:16 | Emergency (ER) | payer MEDICARE, OTHER, SELFPAY ==
[2024-11-06 12:24] VITALS: BP 154/104; PULSE 89; O2SAT 91
[2024-11-06 12:27] VITALS: BP 154/104; PULSE 90; RESP 18; TEMP 36.4; O2SAT 95; BMI 36.7
[2024-11-06 12:30] VITALS: BP 167/106; PULSE 87; O2SAT 95
--- OUTSIDE RECORDS SUMMARY | 2024-11-06 12:35 | XMS_ITS | Data Portability ---
Author Organization [facility] Medicine and [facility] [place] Address [address] [place] [address] Assessment No assessment recorded. Plan of Treatment Reminders Order Date Submit Date Provider Last Modified By Organization Details Last Modified Time Details Appointments OV EST 15 2024 09:45A M Carson Cali Jr, MD Not available Not available Not available Lab BMP, blood 2023 024 [email or web address] [facility] (Laboratory), [address] [place], [address], 05/26/2024 07:24:28 PSA, serum or plasma 2023 024 [facility] (Laboratory), [place], [address], 05/19/2024 17:26:16 hepatic function panel, serum 2023 024 [facility] (Laboratory), [place], [address], 05/19/2024 17:27:28 CMP, serum or plasma [address] (Laboratory), [place], [address], 05/08/2023 10:51:26 Referral None recorded. Procedures None recorded. Surgeries None recorded. Imaging XR, chest, 2 view [address] [facility], [address] [place] [address] [place], [address], 05/19/2024 14:11:58 XR, chest, 2 view 2022 023 [email or web address] [facility] (Radiology), [address], [place], [address], 05/08/2023 10:51:26 Medication Orders None recorded. Patient TargetsNo targets recorded. Patient InstructionsNo instructions recorded. Reason for Referral None Reported. Results Created Date Observation Date Name Description Value Unit Range Abnormal Flag Note LastModifiedBy Organization Detail LastModifiedTime 05/07/2005/07/2023 COMP METAB OLIC PANEL sodium 136 mmol/ L 136-14 5 Not Available [facility] (Lab Registration) [address], [place], [address], 05/07/2023 17:04:33 05/07/2005/07/2023 COMP METAB OLIC PANEL potassium 5.0 mmol/ L 3.5-5. 1 Not Available [facility] (Lab Registration) [address], [place], [address], 05/07/2023 17:04:33 05/07/2005/07/2023 COMP METAB OLIC PANEL chloride 99 mmol/ L 98-107 Not Available [facility] (Lab Registration) [address] [place], [address], 05/07/2023 17:04:33 05/07/2005/07/2023 COMP METAB OLIC PANEL carbon dioxide 29 mmol/ L 21-32 Not Available [facility] (Lab Registration) [address] [place], [address], 05/07/2023 17:04:33 05/07/2005/07/2023 COMP METAB OLIC PANEL anion gap 8.0 Not Available [facility] (Lab Registration) [address] [place], [address], 05/07/2023 17:04:33 10/11/20 23 05/07/2023 COMP METAB OLIC PANEL glucose 110 mg/dL 70-110 Not Available [facility] (Lab Registration) [address] [place], [address], 05/07/2023 17:04:33 05/07/20 23 05/07/2023 COMP METAB OLIC PANEL blood urea nitrogen 18 mg/dL 7-18 Not Available [facility] (Lab Registration) [address] [place], [address], 05/07/2023 17:04:33 05/07/20 23 05/07/2023 COMP METAB OLIC PANEL creatinine 1.1 mg/dL 0.8-1. 3 Not Available [facility] (Lab Registration) [address] [place], [address], 05/07/2023 17:04:33 05/07/20 23 05/07/2023 COMP METAB OLIC PANEL BUN/creatini ne ratio 16.4 ratio 9-21 Not Available [facility] (Lab Registration) [address] [place], [address], 05/07/2023 17:04:33 05/07/2005/07/2023 COMP METAB OLIC PANEL estimated glom filtration rate 70 mL/mi n >60- Not Available [facility] (Lab Registration) [address] [place], [address], 05/07/2023 17:04:33 05/07/20 23 05/07/2023 COMP METAB OLIC PANEL total protein 7.5 g/dL 6.4-8. 2 Not Available [facility] (Lab Registration) [address] [place], [address], 05/07/2023 17:04:33 05/07/20 23 05/07/2023 COMP METAB OLIC PANEL albumin 4.1 g/dL 3.4-5. 0 Not Available [facility] (Lab Registration) [address] [place], [address], 05/07/2023 17:04:33 05/07/20 23 05/07/2023 COMP METAB OLIC PANEL calcium 8.8 mg/dL 8.5-10 .1 Not Available [facility] (Lab Registration) [address], [place], [address], 05/07/2023 17:04:33 05/07/20 23 05/07/2023 COMP METAB OLIC PANEL corrected calcium 8.7 mg/dL 8.5-10 .1 Not Available [facility] (Lab Registration) [address], [place], [address], 05/07/2023 17:04:33 05/07/2005/07/2023 COMP METAB OLIC PANEL bilirubin total 0.4 mg/dL 0.4-1. 5 Not Available [facility] (Lab Registration) [address], [place], [address], 05/07/2023 17:04:33 05/07/2005/07/2023 COMP METAB OLIC PANEL AST (SGOT) 17 U/L 15-37 Not Available [facility] (Lab Registration) [address], [place], [address], 05/07/2023 17:04:33 05/07/2005/07/2023 COMP METAB OLIC PANEL ALT (SGPT) 39 U/L 12-78 Not Available [facility] (Lab Registration) [address] [place], [address], 05/07/2023 17:04:33 05/07/2005/07/2023 COMP METAB OLIC PANEL alk phosphatase 64 U/L Not Available [facility] (Lab Registration) [address] [place], [address], 05/07/2023 17:04:33 05/07/20 23 05/07/2023 COMP METAB OLIC PANEL note Unles s other centeno noted testi ng perfo rmed at: [facility] [address] [place] [address] [phone] Damian perera MD CLIA: [id number] Not Available [facility] (Lab Registration) [address] [place], [address], 05/07/2023 17:04:33 05/19/2005/19/2024 BASIC METAB OLIC PANEL sodium 133 mmol/ L 136-14 5 low Not Available [facility] (Lab Registration) [address] [place], [address], 05/19/2024 17:27:23 05/19/2005/19/2024 BASIC METAB OLIC PANEL potassium 4.6 mmol/ L 3.5-5. 1 Not Available [facility] (Lab Registration) [address] [place], [address], 05/19/2024 17:27:23 05/19/2005/19/2024 BASIC METAB OLIC PANEL chloride 97 mmol/ L 98-107 low Not Available [facility] (Lab Registration) [address] [place], [address], 05/19/2024 17:27:23 05/19/2005/19/2024 BASIC METAB OLIC PANEL carbon dioxide 30 mmol/ L 21-32 Not Available [facility] (Lab Registration) [address] [place], [address], 05/19/2024 17:27:23 05/19/2005/19/2024 BASIC METAB OLIC PANEL anion gap 6.0 Not Available [facility] (Lab Registration) [address] [place], [address], 05/19/2024 17:27:23 05/19/2005/19/2024 BASIC METAB OLIC PANEL glucose 115 mg/dL 70-110 high Not Available [facility] (Lab Registration) [address] [place], [address], 05/19/2024 17:27:23 05/19/2005/19/2024 BASIC METAB OLIC PANEL blood urea nitrogen 19 mg/dL 7-18 high Not Available [facility] (Lab Registration) [address], [place], [address], 05/19/2024 17:27:23 05/19/20 24 05/19/2024 BASIC METAB OLIC PANEL creatinine 1.2 mg/dL 0.8-1. 3 Not Available [facility] (Lab Registration) [address], [place], [address], 05/19/2024 17:27:23 05/19/2005/19/2024 BASIC METAB OLIC PANEL BUN/creatini ne ratio 15.8 9-21 Not Available [facility] (Lab Registration) [address], [place], [address], 05/19/2024 17:27:23 05/19/2005/19/2024 BASIC METAB OLIC PANEL estimated glom filtration rate 64 mL/mi n >60- GFR LIMIT ATION : The eGFR equat ion CKD-E PI 2020 is not appli cable for pedia tric patie nts or great er than 90 years of age. The follo wing condi tions may alter the GFR resul t: extre mes in body size, malnu triti on or obesi ty, skele coy muscl e disea se, parap legia or quadr ipleg ia, veget kassi diet or rapid ly traylor ing kiney funct ion. Not Available [facility] (Lab Registration) [address], [place], [address], 05/19/2024 17:27:23 05/19/2005/19/2024 BASIC METAB OLIC PANEL calcium 9.0 mg/dL 8.5-10 .1 Not Available [facility] (Lab Registration) [address], [place], [address], 05/19/2024 17:27:23 05/19/20 24 05/19/2024 BASIC METAB OLIC PANEL note Unles s other centeno noted testi ng perfo rmed at: [facility] [address] [place] [address] [phone] Damian perera MD CLIA: [id number] Not Available [facility] (Lab Registration) [address] [place], [address], 05/19/2024 17:27:23 05/07/20 23 05/07/2023 XR, chest , 2 view [facility] [place] [address] Phone: Fax: Name: ANGELLA SAUL Exam Date: 2022 : [birth year] Age 72 years Gender : M Access ion: [id number] Physic ivana: SAV CALI Facili ty: [facility] Facili ty HSV: Outpat ient Exam: CHEST PA ^ LAT CHEST, 2 VIEWS HISTOR Y: Chest Pain COMPAR RICK: None FINDIN GS: The heart and medias tinum are unrema rkable . There is elevat ion of the left hemidi aphrag m. There is eviden ce of prior calcif ied granul omatou s diseas e. Chroni c appear ing change s are seen in the lungs. The lungs are otherw ise clear withou t eviden ce of acute infilt rate or effusi on. The bony struct ures are intact . IMPRES STEVIE: No acute proces s. Images review ed, interp reted and dictat ed by Dr. Holliday. Transc ribed by Kalyan Wallace PA-C Dictat ed By: LIZZETTE HOLLIDAY Transc ribed By: LIZZETTE HOLLIDAY Transc ribed On: 2022 11:49 AM Electr onical ly signed by: LIZZETTE HOLLIDAY 2022 Thank you for referr ing ANGELLA SAUL to [facility]. Legall y authen ticate d by POPE LIZZETTE Duggan DO 2022-07 0 11:49: 18 CC'ed Logic: Orderi ng Provid er: LAURA Gonzales CC Provid er: DEMARCO ROACH Attend ing Provid er: LAURA Gonzales Referr ing Provid er: LAURA Gonzales Admitt ing Provid er: LAURA Gonzales [email or web address] [facility] (Radiology) [address] [place], [address], 05/08/2023 16:03:23 05/19/20 24 05/19/2024 XR, chest , 2 view [facility] [place] [address] Phone: Fax: Name: ANGELLA SAUL Exam Date: 2023 : [birth year] Age 73 years Gender : M Access ion: [id number] Physic ivana: SAV CALI Facili ty: [facility] Facili ty HSV: Outpat ient Exam: CHEST PA ^ LAT EXAM DESCRI PTION: CHEST PA ^ LAT CLINIC AL HISTOR Y: 73 years Male, renal ca COMPAR RICK: 2022 FINDIN GS: Redemo nstrat ion of elevat ion left hemidi aphrag m. The cardio medias tinal silhou ette is unrema rkable . Lungs are clear. IMPRES STEVIE: Persis tent elevat ion left hemidi aphrag m. Electr onical ly signed by: Amanda Landaverde MD 2023 11:00 AM EDT RP Workst ation: [id number] Dictat ed By: Amanda Landaverde Transc ribed By: Transc ribed On: 2023 10:53 AM Electr onical ly signed by: Amanda Landaverde 2023 Thank you for referr ANGELLA Rivas to [facility]. Legall y authen ticate d by MICHEAL Ravi III, MD 2023- 10:53: 56 CC'ed Logic: Orderi ng Provid er: LAURA Gonzales CC Provid er: DEMARCO ROACH Attend ing Provid er: LAURA Gonzales Referr ing Provid er: LAURA Gonzales Admitt ing Provid er: LAURA Gonzales [email or web address] [facility] (Radiology) [address] [place], [address], 08/13/2024 15:59:17 Result Notes None recorded. Procedures Surgical History None recorded. Imaging Results Imaging Date Name Status LastModified by Organiz ation Details LastModified Time 05/07/2023 XR, chest, 2 view completed [email or web address] [facility] (Radiology) [address] [place], [address], 05/08/2023 16:03:23 05/19/2024 XR, chest, 2 view completed [email or web address] [facility] (Radiology) [address] [place], [address], 08/13/2024 15:59:17 Procedure Notes None recorded. Medical Equipment None Reported. Allergies Allergen ID Allergen Name Allergen Category Reaction Reaction Severity Criticality Documentation Date Start Date Code Code System Note Provider Name and Address Organization Details Recorded Time 53072 azithromy debora medicatio n Not available Not available Not available 05/02/2023 96116 RxNorm [facility] 15:07:46 Medications Name Sig Start Date Stop Date Status Note LastModified by Organization Details LastModified Time amoxicillin 500 mg capsule TAKE 1 CAPSULE BY MOUTH THREE TIMES DAILY active Not Available Not Available Not Available atorvastatin 20 mg tablet active Not Available Not Available Not Available fluconazole 150 mg tablet TAKE 1 TABLET BY MOUTH ONCE DAILY FOR 10 DAYS active Not Available Not Available No t Available prednisone 20 mg tablet TAKE 2 TABLETS BY MOUTH ONCE DAILY FOR 5 DAYS active Not Available Not Available No t Available amlodipine 2.5 mg tablet active Not Available Not Available Not Available acetaminophe n 300 mg-codeine 30 mg tablet TAKE 1 TABLET BY MOUTH EVERY 6 TO 8 HOURS FOR PAIN active Not Available Not Available No t Available amoxicillin 500 mg tablet TAKE 1 TABLET BY MOUTH THREE TIMES DAILY active Not Available Not Available Not Available nystatin-tri amcinolone 100,000 unit/gram-0. 1 % topical ointment APPLY OINTMENT TOPICALLY TWICE DAILY FOR 15 DAYS active Not Available Not Available Not Available hydrocortiso ne 2.5 % lotion APPLY EXTERNALLY TO AFFECTED AREA THREE TIMES DAILY FOR 14 DAYS active Not Available Not Available Not Available amlodipine 5 mg-benazepri l 20 mg capsule active Not Available Not Available Not Available cephalexin 500 mg capsule TAKE 1 CAPSULE BY MOUTH TWICE DAILY UNTIL GONE active Not Available Not Available No t Available hydrocortiso ne 2.5 % topical cream APPLY CREAM TO AFFECTED AREA ONCE DAILY FOR 7 DAYS active Not Available Not Available No t Available methylpredni solone 4 mg tablets in a dose pack TAKE BY MOUTH DIRECTED ON INSIDE OF PACKAGE active Not Available Not Available No t Available atorvastatin active Not Available Not Available Not Available aspirin active Not Available Not Avail able Not Available amlodipine active Not Available Not Av ailable Not Available coenzyme Q10 active Not Available Not Available Not Available hydrochlorot hiazide 12.5 mg tablet active Not Available Not Available No t Available Vitals Date Recorded Body height Body mass index (BMI) Body weight Body temperature Provider Name and Address Organization Details Last Updated DateTime 05/07/2023 177.8 cm 35.9 kg/m2 451029.09 g 98 [degF] [facility] [place] 05/07/2023 09:38:34 Date Recorded Body height Body mass index (BMI) Body weight Provider Name and Address Organization Details Last Updated DateTime 05/19/2024 177.8 cm 35.9 kg/m2 194861.09 g [facility] [place] 05/19/2024 09:37:19 Social History Question Answer Notes LastModified by Organizat ion Details LastModified Time Tobacco Smoking Status [facility] [place] 05/02/2023 15:09:11 What Is Your Level Of Alcohol Consumption? None [email or web address] Information not available 05/02/2023 Sex: Unknown Functional Status None recorded. Mental Status None recorded. Family History Nothing Reported. Medical History No medical history recorded. Past Encounters Encounter ID Performer Location Encounter Start Date Encounter Closed Date Diagnosis/Indication Diagnosis SNOMED-CT Code Diagnosis ICD10 Code Diagnosis Note [id number] Carson Cali Jr, MD [facility] [address] [address] 05/07/2023 08:49:26 05/07/2023 10:03:28 Renal cell carcinoma 835657745 C64.9 Patient with history of renal cell carcinoma status post left open nephrectom y in February 2018. Surveillan ce labs today. Chest x-ray as well. Nocturia 069066112 R35.1 patient with history of nocturia. He admittedly has some sleep apnea and sleeping issues. We discussed melatonin to help with some sleep. He is not responded to alpha blockers in the past. [id number] Carson Cali Jr, MD [facility] [address] [address] 05/19/2024 09:34:11 05/19/2024 10:07:01 Renal cell carcinoma [id number] C64.9 Patient with history of renal cell carcinoma status post left open nephrectom y in February 2018. Surveillan ce labs today. Chest x-ray as well. Nocturia 918701441 R35.1 patient with history of nocturia. He admittedly has some sleep apnea and sleeping issues. We discussed melatonin to help with some sleep. He is not responded to alpha blockers in the past. Health Concerns Section Related Observation LastModified by Organization Detai ls LastModified Time None Recorded Concern Status LastModified by Organization Details LastModified Time None Recorded Advance Directives Directive None Recorded Payers Encounter Date Sequence Insurance Name Policy Number Policy Child Covered Member ID Child Member ID Guarantor Name 05/07/2023 1 [place] Angella Auguste [id number] Angella Auguste 05/07/2023 2 [employer] (MEDICARE SUPPLEMENT) Angella Auguste [id number] Angella Auguste 05/19/2024 1 [place] Angella Auguste [id number] Angella Auguste 05/19/2024 2 [employer] (MEDICARE SUPPLEMENT) Angella Auguste [id number] Angella Auguste Notes Date Note Type Note Provider Name and Address Organization Details Recorded Time 05/07/2023 text/html Patient is a 72-year-old white male with a history of renal cell carcinoma status post a left open nephrectomy in February 2018 by myself. He was previously seen at [facility] and transferred care to [facility] today. His last visit was April 25, 2022. Previous surveillance studies have indicated a creatinine of 1.2 and normal liver functions. His PSA a year ago was normal at 0.4. Patient continues to have some nocturia at night. He is tried Flomax without help. Admittedly has some sleeping issues. Carson Cali Jr, MD [address] [place] [address], [address], [place], [address], [facility] 05/07/2023 15:19:47 05/19/2024 text/html Patient is a 73-year-old white male with a history of renal cell carcinoma status post left open nephrectomy in February 2018 by myself. Patient has done well postop and then surveillance studies have been normal.Patient also with history of nocturia. He does have some sleep apnea and does adhere to fluid restriction prior to bed with improvement. He still gets up at night 3-4 times however. Carson Cali Jr, MD [address] [facility], [address], [place], [address], [facility] 05/19/2024 12:06:43
[2024-11-06 12:45] VITALS: BP 151/95; PULSE 84; O2SAT 92
--- NOTE | 2024-11-06 12:46 | ED_ITS ---
<Statement entered by Josee Ghosh DO - 11/06/24 14:42> I was consulted by the BEVERLY, and we discussed the complexity of the problems being addressed. I approved the treatment and management plan for this patient's care in the emergency department, thus performing a substantive portion of the medical decision making. Josee Ghosh DO Discharge Plan Disposition Patient Disposition: Home, Self-Care Condition: Good Chief Complaint: PAIN Prescriptions Prescriptions: No Action amlodipine 5 mg tablet 5 mg PO DAILY oxcarbazepine 150 mg tablet 300 mg PO BID Qty: 120 6RF atorvastatin 20 mg tablet 20 mg PO DAILY amlodipine-benazepril 5-20 mg capsule 1 cap PO DAILY aspirin [Aspir-81] 81 mg Tablet,Delayed Release (Dr/Ec) 81 mg PO DAILY hydrochlorothiazide 12.5 mg tablet 12.5 mg PO BID Referrals Follow up/Referrals: Karmne Mehta MD [Primary Care Provider] - See instructions Activity Restrictions/Add. Instructions Additional Instructions/Restrictions: Follow-up with Dr. Holder as ordered If symptoms return or worsen return Clinical Impressions Clinical Impression: Trigeminal neuralgia of left side of face Instructions Patient Instructions: DI for Acute Pain -- Adult Print Language Print Language: Zambian Discharge ED Provider: Josee Ghosh General Adult HPI General Chief complaint: PAIN Stated complaint: Triggered pain in teeth/gums Time Seen by Provider: 11/06/24 12:24 Mode of Arrival: Ambulatory Source of Information: Patient Description of Symptoms (Recalled from ER Triage Doc. by RN): left jaw pain. malcolm holder History of Present Illness HPI narrative: 74-year-old male presents for left toe pain. Patient states he is unable to eat or drink anything since yesterday due to pain. Patient states he has been dealing with trigeminal neuralgia for over 8 months after having his teeth cleaned he has been seen by Dr. Mehta and Dr. Holder and recently had medication change. Patient states every time his blood pressure goes up the pain gets worse. Patient states he sees Dr. Holder on Friday as a follow-up Related Data Home Medications ?Medication ?Instructions ?Recorded ?Confirmed amlodipine 5 mg-benazepril 20 mg 1 cap PO DAILY 06/19/24 11/01/24 capsule atorvastatin 20 mg tablet 20 mg PO DAILY 06/19/24 11/01/24 aspirin 81 mg tablet,delayed 81 mg PO DAILY 09/13/24 11/01/24 release amlodipine 5 mg tablet 5 mg PO DAILY 11/01/24 11/01/24 hydrochlorothiazide 12.5 mg tablet 12.5 mg PO BID 11/01/24 11/01/24 Previous Rx's ?Medication ?Instructions ?Recorded oxcarbazepine 150 mg tablet 300 mg (2 x 150 mg) PO BID 11/04/24 Trigeminal neuralgia #120 tabs Allergies Allergy/AdvReac Type Severity Reaction Status Date / Time azithromycin (From ZITHROMAX) Allergy Mild Other Verified 11/01/24 08:29 [facility] Disclaimer: The information contained in this section may have been updated after the patient was seen, as this information can be updated by other users. Medical History , [employer]) Facial pain History of ulcer disease History of neck pain History of varicose veins of lower extremity History of hyperlipidemia Trigeminal neuralgia of left side of face History of hypertension Nocturia Renal cell cancer Surgical History , [employer] G[employer]) History of nephrectomy, left Family History , [employer]) Coronary artery disease Emphysema of lung Cancer Social History , [employer]) Smoking Status: Never smoker smoking status stop date: 2015 alcohol intake: never substance use type: denies use current occupational status: retired Travel in the last 8 weeks: None household members: spouse housing: house marital status: number of children: 3 Have you lived/traveled outside US in past 30 days?: No Contact w/someone who lives/traveled outside US past 30 days?: No Exposure to someone with infectious disease in past 14 days?: No Do you have a fever (greater than 100.4 F or 38 C)?: No Have you tested positive for COVID-19: No Exposed to someone with COVID-19 in past 14 days?: No Do you have a sore throat?: No Do you have a cough?: No Do you have any weakness?: No Do you have any diarrhea?: No Are you experiencing any unusual bleeding?: No Do you have any muscle aches/pain?: No Do you have any abdominal pain?: No Are you experiencing loss of taste or smell?: No Other Medical History Have you received the Flu Vaccine for this season: Yes Have you received the Pneumonia Vaccine: No ROS Obtained: Yes Systems reviewed as appropriate & no additional complaints except as documented Constitutional Constitutional: Reports system reviewed and no additional complaints, except as documented and Reports as per HPI ENT Ears, Nose, Mouth, and Throat: Reports system reviewed and no additional complaints, except as documented, Reports as per HPI and Reports other (jaw elly n) Neurologic Neurologic: Reports system reviewed and no additional complaints, except as documented and Reports as per HPI Physical Exam General General appearance: alert and in no apparent distress Eye Eye exam: Present normal appearance and PERRL ENT ENT exam: Present normal exam, normal oropharynx, mucous membranes moist and TM's normal bilaterally Respiratory Respiratory exam: Present normal lung sounds bilaterally Cardiovascular Cardiovascular exam: Present regular rate and normal rhythm Neurological Exam Neurological exam: Present alert, oriented X3 and CN II-XII intact Skin Skin exam: Present warm and intact Medical Decision Making Medical Records Medical records reviewed: Yes I reviewed the patient's medical records. Screening: Per USPSTF and CDC recommendations, given the prevalence of disease in our region, it is our hospital?s policy to screen for HIV and viral Hepatitis for all patients aged 18 and over and those with ongoing risk factors. Onel Inquiry Pt receiving controlled substance: No Onel was queried for this patient: No Vital Signs: 11/06/24 12:24 11/06/24 12:27 11/06/24 12:30 Temperature 97.6 F Temperature Source Oral Pulse Rate 89 87 Pulse Rate [Right] 90 Respiratory Rate 18 Blood Pressure 154/104 H 167/106 H Blood Pressure [Right Arm] 154/104 H Blood Pressure Mean 120 115 Blood Pressure Mean [Right Arm] 120 02 Sat by Pulse Oximetry 91 L 95 95 Oxygen Delivery Method Room Air 11/06/24 12:45 11/06/24 13:00 Temperature Temperature Source Pulse Rate 84 91 H Pulse Rate [Right] Respiratory Rate Blood Pressure 151/95 H 144/93 H Blood Pressure [Right Arm] Blood Pressure Mean Blood Pressure Mean [Right Arm] 02 Sat by Pulse Oximetry 92 L 93 L Oxygen Delivery Method Room Air Room Air Orders (Tests/Meds): ED MEDICATIONS Discontinued Medications Generic Name Dose Route Start Last Admin Trade Name Ismael PRN Reason Stop Dose Admin Acetaminophen 500 mg 11/06/24 12:40 11/06/24 12:53 Acetaminophen 500mg Tab PO 11/06/24 12:41 500 mg ONCE ONE Administration Baclofen 10 mg 11/06/24 12:40 11/06/24 12:53 Baclofen 10mg Tablet PO 11/06/24 12:41 10 mg ONCE ONE Administration Dexamethasone 10 mg 11/06/24 12:40 11/06/24 12:53 Dexamethasone 4mg Tablet PO 11/06/24 12:41 10 mg ONCE ONE Administration ORDERS Category Date Time Status HIV Combo Stat Lab 11/06/24 12:30 Ordered Hepatitis C Ab Qual. W/ RFX Stat Lab 11/06/24 12:30 Ordered Medical Decision Narrative: In summary patient is a 74-year-old male who presents to the emergency department for evaluation of jaw pain. Patient is hemodynamically stable upon arrival, afebrile. Unremarkable physical exam. Differential diagnosis includes trigeminal neuralgia. Initial workup will be conducted with meds such as baclofen 10 mg, dexamethasone 10 mg, Tylenol 500 mg. Initial inventions include meds. Upon repeat evaluation patient was able to eat crackers and peanut butter and drink 2 bottles of water without pain. Given this patient be appropriate for discharge at this time with close follow-up with PCP and Dr. Cespedes on Friday Critical Care Critical Care Time Critical Care Time: No
[2024-11-06] MEDS: DEXAMETHASONE 4MG TABLET 10 MG PO (12:53)
[2024-11-06] MEDS: BACLOFEN 10MG TABLET 10 MG PO (12:53)
[2024-11-06] MEDS: ACETAMINOPHEN 500MG TAB 500 MG PO (12:53)
[2024-11-06 13:00] VITALS: BP 144/93; PULSE 91; O2SAT 93
[2024-11-06 13:36] VITALS: BP 140/91; PULSE 84; RESP 16; TEMP 36.4; O2SAT 96
== END 2024-11-06 13:38 | disposition home or self-care (01) ==
PROVIDERS: Emergency Provider Emergency Medicine; PCP Family Medicine
DX: G50.0 Trigeminal neuralgia (principal); R68.84 Jaw pain
CPT/HCPCS: 99283; J8540

== ENCOUNTER 2024-11-08 08:14 | Outpatient (CLI) | payer MEDICARE, OTHER, SELFPAY ==
--- OUTSIDE RECORDS SUMMARY | 2024-11-08 08:17 | XMS_ITS | Data Portability ---
Author Organization [facility] Address [address] [place] [address] Assessment No assessment recorded. Plan of Treatment Reminders Order Date Submit Date Provider Last Modified By Organization Details Last Modified Time Details Appointments OV EST 15 2024 09:45A M Carson Cali Jr, MD Not available Not available Not available Lab BMP, blood 2023 024 [email or web address] [facility] (Laboratory), [address] [place], [address], 05/26/2024 07:24:28 PSA, serum or plasma 2023 024 [facility] (Laboratory), [place], [address], 05/19/2024 17:26:16 hepatic function panel, serum 2023 024 [facility] (Laboratory), [place], [address], 05/19/2024 17:27:28 CMP, serum or plasma [address] (Laboratory), [place], [address], 05/08/2023 10:51:26 Referral None recorded. Procedures None recorded. Surgeries None recorded. Imaging XR, chest, 2 view [address] [facility], [address] [place] [address] [place], [address], 05/19/2024 14:11:58 XR, chest, 2 view 2022 023 [email or web address] [facility] (Radiology), [address], [place], [address], 05/08/2023 10:51:26 Medication Orders None recorded. Patient TargetsNo targets recorded. Patient InstructionsNo instructions recorded. Reason for Referral None Reported. Results Created Date Observation Date Name Description Value Unit Range Abnormal Flag Note LastModifiedBy Organization Detail LastModifiedTime 05/07/2005/07/2023 COMP METAB OLIC PANEL sodium 136 mmol/ L 136-14 5 Not Available [facility] (Lab Registration) [address], [place], [address], 05/07/2023 17:04:33 05/07/2005/07/2023 COMP METAB OLIC PANEL potassium 5.0 mmol/ L 3.5-5. 1 Not Available [facility] (Lab Registration) [address], [place], [address], 05/07/2023 17:04:33 05/07/2005/07/2023 COMP METAB OLIC PANEL chloride 99 mmol/ L 98-107 Not Available [facility] (Lab Registration) [address] [place], [address], 05/07/2023 17:04:33 05/07/2005/07/2023 COMP METAB OLIC PANEL carbon dioxide 29 mmol/ L 21-32 Not Available [facility] (Lab Registration) [address] [place], [address], 05/07/2023 17:04:33 05/07/2005/07/2023 COMP METAB OLIC PANEL anion gap 8.0 Not Available [facility] (Lab Registration) [address] [place], [address], 05/07/2023 17:04:33 10/11/20 23 05/07/2023 COMP METAB OLIC PANEL glucose 110 mg/dL 70-110 Not Available [facility] (Lab Registration) [address] [place], [address], 05/07/2023 17:04:33 05/07/20 23 05/07/2023 COMP METAB OLIC PANEL blood urea nitrogen 18 mg/dL 7-18 Not Available [facility] (Lab Registration) [address] [place], [address], 05/07/2023 17:04:33 05/07/20 23 05/07/2023 COMP METAB OLIC PANEL creatinine 1.1 mg/dL 0.8-1. 3 Not Available [facility] (Lab Registration) [address] [place], [address], 05/07/2023 17:04:33 05/07/20 23 05/07/2023 COMP METAB OLIC PANEL BUN/creatini ne ratio 16.4 ratio 9-21 Not Available [facility] (Lab Registration) [address] [place], [address], 05/07/2023 17:04:33 05/07/2005/07/2023 COMP METAB OLIC PANEL estimated glom filtration rate 70 mL/mi n >60- Not Available [facility] (Lab Registration) [address] [place], [address], 05/07/2023 17:04:33 05/07/20 23 05/07/2023 COMP METAB OLIC PANEL total protein 7.5 g/dL 6.4-8. 2 Not Available [facility] (Lab Registration) [address] [place], [address], 05/07/2023 17:04:33 05/07/20 23 05/07/2023 COMP METAB OLIC PANEL albumin 4.1 g/dL 3.4-5. 0 Not Available [facility] (Lab Registration) [address] [place], [address], 05/07/2023 17:04:33 05/07/20 23 05/07/2023 COMP METAB OLIC PANEL calcium 8.8 mg/dL 8.5-10 .1 Not Available [facility] (Lab Registration) [address], [place], [address], 05/07/2023 17:04:33 05/07/20 23 05/07/2023 COMP METAB OLIC PANEL corrected calcium 8.7 mg/dL 8.5-10 .1 Not Available [facility] (Lab Registration) [address], [place], [address], 05/07/2023 17:04:33 05/07/2005/07/2023 COMP METAB OLIC PANEL bilirubin total 0.4 mg/dL 0.4-1. 5 Not Available [facility] (Lab Registration) [address], [place], [address], 05/07/2023 17:04:33 05/07/2005/07/2023 COMP METAB OLIC PANEL AST (SGOT) 17 U/L 15-37 Not Available [facility] (Lab Registration) [address], [place], [address], 05/07/2023 17:04:33 05/07/2005/07/2023 COMP METAB OLIC PANEL ALT (SGPT) 39 U/L 12-78 Not Available [facility] (Lab Registration) [address] [place], [address], 05/07/2023 17:04:33 05/07/2005/07/2023 COMP METAB OLIC PANEL alk phosphatase 64 U/L Not Available [facility] (Lab Registration) [address] [place], [address], 05/07/2023 17:04:33 05/07/20 23 05/07/2023 COMP METAB OLIC PANEL note Unles s other centeno noted testi ng perfo rmed at: [facility] [address] [place] [address] [phone] Damian perera MD CLIA: [id number] Not Available [facility] (Lab Registration) [address] [place], [address], 05/07/2023 17:04:33 05/19/2005/19/2024 BASIC METAB OLIC PANEL sodium 133 mmol/ L 136-14 5 low Not Available [facility] (Lab Registration) [address] [place], [address], 05/19/2024 17:27:23 05/19/2005/19/2024 BASIC METAB OLIC PANEL potassium 4.6 mmol/ L 3.5-5. 1 Not Available [facility] (Lab Registration) [address] [place], [address], 05/19/2024 17:27:23 05/19/2005/19/2024 BASIC METAB OLIC PANEL chloride 97 mmol/ L 98-107 low Not Available [facility] (Lab Registration) [address] [place], [address], 05/19/2024 17:27:23 05/19/2005/19/2024 BASIC METAB OLIC PANEL carbon dioxide 30 mmol/ L 21-32 Not Available [facility] (Lab Registration) [address] [place], [address], 05/19/2024 17:27:23 05/19/2005/19/2024 BASIC METAB OLIC PANEL anion gap 6.0 Not Available [facility] (Lab Registration) [address] [place], [address], 05/19/2024 17:27:23 05/19/2005/19/2024 BASIC METAB OLIC PANEL glucose 115 mg/dL 70-110 high Not Available [facility] (Lab Registration) [address] [place], [address], 05/19/2024 17:27:23 05/19/2005/19/2024 BASIC METAB OLIC PANEL blood urea nitrogen 19 mg/dL 7-18 high Not Available [facility] (Lab Registration) [address], [place], [address], 05/19/2024 17:27:23 05/19/20 24 05/19/2024 BASIC METAB OLIC PANEL creatinine 1.2 mg/dL 0.8-1. 3 Not Available [facility] (Lab Registration) [address], [place], [address], 05/19/2024 17:27:23 05/19/2005/19/2024 BASIC METAB OLIC PANEL BUN/creatini ne ratio 15.8 9-21 Not Available [facility] (Lab Registration) [address], [place], [address], 05/19/2024 17:27:23 05/19/2005/19/2024 BASIC METAB OLIC PANEL [...] traylor ing kiney funct ion. Not Available [facility] (Lab Registration) [address], [place], [address], 05/19/2024 17:27:23 05/19/2005/19/2024 BASIC METAB OLIC PANEL calcium 9.0 mg/dL 8.5-10 .1 Not Available [facility] (Lab Registration) [address], [place], [address], 05/19/2024 17:27:23 05/19/20 24 05/19/2024 BASIC METAB OLIC PANEL note Unles s other centeno noted testi ng perfo rmed at: [facility] [address] [place] [address] [phone] Damian perera MD CLIA: [id number] Not Available [facility] (Lab Registration) [address] [place], [address], 05/19/2024 17:27:23 05/07/20 23 05/07/2023 XR, chest , 2 view [facility] 9 [facility] [place] [address] Phone: Fax: Name: ANGELLA SAUL Exam Date: 2022 : [birth year] Age 72 years Gender : M Access ion: [id number] Physic ivana: SAV CALI Facili ty: [facility] Facili ty HSV: Outpat ient Exam: CHEST [...] you for referr ing ANGELLA SAUL to [facility]. Legall y authen ticate d by POPE LIZZETTE Duggan DO 2022-07 0 11:49: 18 CC'ed Logic: Orderi ng Provid er: LAURA Gonzales CC Provid er: DEMARCO ROACH Attend ing Provid er: LAURA Gonzales Referr ing Provid er: LAURA Gonzales Admitt ing Provid er: LAURA Gonzales [email or web address] [facility] (Radiology) [address] [place], [address], 05/08/2023 16:03:23 05/19/20 24 05/19/2024 XR, chest , 2 view [facility] [place] [address] Phone: Fax: Name: ANGELLA SAUL Exam Date: 2023 : [birth year] Age 73 years Gender : M Access ion: [id number] Physic ivana: SAV CALI Facili ty: [facility] Facili ty HSV: Outpat ient Exam: CHEST [...] Thank you for referr ANGELLA Rivas to [facility]. Legall y authen ticate d by MICHEAL Ravi III, MD 2023- 10:53: 56 CC'ed Logic: Orderi ng Provid er: LAURA Gonzales CC Provid er: DEMARCO ROACH Attend ing Provid er: LAURA Gonzales Referr ing Provid er: LAURA Gonzales Admitt ing Provid er: LAURA Gonzales [facility] (Radiology) [address] [place], [address], 08/13/2024 15:59:17 Result Notes None recorded. Procedures Surgical History None recorded. Imaging Results Imaging Date Name Status LastModified by Organiz ation Details LastModified Time 05/07/2023 XR, chest, 2 view completed [email or web address] [facility] (Radiology) [address] [place], [address], 05/08/2023 16:03:23 05/19/2024 XR, chest, 2 view completed [facility] (Radiology) [address] [place], [address], 08/13/2024 15:59:17 Procedure Notes None recorded. Medical Equipment None Reported. Allergies Allergen ID Allergen Name Allergen Category Reaction Reaction Severity Criticality Documentation Date Start Date Code Code System Note Provider Name and Address Organization Details Recorded Time 55902 azithromy debora medicatio n Not available Not available Not available 05/02/2023 [id number] [facility] 15:07:46 Medications Name Sig Start Date Stop [...] Updated DateTime 05/07/2023 177.8 cm 35.9 kg/m2 121446.09 g 98 [degF] [facility] [place] 05/07/2023 09:38:34 Date Recorded Body height Body mass index (BMI) Body weight Provider Name and Address Organization Details Last Updated DateTime 05/19/2024 177.8 cm 35.9 kg/m2 422367.09 g [facility] [place] 05/19/2024 09:37:19 Social History Question Answer Notes LastModified by Organizat ion Details LastModified Time Tobacco Smoking Status Former Smoker [email or web address] [place] 05/02/2023 15:09:11 What Is Your Level Of Alcohol Consumption? None [email or web address] Information not available 05/02/2023 Sex: Unknown Functional Status None recorded. Mental Status None recorded. Family History Nothing Reported. Medical History No medical history recorded. Past Encounters Encounter ID Performer Location Encounter Start Date Encounter Closed Date Diagnosis/Indication Diagnosis SNOMED-CT Code Diagnosis ICD10 Code Diagnosis Note [id number] Carson Cali Jr, MD [facility] [address] [address] 05/07/2023 08:49:26 05/07/2023 10:03:28 Renal cell carcinoma 966721546 C64.9 Patient with history of renal cell carcinoma status post left open nephrectom y in February 2018. Surveillan ce labs today. Chest x-ray as well. Nocturia 679778004 R35.1 patient with history of nocturia. He admittedly has some sleep apnea and sleeping issues. We discussed melatonin to help with some sleep. He is not responded to alpha blockers in the past. [id number] Carson Cali Jr, MD [facility] [address] [address] 05/19/2024 09:34:11 05/19/2024 10:07:01 Renal cell carcinoma [id number] C64.9 Patient with history of renal cell carcinoma status post left open nephrectom y in February 2018. Surveillan ce labs today. Chest x-ray as well. Nocturia [id number] R35.1 patient with history of nocturia. He [...] Name 05/07/2023 1 [place] Angella Auguste [id number] Angella Auguste 05/07/2023 2 [employer]IONS (MEDICARE SUPPLEMENT) Angella Auguste [id number] Angella Auguste 05/19/2024 1 [place] Angella Auguste [id number] Angella Auguste 05/19/2024 2 [employer] (MEDICARE SUPPLEMENT) Angella Auguste [id number] Angella Auguste Notes Date Note Type Note Provider Name and Address Organization Details Recorded Time 05/07/2023 text/html Patient is a 72-year-old white male with a history of renal cell carcinoma status post a left open nephrectomy in February 2018 by myself. He was previously seen at [facility] and transferred care to [facility] today. His last visit was April 25, 2022. Previous surveillance studies have indicated a creatinine of 1.2 and normal liver functions. His PSA a year ago was normal at 0.4. Patient continues to have some nocturia at night. He is tried Flomax without help. Admittedly has some sleeping issues. Carson Cali Jr, MD [address] [place] [address], [address], [address], [facility] 05/07/2023 15:19:47 05/19/2024 text/html Patient is a [...] times however. Carson Cali Jr, MD [address] [facility], [address], [place], [address], [facility] 05/19/2024 12:06:43
[2024-11-08 08:45] LABS: Albumin Level 4.5 g/dl (3.5-5.0); Chloride 91 mmol/L (98-107)
[2024-11-08 08:46] LABS: Potassium 4.3 mmoL/L (3.5-5.1); Sodium 128 mmol/L (136-145)
[2024-11-08 08:48] LABS: Alanine Aminotransferase 36 U/L (12-78); Anion Gap 16.3 mEq/L (5-15); Aspartate Amino Transferase 26 U/L (17-59); Blood Urea Nitrogen 19 mg/dl (9-20); Carbon Dioxide 25 mmol/L (22.0-30.0); Estimated Glomerular Filt Rate 73 ml/min (>60); GFR (African American) 89 ML/MIN (>60)
[2024-11-08 08:49] LABS: Albumin/Globulin Ratio 1.5 (1.1-1.8); Alkaline Phosphatase 57 U/L (38-126); Bilirubin,Total 0.4 mg/dl (0.2-1.3); Glucose 138 mg/dl (74-100); Total Protein,Serum 7.5 g/dl (6.3-8.2)
== END 2024-11-08 23:59 | disposition home or self-care (01) ==
LOC: LAB 08:15
PROVIDERS: PCP Family Medicine; Visit Provider Specialist
DX: G50.0 Trigeminal neuralgia (principal); I10 Essential (primary) hypertension; Z85.528 Personal history of other malignant neoplasm of kidney
CPT/HCPCS: 36415; 80053

== ENCOUNTER 2024-11-08 13:50 | Outpatient (POV) | payer MEDICARE, OTHER, SELFPAY ==
--- NOTE | 2024-11-08 13:58 | EXP.PAIN.OV ---
HPI Data of Consult Patient: new to practice Consult date: 11/08/24 Requesting Physician: Josee Siddiqi APRN Primary Care Provider: Karmen Mehta MD Consult Narrative Reason for consult: Facial pain, teeth pain, jaw pain History of present illness: Mr. Auguste is a 74 year old male who presents today as a new patient. He is a referral from Dr. Kilpatrick. Today he rates his pain a 9 out of 10. Patient states all of this started around 8 months ago when he went to his dentist office for regular cleaning. He states that he felt overall fine but about 2 to 3 days later he was brushing his teeth along the left side and that hit his back tooth and it went nuts . He states that ever since then it is progressively worsened overall. He states that he ended up going back to his dentist who ended up sending him to an logistics operations director in [place] and never came up with anything that could explain the worsening symptoms. Patient has been seeing neurology and did try multiple medications including [id number] Tylenol, multiple muscle relaxers such as baclofen, antiseizure medications. He states that has been the last changed that they changed 1 of those medications to the oxcarbazepine due to low sodium. Patient does state that the pain does interfere with his ability to perform activities of daily living such as cooking or cleaning or even stop the simplest activity. He states it is an intense shooting sensation like to lightning bolts . He states the pain is always on the left side and goes from the back lower teeth most frequently to the upper back teeth. He states that previously it would be that if he touched his lip or certain spots along his face that it would just cause immediate sensations into that left side however over time he states that he ended up feeling like it had gone into almost like remission and got about 2 months of improvement before it started coming back. Patient states now all that it has returned it is not as sensitive to touching outer areas of his lip or cheek but is still very much present with certain activities such as eating food or drinking something called or brushing teeth. Patient denies any popping or clicking of his jaw or any pain there around his specific job more so his teeth. Patient does feel like it is a nervelike sensation. He states that even drinking fluid on that side will bring it about. He also states he has noticed anytime his blood pressure is elevated that it immediately starts the sensations. He states once he has the sensations even talking is very painful. Patient does also make mention that he has a lot going on and was just recently diagnosed with diabetes as well as possible sleep apnea. He states he is waiting to hear back on that and does have a senior mechanical designer appointment the . Patient does also make mention that he only has 1 kidney and that he has to be very mindful of his medications. Patient is interested in any help we may be able to provide. Patient denies any prior injection history.Patient is not on any current scheduled medications. His Onel has been reviewed. CC: Josee Siddiqi APRN [facility] Disclaimer: The information contained in this section may have been updated after the patient was seen, as this information can be updated by other users. Medical History Facial pain History of ulcer disease History of neck pain History of varicose veins of lower extremity History of hyperlipidemia Trigeminal neuralgia of left side of face Left trigeminal neuralgia. Currently asymptomatic on carbamazepine 200 mg twice daily but evidence of hyponatremia, (129, currently asymptomatic), on hydrochlorothiazide 12.5, 2/3 times daily). History of hypertension Nocturia Renal cell cancer Surgical History History of nephrectomy, left Family History Other Cancer Coronary artery disease Emphysema of lung Social History (Updated 11/08/24 @ 15:30 by Axia Martin RN) Smoking Status: Never smoker smoking status stop date: 2015 alcohol intake: never substance use type: denies use current occupational status: retired Travel in the last 8 weeks: None household members: spouse housing: house marital status: number of children: 3 Contact w/someone who lives/traveled outside US past 30 days?: No Exposure to someone with infectious disease in past 14 days?: No Do you have a fever (greater than 100.4 F or 38 C)?: No Have you tested positive for COVID-19: No Exposed to someone with COVID-19 in past 14 days?: No Do you have a sore throat?: No Do you have a cough?: No Do you have any weakness?: No Are you experiencing any nausea/vomitting?: No Do you have any diarrhea?: No Are you experiencing any unusual bleeding?: No Do you have any muscle aches/pain?: No Do you have any abdominal pain?: No Are you experiencing loss of taste or smell?: No Review of Systems Review of Systems Review of systems:: pertinent systems reviewed and negative unless documented below Review of systems (narrative): Review of Systems: General: No recent weight changes, no fever, no sleep disturbances Respiratory: No cough, no shortness of air, no recurring pulmonary infections Cardiovascular/peripheral vascular: No chest pain, no palpitations, no edema, no shortness of breath Gastrointestinal: No new onset incontinence, normal bowel movements reported Genitourinary: No new onset incontinence Musculoskeletal: Left-sided facial pain/teeth pain Psychiatric: [Normal mood/affect] Neurological: [Denies weakness in extremities], [denies balance issues] Meds Home Medications and Allergies Home Medications ?Medication ?Instructions ?Recorded ?Confirmed ?Type amlodipine 5 mg-benazepril 20 mg 1 cap PO DAILY 06/19/24 11/08/24 History capsule atorvastatin 20 mg tablet 20 mg PO DAILY 06/19/24 11/08/24 History aspirin 81 mg tablet,delayed 81 mg PO DAILY 09/13/24 11/08/24 History release amlodipine 5 mg tablet 5 mg PO DAILY 11/01/24 11/08/24 History hydrochlorothiazide 12.5 mg tablet 12.5 mg PO BID 11/01/24 11/08/24 History oxcarbazepine 150 mg tablet 300 mg (2 x 150 mg) PO BID 11/04/24 11/08/24 Rx Trigeminal neuralgia #120 tabs baclofen 10 mg tablet 20 mg (2 x 10 mg) PO HS Trigeminal 11/08/24 11/08/24 Rx Neuralgia #60 tabs New Prescriptions to Start Prescriptions: Allergies Allergy/AdvReac Type Severity Reaction Status Date / Time azithromycin (From ZITHROMAX) Allergy Mild Other Verified 11/08/24 11:54 Objective Narrative: Physical Exam: General: Alert and oriented x3, no acute distress, pleasant and cooperative Lungs: Respirations even and unlabored, symmetrical chest expansion Eyes: PERRL Musculoskeletal: Flexion and extension of cervical [spine] within normal limits Neurological: Speech clear, no gross sensory deficit Assessment and Plan *Assessment and plan (1) Trigeminal neuralgia: Status: Chronic Category: Medical Code(s): G50.0 - Trigeminal neuralgia (2) Facial pain: Status: Acute Category: Medical Code(s): R51.9 - Headache, unspecified Plan I did review over multiple possible interventions that we could try here in our office. Patient denied any issues with popping or clicking of his jaw or symptoms consistent with TMJ dysfunction. I did discuss with the patient that it does seem that it is nerve related and the diagnosis of trigeminal neuralgia that was discussed with Dr. Kilpatrick's office is consistent with his symptoms. I did discuss with the patient that we have done trigeminal nerve blocks in the past and that he may be a beneficial candidate regarding this. Risk and benefits were discussed with patient and he would like to proceed forward with this plan of care. I did retirement plan counselor the patient the risk and benefits of steroid injection and that we would check his sugar before proceeding forward with this injection. Patient does state that it is staying within overall a good range of around 230. Patient was counseled that if it is closer to 300 on the day of this procedure that we would reschedule him. Patient acknowledges understanding and agrees with plan of care. Patient has had this pain for approximately 8 months unrelieved with conservative therapy including oral medications, heat and ice, topicals and continued at home exercising and stretching for longer than 12 weeks. Patient has been seen by a dentist, logistics operations director and neurologist with no additional options that have provided long-term relief. Patient will be scheduled for left trigeminal nerve block with Dr. Ndiaye. This will be done without fluoroscopic guidance. Patient has been instructed to contact the clinic with any concerns before the next appointment. Dr. Ndiaye has reviewed this note and agrees with this plan of care. This note was dictated using voice recognition software and make contain errors or omissions. All injections are used with Lidocaine, Bupivacaine and Depo Medrol. Occasionally urine drug screen is needed to verify patient's compliance with our office pain contract. This is ordered based off specific treatments related to chronic pain with the potential to abuse certain medications.
[2024-11-08 15:24] VITALS: BP 138/87; PULSE 86; RESP 18; O2SAT 95; BMI 37.0
== END 2024-11-08 23:59 | disposition home or self-care (01) ==
LOC: SC.PAIN 13:52
PROVIDERS: PCP Family Medicine; Visit Provider Nurse Practitioner Family
DX: G50.0 Trigeminal neuralgia (principal); R51.9 Headache, unspecified; Z73.89 Other problems related to life management difficulty
CPT/HCPCS: 99202; G0463

== ENCOUNTER 2024-11-12 14:45 | Day surgery (SDC) | payer MEDICARE, OTHER, SELFPAY ==
[2024-11-12 15:07] VITALS: BP 138/84; PULSE 102; RESP 16; TEMP 36.9; O2SAT 100; BMI 35.3
[2024-11-12] MEDS: LIDOCAINE 1% 5ML PF VIAL 5 ML (15:52)
[2024-11-12] MEDS: methylPREDNISolone ACETATE 80MG/ML VIAL 80 MG (15:52)
[2024-11-12] MEDS: BUPIVACAINE 0.25% 10ML INJ 25 MG IJ (15:52)
[2024-11-12 15:53] VITALS: BP 121/62; PULSE 103; RESP 18; O2SAT 98
[2024-11-12 15:54] VITALS: BP 121/62; PULSE 103; RESP 18; O2SAT 98
[2024-11-12 16:01] VITALS: BP 117/73; PULSE 101; RESP 16; O2SAT 99
--- NOTE | 2024-11-12 16:49 | P.PCN_ITS ---
Procedure Date: 11/12/24 Time: 16:49 Anesthesiologist:: Fercho Ndiaye MD Complications:: None Pre-procedure Diagnosis:: Trigeminal neuralgia Post-procedure Diagnosis:: Same Indications for Procedure:: The patient is a pleasant 74-year-old white male who we are treating for left- sided trigeminal neuralgia. Patient presents for left-sided trigeminal nerve block today. Procedure Details:: Informed consent was obtained risk and benefits of the procedure were explained to the patient. The patient was taken to the procedure room. The area in front of the left tragus was prepped using alcohol preps. A 25-gauge needle was inserted and advanced until it contacted the pterygoid plate on the left side. We injected 3 mL lidocaine 1% and Depo-Medrol 40 mg into the area of the left trigeminal ganglia. The patient tolerated the procedure well with no complications. Plan and Disposition:: Will follow-up with this patient in 2 weeks to assess efficacy of this injection. Will reevaluate symptoms at that time.
== END 2024-11-12 16:01 | disposition home or self-care (01) ==
LOC: SC.PAINP 14:46
PROVIDERS: PCP Family Medicine; Visit Provider Anesthesiology
DX: G50.0 Trigeminal neuralgia (principal)
CPT/HCPCS: 64400; J1010

== ENCOUNTER 2024-11-25 06:43 | Outpatient (CLI) | payer MEDICARE, OTHER, SELFPAY ==
--- OUTSIDE RECORDS SUMMARY | 2024-11-25 06:47 | XMS_ITS | Data Portability ---
Author Organization [facility] Medicine and [facility] [place] Address [address] [place] [address] Assessment No assessment recorded. Plan of Treatment Reminders Order Date Submit Date Provider Last Modified By Organization Details Last Modified Time Details Appointments OV EST 15 2024 09:45A M Carson Cali Jr, MD Not available Not available Not available Lab BMP, blood 2023 024 [email or web address] [facility] (Laboratory), [address] [place], [address], 05/26/2024 07:24:28 PSA, serum or plasma 2023 024 [facility] (Laboratory), [place], [address], 05/19/2024 17:26:16 hepatic function panel, serum 2023 024 [facility] (Laboratory), [place], [address], 05/19/2024 17:27:28 CMP, serum or plasma [address] (Laboratory), [place], [address], 05/08/2023 10:51:26 Referral None recorded. Procedures None recorded. Surgeries None recorded. Imaging XR, chest, 2 view [address] [facility], [address] [place] [address] [place], [address], 05/19/2024 14:11:58 XR, chest, 2 view 2022 023 [email or web address] [facility] (Radiology), [address], [place], [address], 05/08/2023 10:51:26 Medication Orders None recorded. Patient TargetsNo targets recorded. Patient InstructionsNo instructions recorded. Reason for Referral None Reported. Results Created Date Observation Date Name Description Value Unit Range Abnormal Flag Note LastModifiedBy Organization Detail LastModifiedTime 05/07/2005/07/2023 COMP METAB OLIC PANEL sodium 136 mmol/ L 136-14 5 Not Available [facility] (Lab Registration) [address], [place], [address], 05/07/2023 17:04:33 05/07/2005/07/2023 COMP METAB OLIC PANEL potassium 5.0 mmol/ L 3.5-5. 1 Not Available [facility] (Lab Registration) [address], [place], [address], 05/07/2023 17:04:33 05/07/2005/07/2023 COMP METAB OLIC PANEL chloride 99 mmol/ L 98-107 Not Available [facility] (Lab Registration) [address] [place], [address], 05/07/2023 17:04:33 05/07/2005/07/2023 COMP METAB OLIC PANEL carbon dioxide 29 mmol/ L 21-32 Not Available [facility] (Lab Registration) [address] [place], [address], 05/07/2023 17:04:33 05/07/2005/07/2023 COMP METAB OLIC PANEL anion gap 8.0 Not Available [facility] (Lab Registration) [address] [place], [address], 05/07/2023 17:04:33 10/11/20 23 05/07/2023 COMP METAB OLIC PANEL glucose 110 mg/dL 70-110 Not Available [facility] (Lab Registration) [address] [place], [address], 05/07/2023 17:04:33 05/07/20 23 05/07/2023 COMP METAB OLIC PANEL blood urea nitrogen 18 mg/dL 7-18 Not Available [facility] (Lab Registration) [address] [place], [address], 05/07/2023 17:04:33 05/07/20 23 05/07/2023 COMP METAB OLIC PANEL creatinine 1.1 mg/dL 0.8-1. 3 Not Available [facility] (Lab Registration) [address] [place], [address], 05/07/2023 17:04:33 05/07/20 23 05/07/2023 COMP METAB OLIC PANEL BUN/creatini ne ratio 16.4 ratio 9-21 Not Available [facility] (Lab Registration) [address] [place], [address], 05/07/2023 17:04:33 05/07/2005/07/2023 COMP METAB OLIC PANEL estimated glom filtration rate 70 mL/mi n >60- Not Available [facility] (Lab Registration) [address] [place], [address], 05/07/2023 17:04:33 05/07/20 23 05/07/2023 COMP METAB OLIC PANEL total protein 7.5 g/dL 6.4-8. 2 Not Available [facility] (Lab Registration) [address] [place], [address], 05/07/2023 17:04:33 05/07/20 23 05/07/2023 COMP METAB OLIC PANEL albumin 4.1 g/dL 3.4-5. 0 Not Available [facility] (Lab Registration) [address] [place], [address], 05/07/2023 17:04:33 05/07/20 23 05/07/2023 COMP METAB OLIC PANEL calcium 8.8 mg/dL 8.5-10 .1 Not Available [facility] (Lab Registration) [address], [place], [address], 05/07/2023 17:04:33 05/07/20 23 05/07/2023 COMP METAB OLIC PANEL corrected calcium 8.7 mg/dL 8.5-10 .1 Not Available [facility] (Lab Registration) [address], [place], [address], 05/07/2023 17:04:33 05/07/2005/07/2023 COMP METAB OLIC PANEL bilirubin total 0.4 mg/dL 0.4-1. 5 Not Available [facility] (Lab Registration) [address], [place], [address], 05/07/2023 17:04:33 05/07/2005/07/2023 COMP METAB OLIC PANEL AST (SGOT) 17 U/L 15-37 Not Available [facility] (Lab Registration) [address], [place], [address], 05/07/2023 17:04:33 05/07/2005/07/2023 COMP METAB OLIC PANEL ALT (SGPT) 39 U/L 12-78 Not Available [facility] (Lab Registration) [address] [place], [address], 05/07/2023 17:04:33 05/07/2005/07/2023 COMP METAB OLIC PANEL alk phosphatase 64 U/L Not Available [facility] (Lab Registration) [address] [place], [address], 05/07/2023 17:04:33 05/07/20 23 05/07/2023 COMP METAB OLIC PANEL note Unles s other centeno noted testi ng perfo rmed at: [facility] [address] [place] [address] [phone] Damian perera MD CLIA: [id number] Not Available [facility] (Lab Registration) [address] [place], [address], 05/07/2023 17:04:33 05/19/2005/19/2024 BASIC METAB OLIC PANEL sodium 133 mmol/ L 136-14 5 low Not Available [facility] (Lab Registration) [address] [place], [address], 05/19/2024 17:27:23 05/19/2005/19/2024 BASIC METAB OLIC PANEL potassium 4.6 mmol/ L 3.5-5. 1 Not Available [facility] (Lab Registration) [address] [place], [address], 05/19/2024 17:27:23 05/19/2005/19/2024 BASIC METAB OLIC PANEL chloride 97 mmol/ L 98-107 low Not Available [facility] (Lab Registration) [address] [place], [address], 05/19/2024 17:27:23 05/19/2005/19/2024 BASIC METAB OLIC PANEL carbon dioxide 30 mmol/ L 21-32 Not Available [facility] (Lab Registration) [address] [place], [address], 05/19/2024 17:27:23 05/19/2005/19/2024 BASIC METAB OLIC PANEL anion gap 6.0 Not Available [facility] (Lab Registration) [address] [place], [address], 05/19/2024 17:27:23 05/19/2005/19/2024 BASIC METAB OLIC PANEL glucose 115 mg/dL 70-110 high Not Available [facility] (Lab Registration) [address] [place], [address], 05/19/2024 17:27:23 05/19/2005/19/2024 BASIC METAB OLIC PANEL blood urea nitrogen 19 mg/dL 7-18 high Not Available [facility] (Lab Registration) [address], [place], [address], 05/19/2024 17:27:23 05/19/20 24 05/19/2024 BASIC METAB OLIC PANEL creatinine 1.2 mg/dL 0.8-1. 3 Not Available [facility] (Lab Registration) [address], [place], [address], 05/19/2024 17:27:23 05/19/2005/19/2024 BASIC METAB OLIC PANEL BUN/creatini ne ratio 15.8 9-21 Not Available [facility] (Lab Registration) [address], [place], [address], 05/19/2024 17:27:23 05/19/2005/19/2024 BASIC METAB OLIC PANEL [...] traylor ing kiney funct ion. Not Available [facility] (Lab Registration) [address], [place], [address], 05/19/2024 17:27:23 05/19/2005/19/2024 BASIC METAB OLIC PANEL calcium 9.0 mg/dL 8.5-10 .1 Not Available [facility] (Lab Registration) [address], [place], [address], 05/19/2024 17:27:23 05/19/20 24 05/19/2024 BASIC METAB OLIC PANEL note Unles s other centeno noted testi ng perfo rmed at: [facility] [address] [place] [address] [phone] Damian perera MD CLIA: [id number] Not Available [facility] (Lab Registration) [address] [place], [address], 05/19/2024 17:27:23 05/07/20 23 05/07/2023 XR, chest , 2 view [facility] [address] [facility] [place] [address] Phone: Fax: Name: ANGELLA SAUL Exam Date: 2022 : [birth year] Age 72 years Gender : M Access ion: [id number] Physic ivana: SAV CALI Facili ty: [facility] Facili ty HSV: Outpat ient Exam: CHEST [...] you for referr ing ANGELLA SAUL to [facility]. Legall y authen ticate d by POPE LIZZETTE Duggan DO 2022-07 0 11:49: 18 CC'ed Logic: Orderi ng Provid er: LAURA Gonzales CC Provid er: DEMARCO ROACH Attend ing Provid er: LAURA Gonzales Referr ing Provid er: LAURA Gonzales Admitt ing Provid er: LAURA Gonzales [email or web address] [facility] (Radiology) [address] [place], [address], 05/08/2023 16:03:23 05/19/20 24 05/19/2024 XR, chest , 2 view [facility] [place] [address] Phone: Fax: Name: ANGELLA SAUL Exam Date: 2023 : [birth year] Age 73 years Gender : M Access ion: [id number] Physic ivana: SAV CALI Facili ty: [facility] Facili ty HSV: Outpat ient Exam: CHEST [...] Thank you for referr ANGELLA Rivas to [facility]. Legall y authen ticate d by MICHEAL Ravi III, MD 2023- 10:53: 56 CC'ed Logic: Orderi ng Provid er: LAURA Gonzales CC Provid er: DEMARCO ROACH Attend ing Provid er: LAURA Gonzales Referr ing Provid er: LAURA Gonzales Admitt ing Provid er: LAURA Gonzales [facility] (Radiology) [address] [place], [address], 08/13/2024 15:59:17 Result Notes None recorded. Procedures Surgical History None recorded. Imaging Results Imaging Date Name Status LastModified by Organiz ation Details LastModified Time 05/07/2023 XR, chest, 2 view completed [email or web address] [facility] (Radiology) [address] [place], [address], 05/08/2023 16:03:23 05/19/2024 XR, chest, 2 view completed [email or web address] [facility] (Radiology) [address] [place], [address], 08/13/2024 15:59:17 Procedure Notes None recorded. Medical Equipment None Reported. Allergies Allergen ID Allergen Name Allergen Category Reaction Reaction Severity Criticality Documentation Date Start Date Code Code System Note Provider Name and Address Organization Details Recorded Time 88564 azithromy debora medicatio n Not available Not available Not available 05/02/[address] [facility] 15:07:46 Medications Name Sig Start Date Stop [...] Updated DateTime 05/07/2023 177.8 cm 35.9 kg/m2 199257.09 g 98 [degF] [facility] [place] 05/07/2023 09:38:34 Date Recorded Body height Body mass index (BMI) Body weight Provider Name and Address Organization Details Last Updated DateTime 05/19/2024 177.8 cm 35.9 kg/m2 862752.09 g [facility] [place] 05/19/2024 09:37:19 Social History Question Answer Notes LastModified by Organizat ion Details LastModified Time Tobacco Smoking Status Former Smoker [facility] [place] 05/02/2023 15:09:11 What Is Your Level Of Alcohol Consumption? None [email or web address] Information not available 05/02/2023 Sex: Unknown Functional Status None recorded. Mental Status None recorded. Family History Nothing Reported. Medical History No medical history recorded. Past Encounters Encounter ID Performer Location Encounter Start Date Encounter Closed Date Diagnosis/Indication Diagnosis SNOMED-CT Code Diagnosis ICD10 Code Diagnosis Note [id number] Carson Cali Jr, MD [facility] [address] [address] 05/07/2023 08:49:26 05/07/2023 10:03:28 Renal cell carcinoma [id number] C64.9 Patient with history of renal cell carcinoma status post left open nephrectom y in February 2018. Surveillan ce labs today. Chest x-ray as well. Nocturia 927793853 R35.1 patient with history of nocturia. He admittedly has some sleep apnea and sleeping issues. We discussed melatonin to help with some sleep. He is not responded to alpha blockers in the past. [id number] Carson Cali Jr, MD [facility] [address] [address] 05/19/2024 09:34:11 05/19/2024 10:07:01 Renal cell carcinoma [id number] C64.9 Patient with history of renal cell carcinoma status post left open nephrectom y in February 2018. Surveillan ce labs today. Chest x-ray as well. Nocturia 186178736 R35.1 patient with history of nocturia. He [...] Name 05/07/2023 1 [place] Angella Auguste [id number] Angella Auguste 05/07/2023 2 [employer] OPTIONS (MEDICARE SUPPLEMENT) Angella Auguste [id number] Angella Auguste 05/19/2024 1 [place] Angella Auguste [id number] Angella Auguste 05/19/2024 2 [employer]IONS (MEDICARE SUPPLEMENT) Angella Auguste [id number] Angella Auguste Notes Date Note Type Note Provider Name and Address Organization Details Recorded Time 05/07/2023 text/html Patient is a 72-year-old white male with a history of renal cell carcinoma status post a left open nephrectomy in February 2018 by myself. He was previously seen at [facility] and transferred care to [facility] today. His last visit was April 25, 2022. Previous surveillance studies have indicated a creatinine of 1.2 and normal liver functions. His PSA a year ago was normal at 0.4. Patient continues to have some nocturia at night. He is tried Flomax without help. Admittedly has some sleeping issues. Carson Cali Jr, MD [address] [place] [address], [address], [address], [facility] 05/07/2023 15:19:47 05/19/2024 text/html Patient is [...] times however. Carson Cali Jr, MD [address] [facility], [address], [place], [address], [facility] 05/19/2024 12:06:43
--- NOTE | 2024-11-25 07:00 | MR_ITS ---
FINAL REPORT TECHNIQUE: MRI images of the intracranial vessels CLINICAL HISTORY: worsening facial pain. HX KIDNEY CANCER 2018. TRIGEMINAL NEURALGIA. COMPARISON: None FINDINGS: MRA HEAD: Multiple projection images of the brain arterial vasculature were obtained without contrast. raw data images were also reviewed. The internal carotid arteries are patent. The middle cerebral arteries and visualized proximal branches are patent. The anterior cerebral arteries are patent. The intracranial vertebral arteries are patent. The basilar artery is patent. The posterior cerebral arteries are patent. IMPRESSION: Unremarkable MRA of the intracranial vessels. Reviewed, Interpreted and Dictated by Navarro Cuevas MD Transcribed by Rylie Alberts Authenticated and [facility]
[2024-11-25] MEDS: SODIUM CHLORIDE 0.9% 10ML SYR (RAD ONLY) 10 ML IV (07:49)
[2024-11-25] MEDS: SODIUM CHLORIDE 0.9% 50ML BAG 20 ML IV (07:50)
[2024-11-25] MEDS: GADOTERIDOL INJ 20ML SYRINGE 20 ML IV (07:50)
== END 2024-11-25 23:59 | disposition home or self-care (01) ==
LOC: RAD 06:45
PROVIDERS: PCP Family Medicine; Visit Provider Specialist
DX: G50.0 Trigeminal neuralgia (principal)
CPT/HCPCS: 70546; A9576

== ENCOUNTER 2024-12-01 13:22 | Outpatient (POV) | payer MEDICARE, OTHER, SELFPAY ==
--- OUTSIDE RECORDS SUMMARY | 2024-12-01 13:25 | XMS_ITS | Data Portability ---
Author Organization [facility] Medicine and [facility] Address [address] [place] [address] Assessment No assessment recorded. Plan of Treatment Reminders Order Date Submit Date Provider Last Modified By Organization Details Last Modified Time Details Appointments OV EST 15 2024 09:45A M Carson Cali Jr, MD Not available Not available Not available Lab BMP, blood 2023 024 [email or web address] [facility] (Laboratory), [address] [place], [address], 05/26/2024 07:24:28 PSA, serum or plasma 2023 024 [facility] (Laboratory), [place], [address], 05/19/2024 17:26:16 hepatic function panel, serum 2023 024 [facility] (Laboratory), [place], [address], 05/19/2024 17:27:28 CMP, serum or plasma [address] (Laboratory), [place], [address], 05/08/2023 10:51:26 Referral None recorded. Procedures None recorded. Surgeries None recorded. Imaging XR, chest, 2 view [address] [facility], [address] [place] [address] [place], [address], 05/19/2024 14:11:58 XR, chest, 2 view 2022 023 [email or web address] [facility] (Radiology), [address], [place], [address], 05/08/2023 10:51:26 Medication Orders None recorded. Patient TargetsNo targets recorded. Patient InstructionsNo instructions recorded. Reason for Referral None Reported. Results Created Date Observation Date Name Description Value Unit Range Abnormal Flag Note LastModifiedBy Organization Detail LastModifiedTime 05/07/2005/07/2023 COMP METAB OLIC PANEL sodium 136 mmol/ L 136-14 5 Not Available [facility] (Lab Registration) [address], [place], [address], 05/07/2023 17:04:33 05/07/2005/07/2023 COMP METAB OLIC PANEL potassium 5.0 mmol/ L 3.5-5. 1 Not Available [facility] (Lab Registration) [address], [place], [address], 05/07/2023 17:04:33 05/07/2005/07/2023 COMP METAB OLIC PANEL chloride 99 mmol/ L 98-107 Not Available [facility] (Lab Registration) [address] [place], [address], 05/07/2023 17:04:33 05/07/2005/07/2023 COMP METAB OLIC PANEL carbon dioxide 29 mmol/ L 21-32 Not Available [facility] (Lab Registration) [address] [place], [address], 05/07/2023 17:04:33 05/07/2005/07/2023 COMP METAB OLIC PANEL anion gap 8.0 Not Available [facility] (Lab Registration) [address] [place], [address], 05/07/2023 17:04:33 10/11/20 23 05/07/2023 COMP METAB OLIC PANEL glucose 110 mg/dL 70-110 Not Available [facility] (Lab Registration) [address] [place], [address], 05/07/2023 17:04:33 05/07/20 23 05/07/2023 COMP METAB OLIC PANEL blood urea nitrogen 18 mg/dL 7-18 Not Available [facility] (Lab Registration) [address] [place], [address], 05/07/2023 17:04:33 05/07/20 23 05/07/2023 COMP METAB OLIC PANEL creatinine 1.1 mg/dL 0.8-1. 3 Not Available [facility] (Lab Registration) [address] [place], [address], 05/07/2023 17:04:33 05/07/20 23 05/07/2023 COMP METAB OLIC PANEL BUN/creatini ne ratio 16.4 ratio 9-21 Not Available [facility] (Lab Registration) [address] [place], [address], 05/07/2023 17:04:33 05/07/2005/07/2023 COMP METAB OLIC PANEL estimated glom filtration rate 70 mL/mi n >60- Not Available [facility] (Lab Registration) [address] [place], [address], 05/07/2023 17:04:33 05/07/20 23 05/07/2023 COMP METAB OLIC PANEL total protein 7.5 g/dL 6.4-8. 2 Not Available [facility] (Lab Registration) [address] [place], [address], 05/07/2023 17:04:33 05/07/20 23 05/07/2023 COMP METAB OLIC PANEL albumin 4.1 g/dL 3.4-5. 0 Not Available [facility] (Lab Registration) [address] [place], [address], 05/07/2023 17:04:33 05/07/20 23 05/07/2023 COMP METAB OLIC PANEL calcium 8.8 mg/dL 8.5-10 .1 Not Available [facility] (Lab Registration) [address], [place], [address], 05/07/2023 17:04:33 05/07/20 23 05/07/2023 COMP METAB OLIC PANEL corrected calcium 8.7 mg/dL 8.5-10 .1 Not Available [facility] (Lab Registration) [address], [place], [address], 05/07/2023 17:04:33 05/07/2005/07/2023 COMP METAB OLIC PANEL bilirubin total 0.4 mg/dL 0.4-1. 5 Not Available [facility] (Lab Registration) [address], [place], [address], 05/07/2023 17:04:33 05/07/2005/07/2023 COMP METAB OLIC PANEL AST (SGOT) 17 U/L 15-37 Not Available [facility] (Lab Registration) [address], [place], [address], 05/07/2023 17:04:33 05/07/2005/07/2023 COMP METAB OLIC PANEL ALT (SGPT) 39 U/L 12-78 Not Available [facility] (Lab Registration) [address] [place], [address], 05/07/2023 17:04:33 05/07/2005/07/2023 COMP METAB OLIC PANEL alk phosphatase 64 U/L Not Available [facility] (Lab Registration) [address] [place], [address], 05/07/2023 17:04:33 05/07/20 23 05/07/2023 COMP METAB OLIC PANEL note Unles s other centeno noted testi ng perfo rmed at: [facility] [address] [place] [address] [phone] Damian perera MD CLIA: [id number] Not Available [facility] (Lab Registration) [address], [place], [address], 05/07/2023 17:04:33 05/19/2005/19/2024 PROST ATE SPECI FIC AG (PSA) prostate specific Ag (PSA) 0.59 NG/mL 0.0-4. 0 Not Available [facility] (Lab Registration) [address], [place], [address], 05/19/2024 17:26:16 05/19/2005/19/2024 PROST ATE SPECI FIC AG (PSA) note Unles s other centeno noted testi ng perfo rmed at: [facility] [address] [place] [address] [phone] Damian perera MD CLIA: [id number] Not Available [facility] (Lab Registration) [address], [place], [address], 05/19/2024 17:26:16 05/19/2005/19/2024 BASIC METAB OLIC PANEL sodium 133 mmol/ L 136-14 5 low Not Available [facility] (Lab Registration) [address] [place], [address], 05/19/2024 17:27:23 05/19/2005/19/2024 BASIC METAB OLIC PANEL potassium 4.6 mmol/ L 3.5-5. 1 Not Available [facility] (Lab Registration) [address] [place], [address], 05/19/2024 17:27:23 05/19/2005/19/2024 BASIC METAB OLIC PANEL chloride 97 mmol/ L 98-107 low Not Available [facility] (Lab Registration) [address] [place], [address], 05/19/2024 17:27:23 05/19/2005/19/2024 BASIC METAB OLIC PANEL carbon dioxide 30 mmol/ L 21-32 Not Available [facility] (Lab Registration) [address], [place], [address], 05/19/2024 17:27:23 05/19/2005/19/2024 BASIC METAB OLIC PANEL anion gap 6.0 Not Available [facility] (Lab Registration) [address], [place], [address], 05/19/2024 17:27:23 05/19/2005/19/2024 BASIC METAB OLIC PANEL glucose 115 mg/dL 70-110 high Not Available [facility] (Lab Registration) [address], [place], [address], 05/19/2024 17:27:23 05/19/2005/19/2024 BASIC METAB OLIC PANEL blood urea nitrogen 19 mg/dL 7-18 high Not Available [facility] (Lab Registration) [address], [place], [address], 05/19/2024 17:27:23 05/19/2005/19/2024 BASIC METAB OLIC PANEL creatinine 1.2 mg/dL 0.8-1. 3 Not Available [facility] (Lab Registration) [address], [place], [address], 05/19/2024 17:27:23 05/19/2005/19/2024 BASIC METAB OLIC PANEL BUN/creatini ne ratio 15.8 9-21 Not Available [facility] (Lab Registration) [address] [place], [address], 05/19/2024 17:27:23 05/19/2005/19/2024 BASIC METAB OLIC PANEL [...] traylor ing kiney funct ion. Not Available [facility] (Lab Registration) [address], [place], [address], 05/19/2024 17:27:23 05/19/2005/19/2024 BASIC METAB OLIC PANEL calcium 9.0 mg/dL 8.5-10 .1 Not Available [facility] (Lab Registration) [address], [place], [address], 05/19/2024 17:27:23 05/19/2005/19/2024 BASIC METAB OLIC PANEL note Unles s other centeno noted testi ng perfo rmed at: [facility] [address] [place] [address] [phone] Damian perera MD CLIA: [id number] Not Available [facility] (Lab Registration) [address], [place], [address], 05/19/2024 17:27:23 05/19/20 24 05/19/2024 HEPAT IC FUNCT ION PANEL total protein 7.2 g/dL 6.4-8. 2 Not Available [facility] (Lab Registration) [address] [place], [address], 05/19/2024 17:27:28 05/19/2005/19/2024 HEPAT IC FUNCT ION PANEL albumin 3.8 g/dL 3.4-5. 0 Not Available [facility] (Lab Registration) [address] [place], [address], 05/19/2024 17:27:28 05/19/20 24 05/19/2024 HEPAT IC FUNCT ION PANEL bilirubin direct 0.1 mg/dL 0.0-0. 3 Not Available [facility] (Lab Registration) [address] [place], [address], 05/19/2024 17:27:28 05/19/2005/19/2024 HEPAT IC FUNCT ION PANEL bilirubin total 0.3 mg/dL 0.4-1. 5 low Not Available [facility] (Lab Registration) [address] [place], [address], 05/19/2024 17:27:28 05/19/2005/19/2024 HEPAT IC FUNCT ION PANEL AST (SGOT) 14 U/L 15-37 low Not Available [facility] (Lab Registration) [address] [place], [address], 05/19/2024 17:27:28 05/19/20 24 05/19/2024 HEPAT IC FUNCT ION PANEL ALT (SGPT) 32 U/L 12-78 Not Available [facility] (Lab Registration) [address] [place], [address], 05/19/2024 17:27:28 05/19/2005/19/2024 HEPAT IC FUNCT ION PANEL alk phosphatase 58 U/L Not Available [facility] (Lab Registration) [address] [place], [address], 05/19/2024 17:27:28 05/19/2005/19/2024 HEPAT IC FUNCT ION PANEL note Unles s other centeno noted testi ng perfo rmed at: [facility] [address] [email or web address] [place], [place] [address] [phone] Damian perera MD CLIA: [id number] Not Available [facility] (Lab Registration) [address] [place], [address], 05/19/2024 17:27:28 05/07/2005/07/2023 XR, chest , 2 view [facility] [address] [place] [address] Phone: Fax: Name: ANGELLA SAUL Exam Date: 2022 : [birth year] Age 72 years Gender : M Access ion: [id number] Physic ivana: SAV CALI [facility] Facili ty HSV: Outpat ient Exam: [...] you for referr ing ANGELLA SAUL to [facility] Hospit al. Legall y authen ticate d by POPE LIZZETTE Duggan DO 2022-07 0- 11:49: 18 CC'ed Logic: Orderi ng Provid er: LAURA Gonzales CC Provid er: DEMARCO ROACH Attend ing Provid er: LAURA Gonzaels Referr ing Provid er: LAURA Gonzales Admitt ing Provid er: LAURA Gonzales [email or web address] [facility] (Radiology) [address] [place], [address], 05/08/2023 16:03:23 05/19/20 24 05/19/2024 XR, chest , 2 view [facility] [address] [place] [address] Phone: Fax: Name: ANGELLA SAUL Exam Date: 2023 : [birth year] Age 73 years Gender : M Access ion: [id number] Physic ivana: SAV CALI Facili ty: [facility] Facili ty HSV: Outpat ient Exam: CHEST [...] Amanda Landaverde 2023 Thank you for referr ing ANGELLA SAUL to [facility]. Legall y authen ticate d by MICHEAL Ravi III, MD 2023- 10:53: 56 CC'ed Logic: Orderi ng Provid er: LAURA Gonzales CC Provid er: DEMARCO ROACH Attend ing Provid er: LAURA Gonzales Referr ing Provid er: LAURA Gonzales Admitt ing Provid er: LAURA Gonzales [email or web address] [facility] (Radiology) [address], [place], [address], 08/13/2024 15:59:17 Result Notes None recorded. Procedures Surgical History None recorded. Imaging Results Imaging Date Name Status LastModified by Organiz ation Details LastModified Time 05/07/2023 XR, chest, 2 view completed [email or web address] [facility] (Radiology) [address], [place], [address], 05/08/2023 16:03:23 05/19/2024 XR, chest, 2 view completed [email or web address] [facility] (Radiology) [address], [place], [address], 08/13/2024 15:59:17 Procedure Notes None recorded. Medical Equipment None Reported. Allergies Allergen ID Allergen Name Allergen Category Reaction Reaction Severity Criticality Documentation Date Start Date Code Code System Note Provider Name and Address Organization Details Recorded Time 32311 azithromy debora medicatio n Not available Not available Not available 05/02/2023 63335 RxNorm [facility], [place] - [facility] - [place] & [place] 15:07:46 Medications Name Sig Start Date Stop [...] Updated DateTime 05/07/2023 177.8 cm 35.9 kg/m2 772075.09 g 98 [degF] Cynthia HUBER [facility] & [place] 05/07/2023 09:38:34 Date Recorded Body height Body mass index (BMI) Body weight Provider Name and Address Organization Details Last Updated DateTime 05/19/2024 177.8 cm 35.9 kg/m2 875874.09 g Cynthia Yeh [facility] & [place] 05/19/2024 09:37:19 Social History Question Answer Notes LastModified by Organizat ion Details LastModified Time Tobacco Smoking Status Former Smoker Lila hartman, [facility] & [place] 05/02/2023 15:09:11 What Is Your Level Of Alcohol Consumption? None [email or web address] Information not available 05/02/2023 Sex: Unknown Functional Status None recorded. Mental Status None recorded. Family History Nothing Reported. Medical History No medical history recorded. Past Encounters Encounter ID Performer Location Encounter Start Date Encounter Closed Date Diagnosis/Indication Diagnosis SNOMED-CT Code Diagnosis ICD10 Code Diagnosis Note [id number] [facility] Jr[facility] [address] [address] 05/07/2023 08:49:26 05/07/2023 10:03:28 Renal cell carcinoma 974969516 C64.9 Patient with history of renal cell carcinoma status post left open nephrectom y in February 2018. Surveillan ce labs today. Chest x-ray as well. Nocturia 743836418 R35.1 patient with history of nocturia. He admittedly has some sleep apnea and sleeping issues. We discussed melatonin to help with some sleep. He is not responded to alpha blockers in the past. [id number] Carson Cali Jr, MD [facility] [address] [address] 05/19/2024 09:34:11 05/19/2024 10:07:01 Renal cell carcinoma [id number] C64.9 Patient with history of renal cell carcinoma status post left open nephrectom y in February 2018. Surveillan ce labs today. Chest x-ray as well. Nocturia 857308923 R35.1 patient with history of nocturia. He admittedly has some sleep apnea and sleeping issues. We discussed melatonin to help with some sleep. He is not responded to alpha blockers in the past. Health Concerns Section Related Observation LastModified by Organization Detai ls LastModified Time None Recorded Concern Status LastModified by Organization Details LastModified Time None Recorded Advance Directives Directive None Recorded Payers Insurance Date Sequence Insurance Name Policy Number Policy Child Covered Member ID Child Member ID Guarantor Name 05/19/[address] [facility] (MEDICARE SUPPLEMENT) Angella Molina [id number] Angella Auguste 05/19/2024 1 [place]ICARE[place] Angella Madera Molina [id number] Angella Auguste Notes Date Note Type Note Provider Name and Address Organization Details Recorded Time 05/07/2023 text/html Patient is a 72-year-old white male with a history of renal cell carcinoma status post a left open nephrectomy in February 2018 by myself. He was previously seen at [facility] and transferred care to [facility] today. His last visit was April 25, 2022. Previous surveillance studies have indicated a creatinine of 1.2 and normal liver functions. His PSA a year ago was normal at 0.4. Patient continues to have some nocturia at night. He is tried Flomax without help. Admittedly has some sleeping issues. Carson Cali Jr, MD [address] [place] [address], [address], [address], [place] - [facility] - [place] 05/07/2023 15:19:47 05/19/2024 text/html Patient is a [...] 3-4 times however. Carson Cali Jr, MD [address] [place] [address], [address], [place], [address], [place] [facility] - [place] 05/19/2024 12:06:43
--- NOTE | 2024-12-01 13:42 | A.OFFVIS_ITS ---
[facility] Disclaimer: The information contained in this section may have been updated after the patient was seen, as this information can be updated by other users. Medical History Facial pain History of ulcer disease History of neck pain History of varicose veins of lower extremity History of hyperlipidemia Trigeminal neuralgia of left side of face Left trigeminal neuralgia. Currently asymptomatic on carbamazepine 200 mg twice daily but evidence of hyponatremia, (129, currently asymptomatic), on hydrochlorothiazide 12.5, 2/3 times daily). History of hypertension Nocturia Renal cell cancer Surgical History History of nephrectomy, left Family History Other Cancer Coronary artery disease Emphysema of lung Social History Smoking Status: Never smoker smoking status stop date: 2015 alcohol intake: never substance use type: denies use current occupational status: retired Travel in the last 8 weeks?: None household members: spouse housing: house marital status: number of children: 3 PM Subjective & Objective Subjective Subjective:: Patient is a pleasant 74-year-old male who presents today for follow-up of left trigeminal nerve block on 11/12/2024. Today he rates his pain a 0 out of 10. Patient denies any new trauma or injury. He does state that it did take about 1 week for it to kick in however states that he is done really well. Patient states there is been about 2 times since that he has had a very small twinge of pain however it immediately went away and did not progress any worse. Patient does state that Dr. Kilpatrick had sent him to neurosurgery and that he still has this stuff scheduled coming up. He stated that there was mention of possible gamma knife intervention. He denies any other changes. His Onel has been reviewed and is appropriate. Review of Systems: General: No recent weight changes, no fever, no sleep disturbances Respiratory: No cough, no shortness of air, no recurring pulmonary infections Cardiovascular/peripheral vascular: No chest pain, no palpitations, no edema, no shortness of breath Gastrointestinal: No new onset incontinence, normal bowel movements reported Genitourinary: No new onset incontinence Musculoskeletal: Left-sided face pain Psychiatric: [Normal mood/affect] Neurological: [Denies weakness in extremities], [denies balance issues] Pain at rest (0-10 scale): 0 Objective Objective:: Physical Exam: General: Alert and oriented x3, no acute distress, pleasant and cooperative Lungs: Respirations even and unlabored, symmetrical chest expansion Eyes: PERRL Musculoskeletal: Flexion and extension of cervical [spine] within normal limits Neurological: Speech clear, no gross sensory deficit Has patient had previous pain injection?: Yes Percent improvement in pain since last injection: 100% Conservative treatment options previously tried: Home exercise plan Length of treatment: Longer than 12 weeks Meds Home Medications and Allergies Home Medications ?Medication ?Instructions ?Recorded ?Confirmed ?Type amlodipine 5 mg-benazepril 20 mg 1 cap PO DAILY 06/19/24 11/12/24 History capsule atorvastatin 20 mg tablet 20 mg PO DAILY 06/19/24 11/12/24 History aspirin 81 mg tablet,delayed 81 mg PO DAILY 09/13/24 11/12/24 History release amlodipine 5 mg tablet 5 mg PO DAILY 11/01/24 11/12/24 History hydrochlorothiazide 12.5 mg tablet 12.5 mg PO BID 11/01/24 11/12/24 History oxcarbazepine 150 mg tablet 300 mg (2 x 150 mg) PO BID 11/04/24 11/12/24 Rx Trigeminal neuralgia #120 tabs baclofen 10 mg tablet 20 mg (2 x 10 mg) PO HS Trigeminal 11/08/24 11/12/24 Rx Neuralgia #60 tabs New Prescriptions to Start Prescriptions: Allergies Allergy/AdvReac Type Severity Reaction Status Date / Time azithromycin (From ZITHROMAX) Allergy Mild Other Verified 11/08/24 11:54 Assessment and Plan *Assessment and plan (1) Trigeminal neuralgia: Status: Chronic Category: Medical Code(s): G50.0 - Trigeminal neuralgia Plan Patient has had significant improvement following his block along the left side and does not require any additional interventions at this time. Patient will return to clinic in 6 weeks for reevaluation of symptoms and plan of care. Patient has been instructed to contact the clinic with any concerns before the next appointment. Dr. Ndiaye has reviewed this note and agrees with this plan of care. This note was dictated using voice recognition software and make contain errors or omissions. All injections are used with Lidocaine, Bupivacaine and dexamethasone. Occasionally urine drug screen is needed to verify patient's compliance with our office pain contract. This is ordered based off specific treatments related to chronic pain with the potential to abuse certain medications.
[2024-12-01 15:46] VITALS: BP 126/87; PULSE 88; RESP 18; O2SAT 95; BMI 35.2
== END 2024-12-01 23:59 | disposition home or self-care (01) ==
LOC: SC.PAIN 13:24
PROVIDERS: PCP Family Medicine; Visit Provider Nurse Practitioner Family
DX: G50.0 Trigeminal neuralgia (principal)
CPT/HCPCS: 99212; G0463

== ENCOUNTER 2024-12-14 08:44 | Outpatient (CLI) | payer MEDICARE, OTHER, SELFPAY ==
[2024-12-14 09:51] LABS: Chloride 99 mmol/L (98-107)
[2024-12-14 09:52] LABS: Albumin Level 4.6 g/dl (3.5-5.0); Potassium 4.3 mmoL/L (3.5-5.1); Sodium 130 mmol/L (136-145)
[2024-12-14 09:54] LABS: Blood Urea Nitrogen 25 mg/dl (9-20); Estimated Glomerular Filt Rate 83 ml/min (>60); GFR (African American) 100 ML/MIN (>60)
[2024-12-14 09:55] LABS: Alanine Aminotransferase 19 U/L (12-78); Albumin/Globulin Ratio 1.9 (1.1-1.8); Alkaline Phosphatase 54 U/L (38-126); Anion Gap 11.3 mEq/L (5-15); Aspartate Amino Transferase 19 U/L (17-59); Bilirubin,Total 0.3 mg/dl (0.2-1.3); Calcium 9.2 mg/dl (8.4-10.2); Carbon Dioxide 24 mmol/L (22.0-30.0); Globulin 2.4 g/dL (1.3-3.2); Glucose 110 mg/dl (74-100)
== END 2024-12-14 23:59 | disposition home or self-care (01) ==
LOC: LAB 08:45
PROVIDERS: PCP Family Medicine; Visit Provider Specialist
DX: G50.0 Trigeminal neuralgia (principal)
CPT/HCPCS: 36415; 80053

== ENCOUNTER 2024-12-15 11:37 | Outpatient (POV) | payer MEDICARE, OTHER, SELFPAY ==
--- OUTSIDE RECORDS SUMMARY | 2024-12-15 11:40 | XMS_ITS | Data Portability ---
Author Organization [facility] Medicine and [facility] [place] Address [address] [place] [address] Assessment No assessment recorded. Plan of Treatment Reminders Order Date Submit Date Provider Last Modified By Organization Details Last Modified Time Details Appointments OV EST 15 2024 09:45A M Carson Cali Jr, MD Not available Not available Not available Lab BMP, blood 2023 024 [email or web address] [facility] (Laboratory), [address] [place], [address], 05/26/2024 07:24:28 PSA, serum or plasma 2023 024 [facility] (Laboratory), [place], [address], 05/19/2024 17:26:16 hepatic function panel, serum 2023 024 [facility] (Laboratory), [place], [address], 05/19/2024 17:27:28 CMP, serum or plasma [address] (Laboratory), [place], [address], 05/08/2023 10:51:26 Referral None recorded. Procedures None recorded. Surgeries None recorded. Imaging XR, chest, 2 view [address] [facility], [address] [place] [address] [place], [address], 05/19/2024 14:11:58 XR, chest, 2 view 2022 023 [email or web address] [facility] (Radiology), [address], [place], [address], 05/08/2023 10:51:26 Medication Orders None recorded. Patient TargetsNo targets recorded. Patient InstructionsNo instructions recorded. Reason for Referral None Reported. Results Created Date Observation Date Name Description Value Unit Range Abnormal Flag Note LastModifiedBy Organization Detail LastModifiedTime 05/07/2005/07/2023 COMP METAB OLIC PANEL sodium 136 mmol/ L 136-14 5 Not Available [facility] (Lab Registration) [address], [place], [address], 05/07/2023 17:04:33 05/07/2005/07/2023 COMP METAB OLIC PANEL potassium 5.0 mmol/ L 3.5-5. 1 Not Available [facility] (Lab Registration) [address], [place], [address], 05/07/2023 17:04:33 05/07/2005/07/2023 COMP METAB OLIC PANEL chloride 99 mmol/ L 98-107 Not Available [facility] (Lab Registration) [address] [place], [address], 05/07/2023 17:04:33 05/07/2005/07/2023 COMP METAB OLIC PANEL carbon dioxide 29 mmol/ L 21-32 Not Available [facility] (Lab Registration) [address] [place], [address], 05/07/2023 17:04:33 05/07/2005/07/2023 COMP METAB OLIC PANEL anion gap 8.0 Not Available [facility] (Lab Registration) [address] [place], [address], 05/07/2023 17:04:33 10/11/20 23 05/07/2023 COMP METAB OLIC PANEL glucose 110 mg/dL 70-110 Not Available [facility] (Lab Registration) [address] [place], [address], 05/07/2023 17:04:33 05/07/20 23 05/07/2023 COMP METAB OLIC PANEL blood urea nitrogen 18 mg/dL 7-18 Not Available [facility] (Lab Registration) [address] [place], [address], 05/07/2023 17:04:33 05/07/20 23 05/07/2023 COMP METAB OLIC PANEL creatinine 1.1 mg/dL 0.8-1. 3 Not Available [facility] (Lab Registration) [address] [place], [address], 05/07/2023 17:04:33 05/07/20 23 05/07/2023 COMP METAB OLIC PANEL BUN/creatini ne ratio 16.4 ratio 9-21 Not Available [facility] (Lab Registration) [address] [place], [address], 05/07/2023 17:04:33 05/07/2005/07/2023 COMP METAB OLIC PANEL estimated glom filtration rate 70 mL/mi n >60- Not Available [facility] (Lab Registration) [address] [place], [address], 05/07/2023 17:04:33 05/07/20 23 05/07/2023 COMP METAB OLIC PANEL total protein 7.5 g/dL 6.4-8. 2 Not Available [facility] (Lab Registration) [address] [place], [address], 05/07/2023 17:04:33 05/07/20 23 05/07/2023 COMP METAB OLIC PANEL albumin 4.1 g/dL 3.4-5. 0 Not Available [facility] (Lab Registration) [address] [place], [address], 05/07/2023 17:04:33 05/07/20 23 05/07/2023 COMP METAB OLIC PANEL calcium 8.8 mg/dL 8.5-10 .1 Not Available [facility] (Lab Registration) [address], [place], [address], 05/07/2023 17:04:33 05/07/20 23 05/07/2023 COMP METAB OLIC PANEL corrected calcium 8.7 mg/dL 8.5-10 .1 Not Available [facility] (Lab Registration) [address], [place], [address], 05/07/2023 17:04:33 05/07/2005/07/2023 COMP METAB OLIC PANEL bilirubin total 0.4 mg/dL 0.4-1. 5 Not Available [facility] (Lab Registration) [address], [place], [address], 05/07/2023 17:04:33 05/07/2005/07/2023 COMP METAB OLIC PANEL AST (SGOT) 17 U/L 15-37 Not Available [facility] (Lab Registration) [address], [place], [address], 05/07/2023 17:04:33 05/07/2005/07/2023 COMP METAB OLIC PANEL ALT (SGPT) 39 U/L 12-78 Not Available [facility] (Lab Registration) [address] [place], [address], 05/07/2023 17:04:33 05/07/2005/07/2023 COMP METAB OLIC PANEL alk phosphatase 64 U/L Not Available [facility] (Lab Registration) [address] [place], [address], 05/07/2023 17:04:33 05/07/20 23 05/07/2023 COMP METAB OLIC PANEL note Unles s other centeno noted testi ng perfo rmed at: [facility] [address] [place] [address] [phone] Damian perera MD CLIA: [id number] Not Available [facility] (Lab Registration) [address], [place], [address], 05/07/2023 17:04:33 05/19/2005/19/2024 PROST ATE SPECI FIC AG (PSA) prostate specific Ag (PSA) 0.59 NG/mL 0.0-4. 0 Not Available [facility] (Lab Registration) [address], [place], [address], 05/19/2024 17:26:16 05/19/2005/19/2024 PROST ATE SPECI FIC AG (PSA) note Unles s other centeno noted testi ng perfo rmed at: [facility] [address] [place] [address] [phone] Damian perera MD CLIA: [id number] Not Available [facility] (Lab Registration) [address], [place], [address], 05/19/2024 17:26:16 05/19/2005/19/2024 BASIC METAB OLIC PANEL sodium 133 mmol/ L 136-14 5 low Not Available [facility] (Lab Registration) [address] [place], [address], 05/19/2024 17:27:23 05/19/2005/19/2024 BASIC METAB OLIC PANEL potassium 4.6 mmol/ L 3.5-5. 1 Not Available [facility] (Lab Registration) [address] [place], [address], 05/19/2024 17:27:23 05/19/2005/19/2024 BASIC METAB OLIC PANEL chloride 97 mmol/ L 98-107 low Not Available [facility] (Lab Registration) [address] [place], [address], 05/19/2024 17:27:23 05/19/2005/19/2024 BASIC METAB OLIC PANEL carbon dioxide 30 mmol/ L 21-32 Not Available [facility] (Lab Registration) [address], [place], [address], 05/19/2024 17:27:23 05/19/2005/19/2024 BASIC METAB OLIC PANEL anion gap 6.0 Not Available [facility] (Lab Registration) [address], [place], [address], 05/19/2024 17:27:23 05/19/2005/19/2024 BASIC METAB OLIC PANEL glucose 115 mg/dL 70-110 high Not Available [facility] (Lab Registration) [address], [place], [address], 05/19/2024 17:27:23 05/19/2005/19/2024 BASIC METAB OLIC PANEL blood urea nitrogen 19 mg/dL 7-18 high Not Available [facility] (Lab Registration) [address], [place], [address], 05/19/2024 17:27:23 05/19/2005/19/2024 BASIC METAB OLIC PANEL creatinine 1.2 mg/dL 0.8-1. 3 Not Available [facility] (Lab Registration) [address], [place], [address], 05/19/2024 17:27:23 05/19/2005/19/2024 BASIC METAB OLIC PANEL BUN/creatini ne ratio 15.8 9-21 Not Available [facility] (Lab Registration) [address] [place], [address], 05/19/2024 17:27:23 05/19/2005/19/2024 BASIC METAB OLIC PANEL [...] traylor ing kiney funct ion. Not Available [facility] (Lab Registration) [address], [place], [address], 05/19/2024 17:27:23 05/19/2005/19/2024 BASIC METAB OLIC PANEL calcium 9.0 mg/dL 8.5-10 .1 Not Available [facility] (Lab Registration) [address], [place], [address], 05/19/2024 17:27:23 05/19/2005/19/2024 BASIC METAB OLIC PANEL note Unles s other centeno noted testi ng perfo rmed at: [facility] [address] [place] [address] [phone] Damian perera MD CLIA: [id number] Not Available [facility] (Lab Registration) [address], [place], [address], 05/19/2024 17:27:23 05/19/20 24 05/19/2024 HEPAT IC FUNCT ION PANEL total protein 7.2 g/dL 6.4-8. 2 Not Available [facility] (Lab Registration) [address] [place], [address], 05/19/2024 17:27:28 05/19/2005/19/2024 HEPAT IC FUNCT ION PANEL albumin 3.8 g/dL 3.4-5. 0 Not Available [facility] (Lab Registration) [address] [place], [address], 05/19/2024 17:27:28 05/19/20 24 05/19/2024 HEPAT IC FUNCT ION PANEL bilirubin direct 0.1 mg/dL 0.0-0. 3 Not Available [facility] (Lab Registration) [address] [place], [address], 05/19/2024 17:27:28 05/19/2005/19/2024 HEPAT IC FUNCT ION PANEL bilirubin total 0.3 mg/dL 0.4-1. 5 low Not Available [facility] (Lab Registration) [address] [place], [address], 05/19/2024 17:27:28 05/19/2005/19/2024 HEPAT IC FUNCT ION PANEL AST (SGOT) 14 U/L 15-37 low Not Available [facility] (Lab Registration) [address] [place], [address], 05/19/2024 17:27:28 05/19/20 24 05/19/2024 HEPAT IC FUNCT ION PANEL ALT (SGPT) 32 U/L 12-78 Not Available [facility] (Lab Registration) [address] [place], [address], 05/19/2024 17:27:28 05/19/2005/19/2024 HEPAT IC FUNCT ION PANEL alk phosphatase 58 U/L Not Available [facility] (Lab Registration) [address] [place], [address], 05/19/2024 17:27:28 05/19/2005/19/2024 HEPAT IC FUNCT ION PANEL note Unles s other centeno noted testi ng perfo rmed at: [facility] [address] [employer] [facility] [employer] [place], [place] [address] [phone] Damian perera MD CLIA: [id number] Not Available [facility] (Lab Registration) [address] [place], [address], 05/19/2024 17:27:28 05/07/2005/07/2023 XR, chest , 2 view [facility] [address] [place] [address] Phone: Fax: Name: ANGELLA SAUL Exam Date: 2022 : [birth year] Age 72 years Gender : M Access ion: [id number] Physic ivana: SAV CALI Facili ty: [facility] Facili ty HSV: Outpat ient [...] you for referr ing ANGELLA SAUL to [facility]y Hospit al. Legall y authen ticate d by POPE LIZZETTE Duggan DO 2022-07 0- 11:49: 18 CC'ed Logic: Orderi ng Provid er: LAURA Gonzales CC Provid er: DEMARCO ROACH Attend ing Provid er: LAURA Gonzales Referr ing Provid er: LAURA Gonzales Admitt ing Provid er: LAURA Gonzales [email or web address] [facility] (Radiology) [address] [place], [address], 05/08/2023 16:03:23 05/19/20 24 05/19/2024 XR, chest , 2 view [facility] [address] [place] [address] Phone: Fax: Name: ANGELLA SAUL Exam Date: 2023 : [birth year] Age 73 years Gender : M Access ion: [id number] Physic ivana: SAV CALI Facili ty: [facility] Facili ty HSV: Outpat ient Exam: [...] you for referr ing ANGELLA SAUL to [facility]. Legall y authen ticate d by MICHEAL Ravi III, MD 2023- 10:53: 56 CC'ed Logic: Orderi ng Provid er: LAURA Gonzales CC Provid er: DEMARCO ROACH Attend ing Provid er: LAURA Gonzales Referr ing Provid er: LAURA Gonzales Admitt ing Provid er: LAURA Gonzales [email or web address] [facility] (Radiology) [address], [place], [address], 08/13/2024 15:59:17 Result Notes None recorded. Procedures Surgical History None recorded. Imaging Results Imaging Date Name Status LastModified by Organiz ation Details LastModified Time 05/07/2023 XR, chest, 2 view completed [email or web address] [facility] (Radiology) [address], [place], [address], 05/08/2023 16:03:23 05/19/2024 XR, chest, 2 view completed [email or web address] [facility] (Radiology) [address], [place], [address], 08/13/2024 15:59:17 Procedure Notes None recorded. Medical Equipment None Reported. Allergies Allergen ID Allergen Name Allergen Category Reaction Reaction Severity Criticality Documentation Date Start Date Code Code System Note Provider Name and Address Organization Details Recorded Time 07551 azithromy debora medicatio n Not available Not available Not available 05/02/2023 31225 RxNorm [facility] [place] [facility] [place] [facility] [place] 15:07:46 Medications Name Sig Start Date Stop [...] Updated DateTime 05/07/2023 177.8 cm 35.9 kg/m2 524315.09 g 98 [degF] Cynthia Resendezgett CECILE [facility] [place] 05/07/2023 09:38:34 Date Recorded Body height Body mass index (BMI) Body weight Provider Name and Address Organization Details Last Updated DateTime 05/19/2024 177.8 cm 35.9 kg/m2 073343.09 g Cynthia Resendezgett CECILE [facility] [place] 05/19/2024 09:37:19 Social History None recorded. Functional Status Question Answer Note LastModified by Organization D etails LastModified Time What is your level of alcohol consumption? None [email or web address] Information not available 05/02/2023 Mental Status None recorded. Family History Nothing Reported. Medical History No medical history recorded. Past Encounters Encounter ID Performer Location Encounter Start Date Encounter Closed Date Diagnosis/Indication Diagnosis SNOMED-CT Code Diagnosis ICD10 Code Diagnosis Note [id number] Carson Cali Jr, MD [facility] [place] [phone] 05/07/2023 08:49:26 05/07/2023 10:03:28 Renal cell carcinoma 814031158 C64.9 Patient with history of renal cell carcinoma status post left open nephrectom y in February 2018. Surveillan ce labs today. Chest x-ray as well. Nocturia 828937842 R35.1 patient with history of nocturia. He admittedly has some sleep apnea and sleeping issues. We discussed melatonin to help with some sleep. He is not responded to alpha blockers in the past. [id number] Carson Cali Jr, MD [facility] [address] [address] 05/19/2024 09:34:11 05/19/2024 10:07:01 Renal cell carcinoma [id number] C64.9 Patient with history of renal cell carcinoma status post left open nephrectom y in February 2018. Surveillan ce labs today. Chest x-ray as well. Nocturia 365621752 R35.1 patient with history of nocturia. He [...] Child Member ID Guarantor Name 05/19/2024 2 [employer] (MEDICARE SUPPLEMENT) Angella Auguste [id number] Angella Auguste 05/19/2024 1 [place]ICARE[place] Angella Auguste [id number] Angella Auguste Notes Date Note Type Note Provider Name and Address Organization Details Recorded Time 05/07/2023 text/html Patient is a 72-year-old white male with a history of renal cell carcinoma status post a left open nephrectomy in February 2018 by myself. He was previously seen at [facility] and transferred care to [facility] today. His last visit was April 25, 2022. Previous surveillance studies have indicated a creatinine of 1.2 and normal liver functions. His PSA a year ago was normal at 0.4. Patient continues to have some nocturia at night. He is tried Flomax without help. Admittedly has some sleeping issues. Carson Cali Jr, MD [address] [place] [address], [address], [address], [facility] [place] 05/07/2023 15:19:47 05/19/2024 text/html Patient is a [...] times however. Carson Cali Jr, MD [address] [place] [address], [address], [address], [facility] [place] 05/19/2024 12:06:43
[2024-12-15 11:48] VITALS: BP 112/81; PULSE 95; RESP 14; O2SAT 97; BMI 34.1
--- NOTE | 2024-12-15 12:02 | A.OFFVIS_ITS ---
[facility] Disclaimer: The information contained in this section may have been updated after the patient was seen, as this information can be updated by other users. Medical History Facial pain History of ulcer disease History of neck pain History of varicose veins of lower extremity History of hyperlipidemia Trigeminal neuralgia of left side of face Left trigeminal neuralgia. Good response to carbamazepine 200 mg po bid but developed hyponatremia. Recurrent symptoms on oxacarbazepine 300 mg po bid most likely due to diuretic therapy, (hydrochlorothiazide 12.5, 2/3 times daily). History of hypertension Nocturia Renal cell cancer Surgical History History of nephrectomy, left Family History Other Cancer Coronary artery disease Emphysema of lung Social History Smoking Status: Never smoker smoking status stop date: 2015 alcohol intake: never substance use type: denies use current occupational status: other Travel in the last 8 weeks?: None household members: spouse housing: house marital status: number of children: 3 PM Subjective & Objective Subjective Subjective:: Patient is a pleasant 74-year-old male who presents today for worsening pain there and he is jaw and left side of his face. Patient does state that he feels like the last injection has officially worn off. Patient did have a left trigeminal nerve block back in October that did provide 100% relief and really gave overall 3 weeks of improvement. Patient states he has been still doing a lot of testing and seeing other providers and then did go to [place] to speak with the provider for the [employer]. They did discuss that he would have significant downtime with that procedure and that he is progressing forward however due to his and her medical issues going on that he cannot afford to take this time off currently. Patient does state that the pain is interfering with his ability perform activities of daily living such as cooking and cleaning and would like to see about getting scheduled for repeat injection. Patient states this is really been the only thing that has given improved function since all of this started. Patient states that even brushing his teeth the other day using a soft bristle brush and Sensodyne still aggravated the overall symptoms. He also states when he was in [place] for that physicians appointment he even stopped and tried to eat eggs and that was very very painful. His Onel has been reviewed and is appropriate. Review of Systems: General: No recent weight changes, no fever, no sleep disturbances Respiratory: No cough, no shortness of air, no recurring pulmonary infections Cardiovascular/peripheral vascular: No chest pain, no palpitations, no edema, no shortness of breath Gastrointestinal: No new onset incontinence, normal bowel movements reported Genitourinary: No new onset incontinence Musculoskeletal: Left jaw/face pain, trigeminal neuralgia Psychiatric: [Normal mood/affect] Neurological: [Denies weakness in extremities], [denies balance issues] Pain at rest (0-10 scale): 8 Objective Objective:: Physical Exam: General: Alert and oriented x3, no acute distress, pleasant and cooperative Lungs: Respirations even and unlabored, symmetrical chest expansion Eyes: PERRL Musculoskeletal: Flexion and extension of cervical [spine] within normal limits Neurological: Speech clear, no gross sensory deficit Has patient had previous pain injection?: No Conservative treatment options previously tried: Home exercise plan Length of treatment: Longer than 12 weeks Meds Home Medications and Allergies Home Medications ?Medication ?Instructions ?Recorded ?Confirmed ?Type atorvastatin 20 mg tablet 20 mg PO DAILY 06/19/24 12/15/24 History aspirin 81 mg tablet,delayed 81 mg PO DAILY 09/13/24 12/15/24 History release oxcarbazepine 150 mg tablet 300 mg (2 x 150 mg) PO BID 11/04/24 12/15/24 Rx Trigeminal neuralgia #120 tabs amlodipine 10 mg tablet 10 mg PO DAILY 12/14/24 12/15/24 History hydrochlorothiazide 12.5 mg tablet 12.5 mg PO ONCE 12/14/24 12/15/24 History losartan 50 mg tablet 50 mg PO DAILY 12/14/24 12/15/24 History New Prescriptions to Start Prescriptions: Allergies Allergy/AdvReac Type Severity Reaction Status Date / Time azithromycin (From ZITHROMAX) Allergy Mild Other Verified 12/14/24 08:05 Assessment and Plan *Assessment and plan (1) Trigeminal neuralgia: Problem Comment: Currently on oxcarbazepine 300 mg twice daily and awaiting appointment with pain management and follow-up with [facility]. Status: Chronic Category: Medical Code(s): G50.0 - Trigeminal neuralgia (2) Facial pain: Status: Acute Category: Medical Code(s): R51.9 - Headache, unspecified (3) Trigeminal neuralgia of left side of face: Problem Comment: Left trigeminal neuralgia. Good response to carbamazepine 200 mg po bid but developed hyponatremia. Recurrent symptoms on oxacarbazepine 300 mg po bid most likely due to diuretic therapy, (hydrochlorothiazide 12.5, 2/3 times daily). Status: Chronic Category: Medical Code(s): G50.0 - Trigeminal neuralgia Plan Patient is experiencing worsening jaw and facial pain related to his trigeminal neuralgia. I did review over with him I do believe he would benefit from repeat trigeminal nerve block. Risk and benefits were discussed with patient and he would like to proceed forward with this plan of care. Patient has had this pain for approximately9 months unrelieved with conservative therapy including oral medications, heat and ice, topicals and continued at home exercising and stretching for longer than 12 weeks. Patient has been seen by a dentist, e ndodontist and neurologist with no additional options that have provided long- term relief. Patient will be scheduled for repeat left trigeminal nerve block with Dr. Ndiaye. This will be done without fluoroscopic guidance. Patient had his last trigeminal nerve block in October that did provide 100% relief with 3 weeks of improved function and overall decreased pain. Patient has been instructed to contact the clinic with any concerns before the next appointment. Dr. Ndiaye has reviewed this note and agrees with this plan of care. This note was dictated using voice recognition software and make contain errors or omissions. All injections are used with Lidocaine, Bupivacaine and Depo Medrol. Occasionally urine drug screen is needed to verify patient's compliance with our office pain contract. This is ordered based off specific treatments related to chronic pain with the potential to abuse certain medications.
== END 2024-12-15 23:59 | disposition home or self-care (01) ==
LOC: SC.PAIN 11:38
PROVIDERS: PCP Family Medicine; Visit Provider Nurse Practitioner Family
DX: G50.0 Trigeminal neuralgia (principal); R51.9 Headache, unspecified; Z73.89 Other problems related to life management difficulty
CPT/HCPCS: 99212; G0463

== ENCOUNTER 2024-12-16 16:00 | Emergency (ER) | payer MEDICARE, OTHER, SELFPAY ==
--- NOTE | 2024-12-16 16:07 | HMH.EDGENADL ---
Discharge Plan Disposition Patient Disposition: Home, Self-Care Prescriptions Prescriptions: No Action amlodipine 10 mg tablet 10 mg PO DAILY Patient Comments: TAKE 1 TABLET BY MOUTH EVERY DAY AT BEDTIME losartan 50 mg tablet 50 mg PO DAILY oxcarbazepine 150 mg tablet 300 mg PO BID Qty: 120 6RF atorvastatin 20 mg tablet 20 mg PO DAILY aspirin [Aspir-81] 81 mg Tablet,Delayed Release (Dr/Ec) 81 mg PO DAILY hydrochlorothiazide 12.5 mg tablet 12.5 mg PO ONCE Referrals Follow up/Referrals: Karmen Mehta MD [Primary Care Provider] - See instructions Activity Restrictions/Add. Instructions Additional Instructions/Restrictions: Today you were evaluated in the emergency department for pain. You were given Toradol and Decadron. Please increase your fluid intake today. You may take Tylenol or Motrin [id number] as directed. Please follow-up with your PCP. Please return to the ED for any worsening of condition. Clinical Impressions Clinical Impression: Trigeminal neuralgia of left side of face Instructions Patient Instructions: DI for Acute Pain -- Adult Print Language Print Language: Mongolian Discharge ED Provider: Anderson Neville General Adult HPI <Summer Duran APRN - Last Filed: 12/16/24 16:56> General Chief complaint: PAIN Stated complaint: Trigeminal Neuralgia Pain Time Seen by Provider: 12/16/24 16:03 History of Present Illness HPI narrative: patient is a 74 year old PMHx trigeminal neuralgia, hypertension, renal cell carcinoma who presents to the ED for complaints of acute trigeminal neuralgia pain. Patient states he is having shooting pains in the left jaw. He is scheduled to see pain management this summer. Related Data Home Medications ?Medication ?Instructions ?Recorded ?Confirmed atorvastatin 20 mg tablet 20 mg PO DAILY 06/19/24 12/15/24 aspirin 81 mg tablet,delayed 81 mg PO DAILY 09/13/24 12/15/24 release amlodipine 10 mg tablet 10 mg PO DAILY 12/14/24 12/15/24 hydrochlorothiazide 12.5 mg tablet 12.5 mg PO ONCE 12/14/24 12/15/24 losartan 50 mg tablet 50 mg PO DAILY 12/14/24 12/15/24 Previous Rx's ?Medication ?Instructions ?Recorded oxcarbazepine 150 mg tablet 300 mg (2 x 150 mg) PO BID 11/04/24 Trigeminal neuralgia #120 tabs Allergies Allergy/AdvReac Type Severity Reaction Status Date / Time azithromycin (From ZITHROMAX) Allergy Mild Other Verified 12/14/24 08:05 [facility] <Summer Duran APRN - Last Filed: 12/16/24 16:56> [facility] Disclaimer: The information contained in this section may have been updated after the patient was seen, as this information can be updated by other users. Medical History Facial pain History of ulcer disease History of neck pain History of varicose veins of lower extremity History of hyperlipidemia Trigeminal neuralgia of left side of face Left trigeminal neuralgia. Good response to carbamazepine 200 mg po bid but developed hyponatremia. Recurrent symptoms on oxacarbazepine 300 mg po bid most likely due to diuretic therapy, (hydrochlorothiazide 12.5, 2/3 times daily). History of hypertension Nocturia Renal cell cancer Surgical History History of nephrectomy, left Family History Other Cancer Coronary artery disease Emphysema of lung Social History Smoking Status: Never smoker smoking status stop date: 2015 alcohol intake: never substance use type: denies use current occupational status: other Travel in the last 8 weeks?: None household members: spouse housing: house marital status: number of children: 3 Have you lived/traveled outside [place] in past 30 days?: No Contact w/someone who lives/traveled outside [place] past 30 days?: No Exposure to someone with infectious disease in past 14 days?: No Do you have a fever (greater than 100.4 F or 38 C)?: No Have you tested positive for COVID-19?: No Exposed to someone with COVID-19 in past 14 days?: No Do you have a sore throat?: No Do you have a cough?: No Do you have any weakness?: No Do you have any diarrhea?: No Are you experiencing any unusual bleeding?: No Do you have any muscle aches/pain?: No Do you have any abdominal pain?: No Are you experiencing loss of taste or smell?: No Other Medical History Have you received the Flu Vaccine for this season: No Have you received the Pneumonia Vaccine: No <Summer DuranJACQUE prince - Last Filed: 12/16/24 16:56> ROS Obtained: Yes Systems reviewed as appropriate & no additional complaints except as documented Physical Exam <Summer DuranJACQUE prince - Last Filed: 12/16/24 16:56> General General appearance: alert and in no apparent distress Comment: left cheek tenderness Head Head exam: atraumatic and normocephalic Eye Eye exam: Present normal appearance and PERRL ENT ENT exam: Present normal exam Neck Neck exam: Present normal inspection Chest Chest inspection: Present normal inspection and symmetric chest wall rise; Absent tenderness Respiratory Respiratory exam: Present normal lung sounds bilaterally Cardiovascular Cardiovascular exam: Present regular rate Abdominal Exam Abdominal exam: Present soft and normal bowel sounds; Absent tenderness Extremities Exam Extremities exam: Present normal inspection and full ROM Back Exam Back exam: Present normal inspection and full ROM Neurological Exam Neurological exam: Present alert and oriented X3 Psychiatric Psychiatric exam: Present normal affect and normal mood Skin Skin exam: Present warm and dry Medical Decision Making <Summer Duran APRN - Last Filed: 12/16/24 16:56> Medical Records Screening: Per USPSTF and CDC recommendations, given the prevalence of disease in our region, it is our hospital?s policy to screen for HIV and viral Hepatitis for all patients aged 18 and over and those with ongoing risk factors. Onel Inquiry Pt receiving controlled substance: No Vital Signs: 12/16/24 16:13 12/16/24 16:55 Temperature 98.5 F 98.4 F Temperature Source Oral Pulse Rate 93 H Pulse Rate [Right Radial] 91 H Respiratory Rate 16 18 Blood Pressure 123/98 H Blood Pressure [Right Arm] 114/72 Blood Pressure Mean [Right Arm] 86 Blood Pressure Source [Right Arm] Automatic Cuff Blood Pressure Position [Right Arm] Sitting 02 Sat by Pulse Oximetry 99 Oxygen Delivery Method Room Air Room Air Orders (Tests/Meds): ED MEDICATIONS Discontinued Medications Generic Name Dose Route Start Last Admin Trade Name Freq PRN Reason Stop Dose Admin Dexamethasone Sodium Phosphate 10 mg 12/16/24 16:12 12/16/24 16:32 Dexamethasone 4mg/Ml 1ml Vial IM 12/16/24 16:13 10 mg ONCE ONE Administration Ketorolac Tromethamine 15 mg 12/16/24 16:12 12/16/24 16:32 Ketorolac 30mg/Ml Vial IM 12/16/24 16:13 15 mg ONCE ONE Administration Medical Decision Narrative: In summary, patient is a 74 year old male PMHx trigeminal neuralgia, hypertension, renal cell carcinoma who presents to the ED for complaints of acute trigeminal neuralgia pain. Patient states he is having shooting pains in the left jaw. He is scheduled to see pain management this summer. Has taken acetaminophen prior to arrival without any relief. 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 He denies any other complaints at this time. Denies fever, chills, body aches, difficulty swallowing, trismus, chest pain, shortness of breath. Upon initial evaluation patient is alert, oriented and cooperative. Physical exam remarkable for left lower jaw tenderness. Discussed with patient that we can try Toradol and Decadron then reevaluate. He is agreeable to this plan of care. Upon reassessment, patient states that his pain has resolved. Discussed with him that he will need to follow-up with PCP. We discussed return precautions to the ED. Patient verbalized understanding. <Anderson Neville MD - Last Filed: 12/16/24 19:08> Vital Signs: 12/16/24 16:13 12/16/24 16:55 Temperature 98.5 F 98.4 F Temperature Source Oral Pulse Rate 93 H Pulse Rate [Right Radial] 91 H Respiratory Rate 16 18 Blood Pressure 123/98 H Blood Pressure [Right Arm] 114/72 Blood Pressure Mean [Right Arm] 86 Blood Pressure Source [Right Arm] Automatic Cuff Blood Pressure Position [Right Arm] Sitting 02 Sat by Pulse Oximetry 99 Oxygen Delivery Method Room Air Room Air Orders (Tests/Meds): ED MEDICATIONS Discontinued Medications Generic Name Dose Route Start Last Admin Trade Name Freq PRN Reason Stop Dose Admin Dexamethasone Sodium Phosphate 10 mg 12/16/24 16:12 12/16/24 16:32 Dexamethasone 4mg/Ml 1ml Vial IM 12/16/24 16:13 10 mg ONCE ONE Administration Ketorolac Tromethamine 15 mg 12/16/24 16:12 12/16/24 16:32 Ketorolac 30mg/Ml Vial IM 12/16/24 16:13 15 mg ONCE ONE Administration Medical Decision Narrative: In summary, patient is a 74 year old male PMHx trigeminal neuralgia, hypertension, renal cell carcinoma who presents to the ED for complaints of acute trigeminal neuralgia pain. Patient states he is having shooting pains in the left jaw. He is scheduled to see pain management this summer. Has taken acetaminophen prior to arrival without any relief. 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 He denies any other complaints at this time. Denies fever, chills, body aches, difficulty swallowing, trismus, chest pain, shortness of breath. Upon initial evaluation patient is alert, oriented and cooperative. Physical exam remarkable for left lower jaw tenderness. Discussed with patient that we can try Toradol and Decadron then reevaluate. He is agreeable to this plan of care. Upon reassessment, patient states that his pain has resolved. Discussed with him that he will need to follow-up with PCP. We discussed return precautions to the ED. Patient verbalized understanding. I was consulted by the [facility], and we discussed the complexity of the problems being addressed. I approved the treatment and management plan for this patient's care in the Emergency Department, thus performing a substantive portion of the medical decision making. Anderson Neville MD Critical Care <Summer Duran APRN - Last Filed: 12/16/24 16:56> Critical Care Time Critical Care Time: No
[2024-12-16 16:13] VITALS: BP 114/72; PULSE 91; RESP 16; TEMP 36.9; O2SAT 99; BMI 34.1
--- OUTSIDE RECORDS SUMMARY | 2024-12-16 16:14 | XMS_ITS | Data Portability ---
Author Organization [facility] [place] Address [address] [place] [address] Assessment No assessment recorded. Plan of Treatment Reminders Order Date Submit Date Provider Last Modified By Organization Details Last Modified Time Details Appointments OV EST 15 2024 09:45A M Carson Cali Jr, MD Not available Not available Not available Lab BMP, blood 2023 024 [email or web address] [facility] (Laboratory), [address] [place], [address], 05/26/2024 07:24:28 PSA, serum or plasma 2023 024 [facility] (Laboratory), [place], [address], 05/19/2024 17:26:16 hepatic function panel, serum 2023 024 [facility] (Laboratory), [place], [address], 05/19/2024 17:27:28 CMP, serum or plasma [address] (Laboratory), [place], [address], 05/08/2023 10:51:26 Referral None recorded. Procedures None recorded. Surgeries None recorded. Imaging XR, chest, 2 view [address] [facility], [address] [place] [address] [place], [address], 05/19/2024 14:11:58 XR, chest, 2 view 2022 023 [email or web address] [facility] (Radiology), [address], [place], [address], 05/08/2023 10:51:26 Medication Orders None recorded. Patient TargetsNo targets recorded. Patient InstructionsNo instructions recorded. Reason for Referral None Reported. Results Created Date Observation Date Name Description Value Unit Range Abnormal Flag Note LastModifiedBy Organization Detail LastModifiedTime 05/07/2005/07/2023 COMP METAB OLIC PANEL sodium 136 mmol/ L 136-14 5 Not Available [facility] (Lab Registration) [address], [place], [address], 05/07/2023 17:04:33 05/07/2005/07/2023 COMP METAB OLIC PANEL potassium 5.0 mmol/ L 3.5-5. 1 Not Available [facility] (Lab Registration) [address], [place], [address], 05/07/2023 17:04:33 05/07/2005/07/2023 COMP METAB OLIC PANEL chloride 99 mmol/ L 98-107 Not Available [facility] (Lab Registration) [address] [place], [address], 05/07/2023 17:04:33 05/07/2005/07/2023 COMP METAB OLIC PANEL carbon dioxide 29 mmol/ L 21-32 Not Available [facility] (Lab Registration) [address] [place], [address], 05/07/2023 17:04:33 05/07/2005/07/2023 COMP METAB OLIC PANEL anion gap 8.0 Not Available [facility] (Lab Registration) [address] [place], [address], 05/07/2023 17:04:33 10/11/20 23 05/07/2023 COMP METAB OLIC PANEL glucose 110 mg/dL 70-110 Not Available [facility] (Lab Registration) [address] [place], [address], 05/07/2023 17:04:33 05/07/20 23 05/07/2023 COMP METAB OLIC PANEL blood urea nitrogen 18 mg/dL 7-18 Not Available [facility] (Lab Registration) [address] [place], [address], 05/07/2023 17:04:33 05/07/20 23 05/07/2023 COMP METAB OLIC PANEL creatinine 1.1 mg/dL 0.8-1. 3 Not Available [facility] (Lab Registration) [address] [place], [address], 05/07/2023 17:04:33 05/07/20 23 05/07/2023 COMP METAB OLIC PANEL BUN/creatini ne ratio 16.4 ratio 9-21 Not Available [facility] (Lab Registration) [address] [place], [address], 05/07/2023 17:04:33 05/07/2005/07/2023 COMP METAB OLIC PANEL estimated glom filtration rate 70 mL/mi n >60- Not Available [facility] (Lab Registration) [address] [place], [address], 05/07/2023 17:04:33 05/07/20 23 05/07/2023 COMP METAB OLIC PANEL total protein 7.5 g/dL 6.4-8. 2 Not Available [facility] (Lab Registration) [address] [place], [address], 05/07/2023 17:04:33 05/07/20 23 05/07/2023 COMP METAB OLIC PANEL albumin 4.1 g/dL 3.4-5. 0 Not Available [facility] (Lab Registration) [address] [place], [address], 05/07/2023 17:04:33 05/07/20 23 05/07/2023 COMP METAB OLIC PANEL calcium 8.8 mg/dL 8.5-10 .1 Not Available [facility] (Lab Registration) [address], [place], [address], 05/07/2023 17:04:33 05/07/20 23 05/07/2023 COMP METAB OLIC PANEL corrected calcium 8.7 mg/dL 8.5-10 .1 Not Available [facility] (Lab Registration) [address], [place], [address], 05/07/2023 17:04:33 05/07/2005/07/2023 COMP METAB OLIC PANEL bilirubin total 0.4 mg/dL 0.4-1. 5 Not Available [facility] (Lab Registration) [address], [place], [address], 05/07/2023 17:04:33 05/07/2005/07/2023 COMP METAB OLIC PANEL AST (SGOT) 17 U/L 15-37 Not Available [facility] (Lab Registration) [address], [place], [address], 05/07/2023 17:04:33 05/07/2005/07/2023 COMP METAB OLIC PANEL ALT (SGPT) 39 U/L 12-78 Not Available [facility] (Lab Registration) [address] [place], [address], 05/07/2023 17:04:33 05/07/2005/07/2023 COMP METAB OLIC PANEL alk phosphatase 64 U/L Not Available [facility] (Lab Registration) [address] [place], [address], 05/07/2023 17:04:33 05/07/20 23 05/07/2023 COMP METAB OLIC PANEL note Unles s other centeno noted testi ng perfo rmed at: [facility] [address] [place] [address] [phone] Damian perera MD CLIA: [id number] Not Available [facility] (Lab Registration) [address], [place], [address], 05/07/2023 17:04:33 05/19/2005/19/2024 PROST ATE SPECI FIC AG (PSA) prostate specific Ag (PSA) 0.59 NG/mL 0.0-4. 0 Not Available [facility] (Lab Registration) [address], [place], [address], 05/19/2024 17:26:16 05/19/2005/19/2024 PROST ATE SPECI FIC AG (PSA) note Unles s other centeno noted testi ng perfo rmed at: [facility] [address] [place] [address] [phone] Damian perera MD CLIA: [id number] Not Available [facility] (Lab Registration) [address], [place], [address], 05/19/2024 17:26:16 05/19/2005/19/2024 BASIC METAB OLIC PANEL sodium 133 mmol/ L 136-14 5 low Not Available [facility] (Lab Registration) [address] [place], [address], 05/19/2024 17:27:23 05/19/2005/19/2024 BASIC METAB OLIC PANEL potassium 4.6 mmol/ L 3.5-5. 1 Not Available [facility] (Lab Registration) [address] [place], [address], 05/19/2024 17:27:23 05/19/2005/19/2024 BASIC METAB OLIC PANEL chloride 97 mmol/ L 98-107 low Not Available [facility] (Lab Registration) [address] [place], [address], 05/19/2024 17:27:23 05/19/2005/19/2024 BASIC METAB OLIC PANEL carbon dioxide 30 mmol/ L 21-32 Not Available [facility] (Lab Registration) [address], [place], [address], 05/19/2024 17:27:23 05/19/2005/19/2024 BASIC METAB OLIC PANEL anion gap 6.0 Not Available [facility] (Lab Registration) [address], [place], [address], 05/19/2024 17:27:23 05/19/2005/19/2024 BASIC METAB OLIC PANEL glucose 115 mg/dL 70-110 high Not Available [facility] (Lab Registration) [address], [place], [address], 05/19/2024 17:27:23 05/19/2005/19/2024 BASIC METAB OLIC PANEL blood urea nitrogen 19 mg/dL 7-18 high Not Available [facility] (Lab Registration) [address], [place], [address], 05/19/2024 17:27:23 05/19/2005/19/2024 BASIC METAB OLIC PANEL creatinine 1.2 mg/dL 0.8-1. 3 Not Available [facility] (Lab Registration) [address], [place], [address], 05/19/2024 17:27:23 05/19/2005/19/2024 BASIC METAB OLIC PANEL BUN/creatini ne ratio 15.8 9-21 Not Available [facility] (Lab Registration) [address] [place], [address], 05/19/2024 17:27:23 05/19/2005/19/2024 BASIC METAB OLIC PANEL [...] (Lab Registration) [address], [place], [address], 05/19/2024 17:27:23 05/19/2005/19/2024 BASIC METAB OLIC PANEL calcium 9.0 mg/dL 8.5-10 .1 Not Available [facility] (Lab Registration) [address], [place], [address], 05/19/2024 17:27:23 05/19/2005/19/2024 BASIC METAB OLIC PANEL note Unles s other centeno noted testi ng perfo rmed at: [facility] [address] [place] [address] [phone] Damian perera MD CLIA: [id number] Not Available [facility] (Lab Registration) [address], [place], [address], 05/19/2024 17:27:23 05/19/20 24 05/19/2024 HEPAT IC FUNCT ION PANEL total protein 7.2 g/dL 6.4-8. 2 Not Available [facility] (Lab Registration) [address] [place], [address], 05/19/2024 17:27:28 05/19/2005/19/2024 HEPAT IC FUNCT ION PANEL albumin 3.8 g/dL 3.4-5. 0 Not Available [facility] (Lab Registration) [address] [place], [address], 05/19/2024 17:27:28 05/19/20 24 05/19/2024 HEPAT IC FUNCT ION PANEL bilirubin direct 0.1 mg/dL 0.0-0. 3 Not Available [facility] (Lab Registration) [address] [place], [address], 05/19/2024 17:27:28 05/19/2005/19/2024 HEPAT IC FUNCT ION PANEL bilirubin total 0.3 mg/dL 0.4-1. 5 low Not Available [facility] (Lab Registration) [address] [place], [address], 05/19/2024 17:27:28 05/19/2005/19/2024 HEPAT IC FUNCT ION PANEL AST (SGOT) 14 U/L 15-37 low Not Available [facility] (Lab Registration) [address] [place], [address], 05/19/2024 17:27:28 05/19/20 24 05/19/2024 HEPAT IC FUNCT ION PANEL ALT (SGPT) 32 U/L 12-78 Not Available [facility] (Lab Registration) [address] [place], [address], 05/19/2024 17:27:28 05/19/2005/19/2024 HEPAT IC FUNCT ION PANEL alk phosphatase 58 U/L Not Available [facility] (Lab Registration) [address] [place], [address], 05/19/2024 17:27:28 05/19/2005/19/2024 HEPAT IC FUNCT ION PANEL note Unles s other centeno noted testi ng perfo rmed at: [facility] [address] [employer] [facility] [place], [place] [id number] [phone] Damian perera MD CLIA: [id number] Not Available [facility] (Lab Registration) [address] [place], [address], 05/19/2024 17:27:28 05/07/2005/07/2023 XR, chest , 2 view [facility] [address] [place] [address] Phone: Fax: Name: ANGELLA SAUL Exam Date: 2022 : [birth year] Age 72 years Gender : M Access ion: [id number] Physic ivana: SAV CALI [facility]ili [facility] Facili ty HSV: Outpat ient Exam: [...] you for referr ing ANGELLA SAUL to [facility] ity Hospit al. Legall y authen ticate d by POPE LIZZETTE Duggan DO 2022-07 0- 11:49: 18 CC'ed Logic: Orderi ng Provid er: LAURA Gonzales CC Provid er: DEMARCO ROACH Attend ing Provid er: LAURA Gonzales Referr ing Provid er: LAURA Gonzales Admitt ing Provid er: LAURA Gonzales [email or web address] [facility] (Radiology) [address] [place], [address], 05/08/2023 16:03:23 05/19/20 24 05/19/2024 XR, chest , 2 view [facility] [address] [place] [address] Phone: Fax: Name: ANGELLA SAUL Exam Date: 2023 : [birth year] Age 73 years Gender : M Access ion: [id number] Physic ivana: SAV CALI Facili ty: [facility] Facili ty HSV: Outpat ient Exam: [...] you for referr ing ANGELLA SAUL to [facility] Hospit [facility]. Legall y authen ticate d by MICHEAL Ravi III, MD 2023- 10:53: 56 CC'ed Logic: Orderi ng Provid er: LAURA Gonzales CC Provid er: DEMARCO ROACH Attend ing Provid er: LAURA Gonzales Referr ing Provid er: LAURA Gonzales Admitt ing Provid er: LAURA Gonzales [facility] (Radiology) [address], [place], [address], 08/13/2024 15:59:17 Result Notes None recorded. Procedures Surgical History None recorded. Imaging Results Imaging Date Name Status LastModified by Organiz ation Details LastModified Time 05/07/2023 XR, chest, 2 view completed [email or web address] [facility] (Radiology) [address], [place], [address], 05/08/2023 16:03:23 05/19/2024 XR, chest, 2 view completed [email or web address] [facility] (Radiology) [address], [place], [address], 08/13/2024 15:59:17 Procedure Notes None recorded. Medical Equipment None Reported. Allergies Allergen ID Allergen Name Allergen Category Reaction Reaction Severity Criticality Documentation Date Start Date Code Code System Note Provider Name and Address Organization Details Recorded Time 18310 azithromy debora medicatio n Not available Not available Not available 05/02/2023 26656 RxNorm [facility] [place] [facility] [place] & [place] 15:07:46 Medications Name Sig Start Date Stop [...] Updated DateTime 05/07/2023 177.8 cm 35.9 kg/m2 619464.09 g 98 [degF] Cynthia Resendezgett CECILE [facility] & [place] 05/07/2023 09:38:34 Date Recorded Body height Body mass index (BMI) Body weight Provider Name and Address Organization Details Last Updated DateTime 05/19/2024 177.8 cm 35.9 kg/m2 697702.09 g Cynthia Resendezgett CECILE [facility] [place] 05/19/2024 09:37:19 Social History None recorded. Functional Status Question Answer Note LastModified by Organization D etails LastModified Time What is your level of alcohol consumption? None Information not available 05/02/2023 Mental Status None recorded. Family History Nothing Reported. Medical History No medical history recorded. Past Encounters Encounter ID Performer Location Encounter Start Date Encounter Closed Date Diagnosis/Indication Diagnosis SNOMED-CT Code Diagnosis ICD10 Code Diagnosis Note [id number] Carson Cali Jr, MD [facility] [place] [phone] 05/07/2023 08:49:26 05/07/2023 10:03:28 Renal cell carcinoma 207335082 C64.9 Patient with history of renal cell carcinoma status post left open nephrectom y in February 2018. Surveillan ce labs today. Chest x-ray as well. Nocturia 640178763 R35.1 patient with history of nocturia. He admittedly has some sleep apnea and sleeping issues. We discussed melatonin to help with some sleep. He is not responded to alpha blockers in the past. [id number] Carson Cali Jr, MD [facility] [address] [phone] 05/19/2024 09:34:11 05/19/2024 10:07:01 Renal cell carcinoma [id number] C64.9 Patient with history of renal cell carcinoma status post left open nephrectom y in February 2018. Surveillan ce labs today. Chest x-ray as well. Nocturia 802934988 R35.1 patient with history of nocturia. He [...] 05/19/2024 2 [employer] (MEDICARE SUPPLEMENT) Angella Auguste [id number] Angella Auguste 05/19/2024 1 MED[place] ([place]ICARE[place] Angella Auguste [id number] Angella Auguste Notes Date Note Type Note Provider Name and Address Organization Details Recorded Time 05/07/2023 text/html Patient is a 72-year-old white male with a history of renal cell carcinoma status post a left open nephrectomy in February 2018 by myself. He was previously seen at [facility] and transferred care to [facility] today. His last visit was April 25, 2022. Previous surveillance studies have indicated a creatinine of 1.2 and normal liver functions. His PSA a year ago was normal at 0.4. Patient continues to have some nocturia at night. He is tried Flomax without help. Admittedly has some sleeping issues. Carson Cali Jr, MD [address] [place] [address], [address], [address], [facility] & [place] 05/07/2023 15:19:47 05/19/2024 text/html Patient is a [...] 3-4 times however. Carson Cali Jr, MD [address] [place] [address], [address], [address], [facility] & [place] 05/19/2024 12:06:43
[2024-12-16] MEDS: KETOROLAC 30MG/ML VIAL 15 MG IM (16:32)
[2024-12-16] MEDS: DEXAMETHASONE 4MG/ML 1ML VIAL 10 MG IM (16:32)
[2024-12-16 16:55] VITALS: BP 123/98; PULSE 93; RESP 18; TEMP 36.9; O2SAT 97
== END 2024-12-16 16:56 | disposition home or self-care (01) ==
PROVIDERS: Emergency Provider Emergency Medicine; PCP Family Medicine
DX: G50.0 Trigeminal neuralgia (principal); R68.84 Jaw pain; I10 Essential (primary) hypertension; Z85.528 Personal history of other malignant neoplasm of kidney
CPT/HCPCS: 96372; 99283; J1100; J1885

== ENCOUNTER 2025-01-12 14:23 | Outpatient (POV) | payer MEDICARE, OTHER, SELFPAY ==
--- OUTSIDE RECORDS SUMMARY | 2025-01-12 14:26 | XMS_ITS | Data Portability ---
Author Organization [facility] Address [address] [place] [address] Assessment No assessment recorded. Plan of Treatment Reminders Order Date Submit Date Provider Last Modified By Organization Details Last Modified Time Details Appointments OV EST 15 2024 09:45A M Jeronimo Cali Jr, MD Not available Not available Not available Lab BMP, blood 2023 024 [email or web address] [facility] (Laboratory), [address] [place], [address], 05/26/2024 07:24:28 PSA, serum or plasma 2023 024 [facility] (Laboratory), [place], [address], 05/19/2024 17:26:16 hepatic function panel, serum 2023 024 [facility] (Laboratory), [place], [address], 05/19/2024 17:27:28 CMP, serum or plasma [address] (Laboratory), [place], [address], 05/08/2023 10:51:26 Referral None recorded. Procedures None recorded. Surgeries None recorded. Imaging XR, chest, 2 view [address] [facility], [address] [place] [address] [place], [address], 05/19/2024 14:11:58 XR, chest, 2 view 2022 023 [email or web address] [facility] (Radiology), [address], [place], [address], 05/08/2023 10:51:26 Medication Orders None recorded. Patient TargetsNo targets recorded. Patient InstructionsNo instructions recorded. Reason for Referral None Reported. Results Created Date Observation Date Name Description Value Unit Range Abnormal Flag Note LastModifiedBy Organization Detail LastModifiedTime 05/07/2005/07/2023 COMP METAB OLIC PANEL sodium 136 mmol/ L 136-14 5 Not Available [facility] (Lab Registration) [address], [place], [address], 05/07/2023 17:04:33 05/07/2005/07/2023 COMP METAB OLIC PANEL potassium 5.0 mmol/ L 3.5-5. 1 Not Available [facility] (Lab Registration) [address], [place], [address], 05/07/2023 17:04:33 05/07/2005/07/2023 COMP METAB OLIC PANEL chloride 99 mmol/ L 98-107 Not Available [facility] (Lab Registration) [address] [place], [address], 05/07/2023 17:04:33 05/07/2005/07/2023 COMP METAB OLIC PANEL carbon dioxide 29 mmol/ L 21-32 Not Available [facility] (Lab Registration) [address] [place], [address], 05/07/2023 17:04:33 05/07/2005/07/2023 COMP METAB OLIC PANEL anion gap 8.0 Not Available [facility] (Lab Registration) [address] [place], [address], 05/07/2023 17:04:33 10/11/20 23 05/07/2023 COMP METAB OLIC PANEL glucose 110 mg/dL 70-110 Not Available [facility] (Lab Registration) [address] [place], [address], 05/07/2023 17:04:33 05/07/20 23 05/07/2023 COMP METAB OLIC PANEL blood urea nitrogen 18 mg/dL 7-18 Not Available [facility] (Lab Registration) [address] [place], [address], 05/07/2023 17:04:33 05/07/20 23 05/07/2023 COMP METAB OLIC PANEL creatinine 1.1 mg/dL 0.8-1. 3 Not Available [facility] (Lab Registration) [address] [place], [address], 05/07/2023 17:04:33 05/07/20 23 05/07/2023 COMP METAB OLIC PANEL BUN/creatini ne ratio 16.4 ratio 9-21 Not Available [facility] (Lab Registration) [address] [place], [address], 05/07/2023 17:04:33 05/07/2005/07/2023 COMP METAB OLIC PANEL estimated glom filtration rate 70 mL/mi n >60- Not Available [facility] (Lab Registration) [address] [place], [address], 05/07/2023 17:04:33 05/07/20 23 05/07/2023 COMP METAB OLIC PANEL total protein 7.5 g/dL 6.4-8. 2 Not Available [facility] (Lab Registration) [address] [place], [address], 05/07/2023 17:04:33 05/07/20 23 05/07/2023 COMP METAB OLIC PANEL albumin 4.1 g/dL 3.4-5. 0 Not Available [facility] (Lab Registration) [address] [place], [address], 05/07/2023 17:04:33 05/07/20 23 05/07/2023 COMP METAB OLIC PANEL calcium 8.8 mg/dL 8.5-10 .1 Not Available [facility] (Lab Registration) [address], [place], [address], 05/07/2023 17:04:33 05/07/20 23 05/07/2023 COMP METAB OLIC PANEL corrected calcium 8.7 mg/dL 8.5-10 .1 Not Available [facility] (Lab Registration) [address], [place], [address], 05/07/2023 17:04:33 05/07/2005/07/2023 COMP METAB OLIC PANEL bilirubin total 0.4 mg/dL 0.4-1. 5 Not Available [facility] (Lab Registration) [address], [place], [address], 05/07/2023 17:04:33 05/07/2005/07/2023 COMP METAB OLIC PANEL AST (SGOT) 17 U/L 15-37 Not Available [facility] (Lab Registration) [address], [place], [address], 05/07/2023 17:04:33 05/07/2005/07/2023 COMP METAB OLIC PANEL ALT (SGPT) 39 U/L 12-78 Not Available [facility] (Lab Registration) [address] [place], [address], 05/07/2023 17:04:33 05/07/2005/07/2023 COMP METAB OLIC PANEL alk phosphatase 64 U/L Not Available [facility] (Lab Registration) [address] [place], [address], 05/07/2023 17:04:33 05/07/20 23 05/07/2023 COMP METAB OLIC PANEL note Unles s other centeno noted testi ng perfo rmed at: [facility] [address] [place] [address] [phone] Damian perera MD CLIA: [id number] Not Available [facility] (Lab Registration) [address], [place], [address], 05/07/2023 17:04:33 05/19/2005/19/2024 PROST ATE SPECI FIC AG (PSA) prostate specific Ag (PSA) 0.59 NG/mL 0.0-4. 0 Not Available [facility] (Lab Registration) [address], [place], [address], 05/19/2024 17:26:16 05/19/2005/19/2024 PROST ATE SPECI FIC AG (PSA) note Unles s other centeno noted testi ng perfo rmed at: [facility] [address] [place] [address] [phone] Damian perera MD CLIA: [id number] Not Available [facility] (Lab Registration) [address], [place], [address], 05/19/2024 17:26:16 05/19/2005/19/2024 BASIC METAB OLIC PANEL sodium 133 mmol/ L 136-14 5 low Not Available [facility] (Lab Registration) [address] [place], [address], 05/19/2024 17:27:23 05/19/2005/19/2024 BASIC METAB OLIC PANEL potassium 4.6 mmol/ L 3.5-5. 1 Not Available [facility] (Lab Registration) [address] [place], [address], 05/19/2024 17:27:23 05/19/2005/19/2024 BASIC METAB OLIC PANEL chloride 97 mmol/ L 98-107 low Not Available [facility] (Lab Registration) [address] [place], [address], 05/19/2024 17:27:23 05/19/2005/19/2024 BASIC METAB OLIC PANEL carbon dioxide 30 mmol/ L 21-32 Not Available [facility] (Lab Registration) [address], [place], [address], 05/19/2024 17:27:23 05/19/2005/19/2024 BASIC METAB OLIC PANEL anion gap 6.0 Not Available [facility] (Lab Registration) [address], [place], [address], 05/19/2024 17:27:23 05/19/2005/19/2024 BASIC METAB OLIC PANEL glucose 115 mg/dL 70-110 high Not Available [facility] (Lab Registration) [address], [place], [address], 05/19/2024 17:27:23 05/19/2005/19/2024 BASIC METAB OLIC PANEL blood urea nitrogen 19 mg/dL 7-18 high Not Available [facility] (Lab Registration) [address], [place], [address], 05/19/2024 17:27:23 05/19/2005/19/2024 BASIC METAB OLIC PANEL creatinine 1.2 mg/dL 0.8-1. 3 Not Available [facility] (Lab Registration) [address], [place], [address], 05/19/2024 17:27:23 05/19/2005/19/2024 BASIC METAB OLIC PANEL BUN/creatini ne ratio 15.8 9-21 Not Available [facility] (Lab Registration) [address] [place], [address], 05/19/2024 17:27:23 05/19/2005/19/2024 BASIC METAB OLIC PANEL [...] parap legia or quadr ipleg ia, veget ksasi diet or rapid ly traylor ing kiney funct ion. Not Available [facility] (Lab Registration) [address], [place], [address], 05/19/2024 17:27:23 05/19/2005/19/2024 BASIC METAB OLIC PANEL calcium 9.0 mg/dL 8.5-10 .1 Not Available [facility] (Lab Registration) [address], [place], [address], 05/19/2024 17:27:23 05/19/2005/19/2024 BASIC METAB OLIC PANEL note Unles s other centeno noted testi ng perfo rmed at: [facility] [address] [place] [address] [phone] Damian perera MD CLIA: [id number] Not Available [facility] (Lab Registration) [address], [place], [address], 05/19/2024 17:27:23 05/19/20 24 05/19/2024 HEPAT IC FUNCT ION PANEL total protein 7.2 g/dL 6.4-8. 2 Not Available [facility] (Lab Registration) [address] [place], [address], 05/19/2024 17:27:28 05/19/2005/19/2024 HEPAT IC FUNCT ION PANEL albumin 3.8 g/dL 3.4-5. 0 Not Available [facility] (Lab Registration) [address] [place], [address], 05/19/2024 17:27:28 05/19/20 24 05/19/2024 HEPAT IC FUNCT ION PANEL bilirubin direct 0.1 mg/dL 0.0-0. 3 Not Available [facility] (Lab Registration) [address] [place], [address], 05/19/2024 17:27:28 05/19/2005/19/2024 HEPAT IC FUNCT ION PANEL bilirubin total 0.3 mg/dL 0.4-1. 5 low Not Available [facility] (Lab Registration) [address] [place], [address], 05/19/2024 17:27:28 05/19/2005/19/2024 HEPAT IC FUNCT ION PANEL AST (SGOT) 14 U/L 15-37 low Not Available [facility] (Lab Registration) [address] [place], [address], 05/19/2024 17:27:28 05/19/20 24 05/19/2024 HEPAT IC FUNCT ION PANEL ALT (SGPT) 32 U/L 12-78 Not Available [facility] (Lab Registration) [address] [place], [address], 05/19/2024 17:27:28 05/19/2005/19/2024 HEPAT IC FUNCT ION PANEL alk phosphatase 58 U/L Not Available [facility] (Lab Registration) [address] [place], [address], 05/19/2024 17:27:28 05/19/2005/19/2024 HEPAT IC FUNCT ION PANEL note Unles s other centeno noted testi ng perfo rmed at: [facility] [address] [employer] [place], [place] [address] [phone] Damian perera MD CLIA: [id number] Not Available [facility] (Lab Registration) [address] [place], [address], 05/19/2024 17:27:28 05/07/2005/07/2023 XR, chest , 2 view [facility] [address] [place] [address] Phone: Fax: Name: ANGELLA SAUL Exam Date: 2022 : [birth year] Age 72 years Gender : M Access ion: [id number] Physic ivana: SAV CALI Facili ty: [facility] Facili ty HSV: Outpat ient Exam: CHEST [...] you for referr ing ANGELLA SAUL to [facility] Hospit [facility]. Legall y authen ticate d by POPE LIZZETTE Duggan DO 2022-07 0- 11:49: 18 CC'ed Logic: Orderi ng Provid er: LAURA Gonzales CC Provid er: DEMARCO ROACH Attend ing Provid er: LAURA Gonzales Referr ing Provid er: LAURA Gonzales Admitt ing Provid er: LAURA Gonzales [email or web address] [facility] (Radiology) [address] [place], [address], 05/08/2023 16:03:23 05/19/20 24 05/19/2024 XR, chest , 2 view [facility] [address] [place] [address] Phone: Fax: Name: ANGELLA SAUL Exam Date: 2023 : [birth year] Age 73 years Gender : M Access ion: [id number] Physic ivana: SAV CALI Facili ty: [facility] Facili ty HSV: Outpat ient Exam: [...] you for referr ing ANGELLA SAUL to [facility]. Legall y authen ticate d by MICHEAL Ravi III, MD 2023- 10:53: 56 CC'ed Logic: Orderi ng Provid er: LAURA Gonzales CC Provid er: DEMARCO Giraldo ing Provid er: LAURA Gonzales Referr ing Provid er: LAURA Gonzales Admitt ing Provid er: LAURA Gonzales [email or web address] [facility] (Radiology) [address] [place] [address] [place], [address], 08/13/2024 15:59:17 Result Notes Documentation Provider Name and Address Organization Details Recorded Time Xr, Chest, 2 View : [address] [place] [address] Name: ANGELLA AUGUSTE Exam Date: 05/07/2023 : 1950 Age 72 years Gender: M Physician: JERONIMO CALI Facility: [facility] Facility HSV: Outpatient Exam: CHEST PA ^ LAT CHEST, 2 VIEWS HISTORY: Chest Pain COMPARISON: None FINDINGS: The heart and mediastinum are unremarkable. There is elevation of the left hemidiaphragm. There is evidence of prior calcified granulomatous disease. Chronic appearing changes are seen in the lungs. The lungs are otherwise clear without evidence of acute infiltrate or effusion. The bony structures are intact. IMPRESSION: No acute process. Images reviewed, interpreted and dictated by Dr. Holliday. Transcribed by Kalyan Wallcae PA-C Dictated By: LIZZETTE HOLLIDAY Transcribed By: LIZZETTE HOLLIDAY Transcribed On: 05/07/2023 11:49 AM Electronically signed by: LIZZETTE HOLLIDAY 05/07/2023 Thank you for referring ANGELLA AUGUSTE to [facility]. Legally authenticated by POPE LIZZETTE Duggan DO 2023-05-07 11:49:18 CC'ed Logic: Ordering Provider: LAURA DECKER CC Provider: DEMARCO ROACH Attending Provider: LAURA DECKER Referring Provider: LAURA DECKER Admitting Provider: LAURA Cali Jr, MD [address] [place] [address], [address], [place], [address] 05/08/2023 16:03:23 Xr, Chest, 2 View : [address] [place] [address] Name: ANGELLA AUGUSTE Exam Date: 05/19/2024 : 1950 Age 73 years Gender: M Physician: JERONIMO CALI Facility: [facility] Facility HSV: Outpatient Exam: CHEST PA ^ LAT EXAM DESCRIPTION: CHEST PA ^ LAT CLINICAL HISTORY: 73 years Male, renal ca COMPARISON: 05/07/2023 FINDINGS: Redemonstration of elevation left hemidiaphragm. The cardiomediastinal silhouette is unremarkable. Lungs are clear. IMPRESSION: Persistent elevation left hemidiaphragm. Electronically signed by: Harjit Landaverde MD 05/19/2024 11:00 AM EDT RP Dictated By: Harjit Landaverde Transcribed By: Transcribed On: 05/19/2024 10:53 AM Electronically signed by: Harjit Landaverde 05/19/2024 Thank you for referring ANGELLA AUGUSTE to [facility]. Legally authenticated by MICHEAL MENDEZ III, MD 2024-05-19 10:53:56 CC'ed Logic: Ordering Provider: LAURA DECKER CC Provider: DEMARCO ROACH Attending Provider: LAURA DECKER Referring Provider: LAURA DECKER Admitting Provider: CECILE Bermudez [facility] [place] 08/13/2024 15:59:17 Medical Equipment None Reported. Allergies Allergen ID Allergen Name Allergen Category Reaction Reaction Severity Criticality Documentation Date Start Date Code Code System Note Provider Name and Address Organization Details Recorded Time 62208 azithromy debora medicatio n Not available Not available Not available 05/02/2023 19264 RxNorm Lilashara hartman [place] [facility] [place] 15:07:46 Medications Name Sig Start Date Stop [...] Updated DateTime 05/07/2023 177.8 cm 35.9 kg/m2 260838.09 g 98 [degF] [facility] [place] 05/07/2023 09:38:34 Date Recorded Body height Body mass index (BMI) Body weight Provider Name and Address Organization Details Last Updated DateTime 05/19/2024 177.8 cm 35.9 kg/m2 790340.09 g [facility] [place] 05/19/2024 09:37:19 Social History None recorded. Functional Status Question Answer Note LastModified by Organization D etails LastModified Time What is your level of alcohol consumption? None [email or web address] Information not available 05/02/2023 Mental Status None recorded. Family History Nothing Reported. Medical History No medical history recorded. Past Encounters Encounter ID Performer Location Encounter Start Date Encounter Closed Date Diagnosis/Indication Diagnosis SNOMED-CT Code Diagnosis ICD10 Code Diagnosis Note [id number] [facility]onimo Cal[facility] Jr, [facility] [address] [address] 05/07/2023 08:49:26 05/07/2023 10:03:28 Renal cell carcinoma [id number] C64.9 Patient with history of renal cell carcinoma status post left open nephrectom y in February 2018. Surveillan ce labs today. Chest x-ray as well. Nocturia 509884117 R35.1 patient with history of nocturia. He admittedly has some sleep apnea and sleeping issues. We discussed melatonin to help with some sleep. He is not responded to alpha blockers in the past. [id number] Jeronimo Cali Jr, MD [facility] [address] [address] 05/19/2024 09:34:11 05/19/2024 10:07:01 Renal cell carcinoma [id number] C64.9 Patient with history of renal cell carcinoma status post left open nephrectom y in February 2018. Surveillan ce labs today. Chest x-ray as well. Nocturia [id number] R35.1 patient with history of nocturia. He [...] 05/19/2024 2 [employer] (MEDICARE SUPPLEMENT) Angella Auguste [id number] Angella Auguste 05/19/2024 1 [place] ([place]ICARE[place] Angella Auguste [id number] Angella Auguste Notes Date Note Type Note Provider Name and Address Organization Details Recorded Time 05/07/2023 text/html Patient is a 72-year-old white male with a history of renal cell carcinoma status post a left open nephrectomy in February 2018 by myself. He was previously seen at [facility] and transferred care to [facility] today. His last visit was April 25, 2022. Previous surveillance studies have indicated a creatinine of 1.2 and normal liver functions. His PSA a year ago was normal at 0.4. Patient continues to have some nocturia at night. He is tried Flomax without help. Admittedly has some sleeping issues. Jeronimo Cali Jr, MD [address] [place] [address], [address], [place], [address], [facility] [place] [facility] [place] 05/07/2023 15:19:47 05/19/2024 text/html Patient is a [...] gets up at night 3-4 times however. Jeronimo Cali Jr, MD [address] [place] [address] Drive, [address], [place], [address], [facility] [place] [facility] [place] 05/19/2024 12:06:43
--- NOTE | 2025-01-12 14:33 | EXP.PAIN.SOA ---
[facility] Disclaimer: The information contained in this section may have been updated after the patient was seen, as this information can be updated by other users. Medical History Facial pain History of ulcer disease History of neck pain History of varicose veins of lower extremity History of hyperlipidemia Trigeminal neuralgia of left side of face Left trigeminal neuralgia. Good response to carbamazepine 200 mg po bid but developed hyponatremia. Recurrent symptoms on oxacarbazepine 300 mg po bid most likely due to diuretic therapy, (hydrochlorothiazide 12.5, 2/3 times daily). History of hypertension Nocturia Renal cell cancer Surgical History History of nephrectomy, left Family History Other Cancer Coronary artery disease Emphysema of lung Social History Smoking Status: Never smoker smoking status stop date: 2015 alcohol intake: never substance use type: denies use current occupational status: other Travel in the last 8 weeks?: None household members: spouse housing: house marital status: number of children: 3 PM Subjective & Objective Subjective Subjective:: Patient is a pleasant 74-year-old male who presents today for 6-week follow-up. Today he rates his pain a 0out of 10. Patient denies any new trauma or injury. Patient from our last visit had gotten approval for a repeat trigeminal nerve block however he was also approved for a CyberKnife procedure the same day. Patient ended at waiting for the nerve block. He does state that he is really unsure whether or not if the cyber knife made a difference just yet. In all his research and what he was told by everyone that typically it normally takes about 4 weeks to notice improvement. It has only been 2 weeks. He does state at some point between our last visit he ended up having severe pain like he has never had before and went to the ER and ended up getting a steroid injection. He states it did ease down and he really has not had much more pain past that point. Patient is unsure whether it was a combination of other things that may have been playing a role. His Onel has been reviewed and is appropriate. Review of Systems: General: No recent weight changes, no fever, no sleep disturbances Respiratory: No cough, no shortness of air, no recurring pulmonary infections Cardiovascular/peripheral vascular: No chest pain, no palpitations, no edema, no shortness of breath Gastrointestinal: No new onset incontinence, normal bowel movements reported Genitourinary: No new onset incontinence Musculoskeletal: Facial pain Psychiatric: [Normal mood/affect] Neurological: [Denies weakness in extremities], [denies balance issues] Pain at rest (0-10 scale): 0 Objective Objective:: Physical Exam: General: Alert and oriented x3, no acute distress, pleasant and cooperative Lungs: Respirations even and unlabored, symmetrical chest expansion Eyes: PERRL Musculoskeletal: Flexion and extension of cervical spine within normal limits Neurological: Speech clear, no gross sensory deficit Has patient had previous pain injection?: No Conservative treatment options previously tried: Home exercise plan Length of treatment: Longer than 12 weeks Meds Home Medications and Allergies Home Medications ?Medication ?Instructions ?Recorded ?Confirmed ?Type atorvastatin 20 mg tablet 20 mg PO DAILY 06/19/24 12/15/24 History aspirin 81 mg tablet,delayed 81 mg PO DAILY 09/13/24 12/15/24 History release amlodipine 10 mg tablet 10 mg PO DAILY 12/14/24 12/15/24 History hydrochlorothiazide 12.5 mg tablet 12.5 mg PO ONCE 12/14/24 12/15/24 History losartan 50 mg tablet 50 mg PO DAILY 12/14/24 12/15/24 History oxcarbazepine 150 mg tablet 300 mg (2 x 150 mg) PO BID 12/21/24 Rx Trigeminal neuralgia #120 tabs New Prescriptions to Start Prescriptions: Allergies Allergy/AdvReac Type Severity Reaction Status Date / Time azithromycin (From ZITHROMAX) Allergy Mild Other Verified 12/14/24 08:05 Assessment and Plan *Assessment and plan (1) Trigeminal neuralgia: Problem Comment: Currently on oxcarbazepine 300 mg twice daily and awaiting appointment with pain management and follow-up with [facility]. Status: Chronic Category: Medical Code(s): G50.0 - Trigeminal neuralgia Plan Patient is doing well currently and does not require any additional intervention at this time. Patient will return to clinic in 6 weeks for reevaluation of symptoms and plan of care. Patient has been instructed to contact the clinic with any concerns before the next appointment. Dr. Ndiaye has reviewed this note and agrees with this plan of care. This note was dictated using voice recognition software and make contain errors or omissions. All injections are used with Lidocaine, Bupivacaine and dexamethasone. Occasionally urine drug screen is needed to verify patient's compliance with our office pain contract. This is ordered based off specific treatments related to chronic pain with the potential to abuse certain medications.
[2025-01-12 15:08] VITALS: BP 124/79; PULSE 92; RESP 18; O2SAT 97; BMI 34.7
== END 2025-01-12 23:59 | disposition home or self-care (01) ==
LOC: SC.PAIN 14:25
PROVIDERS: PCP Family Medicine; Visit Provider Nurse Practitioner Family
DX: G50.0 Trigeminal neuralgia (principal); Z79.899 Other long term (current) drug therapy
CPT/HCPCS: 99212; G0463

== ENCOUNTER 2025-02-17 19:37 | Emergency (ER) | payer MEDICARE, OTHER, SELFPAY ==
--- OUTSIDE RECORDS SUMMARY | 2024-12-03 05:10 | XMS_ITS | Encounter Summary ---
Author Organization [facility] Address [address] [place] [address] Care Team Providers Care Spinning Mule Operator Name Role Phone Shaji Mehta MD Primary Care Provider [phone] Reason for Visit * Auth/Cert (Routine) Specialty Diagnoses / Procedures Referred By Bandar t Referred To Contact Referral ID Status Reason Start Date Expiration Date Visits Re quested Visits Authorized [id number] 1 1 Encounter Details Date Type Department Care Team (Late st Contact Info) Description 12/03/2024 5:10 AM EDT Hospital Encounter [facility] ON[facility] [address] [address] Social History Tobacco Use Types Packs/Day Years Used Date Smoking Tobacco: Former Cigarettes Q uit: 09/04/2011 Passive Smoke Exposure: Past Smokeless Tobacco: [...] AM EDT documented as of this encounter Functional Status documented as of this encounter Plan of Treatment Upcoming Encounters Date Type Department Care Team (Late st Contact Info) Description 02/24/2025 9:15 AM EDT Office Visit [facility] CARDIOLOGY [address] [place] [address] Ever Lundberg III, MD [address] [facility] [address] [place] [address] documented as of this encounter Visit Diagnoses Not on filedocumented in this encounter Care Teams Spinning Mule Operator Relationship Specialty Start Date End Date Shaji Mehta MD [address] [place] [address] PCP - General Family Medicine 08/06/16 documented as of this encounter
--- OUTSIDE RECORDS SUMMARY | 2024-12-27 08:06 | XMS_ITS | Encounter Summary ---
Author Organization [facility] Address [address] [place] [address] Care Team Providers Care Telephone Collector Name Role Phone Shaji Mehta MD Primary Care Provider [phone] Reason for Visit * Auth/Cert (Routine) Specialty Diagnoses / Procedures Referred By Bandar t Referred To Contact Referral ID Status Reason Start Date Expiration Date Visits Re quested Visits Authorized [id number] 1 1 Encounter Details Date Type Department Care Team (Latest Contact Info) Description 12/27/2024 8:06 AM EDT - 12/27/2024 11:59 PM EDT Hospital Encounter [facility] [address] [facility] [address] [place] [phone] Discharge Disposition: Home or Self Care Social History Tobacco Use Types Packs/Day Years [...] AM EDT documented as of this encounter Medications at Time of Discharge aspirin 81 MG EC tablet Take 1 tablet by mouth Daily. atorvastatin (LIPITOR) 20 MG tablet Take 1 tablet by mouth Daily. coenzyme Q10 100 MG capsule Take 1 capsule by mouth Daily. losartan (COZAAR) 50 MG tablet Take 1 tablet by mouth Every Morning. 90 tablet 1 12/01/2024 metFORMIN (GLUCOPHAGE) 500 MG tablet Take 1 tablet by mouth 2 (Two) Times a Day With Meals. OXcarbazepine (TRILEPTAL) 150 MG tablet Take 2 tablets by mouth 2 (Two) Times a Day. 11/04/2024 amLODIPine (NORVASC) 10 MG tablet Take 1 tablet by mouth every night at bedtime. 90 tablet 3 11/10/2024 01/20/2025 baclofen (LIORESAL) 10 MG tablet Take 2 tablets by mouth Every Night. 11/08/2024 02/16/2025 hydroCHLOROthiazi de 12.5 MG tablet Take 1 tablet by mouth Daily. 10/05/2024 02/16/2025 documented as of this encounter Plan of Treatment Upcoming Encounters Date Type Department Care Team (Late st Contact Info) Description 02/24/2025 9:15 AM EDT Office [address] [facility] [address] [place] [phone] Ever Lundberg III, MD [address] [place] [address] documented as of this encounter Visit Diagnoses Not on filedocumented in this encounter Care Teams Telephone Collector Relationship Specialty Start Date End Date Shaji Mehta MD [address] [place], [place] [id number] PCP - General Family Medicine 08/06/16 documented as of this encounter
--- OUTSIDE RECORDS SUMMARY | 2024-12-31 11:10 | XMS_ITS | Encounter Summary ---
Author Organization [facility] Address [address] [place] [address] Care Team Providers Care Analyst Food [employer] Bever[employer] Name Role Phone Shaji Mehta MD Primary Care Provider [phone] Encounter Details Date Type Department Care Team (Latest Contact Info) Description 12/31/2024 11:10 AM EDT - 12/31/2024 11:59 PM EDT Hospital Encounter [facility] [address] [facility] [address] [place] [phone] Discharge Disposition: Home or Self Care Social [...] Description 02/24/2025 9:15 AM EDT Office Visit [facility] [address] [facility] [address] [place] [address] Ever Lundberg III, MD [address] [place] [address] documented as of this encounter Visit Diagnoses Not on filedocumented in this encounter Care Teams Analyst Food And Beverage Relationship Specialty Start Date End Date Shaji Mehta MD [address] [place] [address] PCP - General Family Medicine 08/06/16 documented as of this encounter
--- OUTSIDE RECORDS SUMMARY | 2025-01-21 07:46 | XMS_ITS | Encounter Summary ---
[facility] Address [address] [place] [address] Care Team Providers Care Flying I Instructor Name Role Phone Shaji Mehta MD Primary Care Provider [phone] Reason for Referral * Diagnostic Imaging (Routine) - Closed Specialty Diagnoses / Procedures Referred By Contac t Referred To Contact Diagnoses Resistant hypertension Essential (primary) hypertension Procedures Duplex Renal Artery - Bilateral Complete CAR Ever Lundberg III, MD [address] [place] [address] Phone: tel: fax: [address] [address] Phone: tel: Referral ID Status Reason Start Date Expiration Date Visits Re quested Visits Authorized [id number] Closed 11/10/2024 02/09/2026 1 1 Reason for Visit * Diagnostic Imaging (Routine) - Closed Specialty Diagnoses / Procedures Referred By Contac t Referred To Contact Diagnoses Resistant hypertension Essential (primary) hypertension Procedures Duplex Renal Artery - Bilateral Complete CAR Ever Lundberg III, MD [address] [place] [address] Phone: tel: fax: [facility] [address] [place] [phone] Phone: tel: Referral ID Status Reason Start Date Expiration Date Visits Re quested Visits Authorized [id number] Closed 11/10/2024 02/09/2026 1 1 Encounter Details Date Type Department Care Team (Latest Contact Info) Description 01/21/2025 7:46 AM EDT - 01/21/2025 11:59 PM EDT Hospital Encounter [facility] [address] [place] [address] Resistant hypertension; Essential (primary) hypertension Discharge Disposition: Home or Self Care Social [...] this encounter Medications at Time of Discharge amLODIPine (NORVASC) 10 MG tablet Take 1 tablet by mouth every night at bedtime. 90 tablet 1 01/20/2025 aspirin 81 MG EC tablet Take 1 [...] mouth 2 (Two) Times a Day. 11/04/2024 baclofen (LIORESAL) 10 MG tablet Take 2 tablets by mouth Every Night. 11/08/2024 02/16/2025 hydroCHLOROthiazi de 12.5 MG tablet Take 1 tablet by mouth Daily. 10/05/2024 02/16/2025 documented as of this encounter Plan of Treatment Upcoming Encounters Date Type Department Care Team (Late st Contact Info) Description 02/24/2025 9:15 AM EDT Office Visit [facility] [address] [place] [phone] Ever Lundberg III, MD [address] [place] [address] documented as of this encounter Procedures Procedure Name Priority Date/Time Associated Diagnosis Comments DUPLEX RENAL ARTERY BILATERAL COMPLETE CAR Routine 01/21/2025 8:24 AM EDT Resistant hypertension Essential (primary) hypertension documented in this encounter Results * Duplex Renal Artery - Bilateral Complete CAR (01/21/2025 8:24 AM EDT) KID L RIGHT 11.3 cm RENAL A ORG PSV RIGHT 72.9 cm/s RENAL A ORG EDV RIGHT 30.9 cm/s PROX TIESHA A PSV RIGHT 125.6 cm/s PROX TIESHA A EDV RIGHT 46.8 cm/s MID TIESHA A PSV RIGHT 119.1 cm/s MID TIESHA A EDV RIGHT 43.5 cm/s DIST TIESHA A PSV RIGHT 92.6 cm/s DIST TIESHA A EDV RIGHT 34.3 cm/s Hilum Right PSV 93.3 cm/s Hilum Right EDV 29.9 cm/s Aortic Mid PSV 78.4 cm/s Aortic Mid EDV 13.1 cm/s RAR RIGHT 1.60 Anatomical Region Laterality Modality Vascular, Abdomen Ultrasound Narrative 01/21/2025 7:05 PM EDT Right Renal Conclusions: The right kidney is normal in size. There is no evidence for right renal artery occlusive disease. Right renal perfusion resistance is normal. Left Renal Conclusions: Imaging of the left kidney was not performed. History of left Nephrectomy. Study Impression Right Renal Conclusions: The right kidney is normal in size. There is no evidence for right renal artery occlusive disease. Right renal perfusion resistance is normal. Study Findings Right Kidney Findings: Imaging of the right kidney was performed. No right renal cysts were noted. The right renal vein is patent. Ao Prox AP: 1.61 cm Upper RI: 0.56 Mid RI: 0.63 Lower RI: 0.68 Hilum AT : 85 ms. Left Kidney Findings: Imaging of the left kidney was not performed. History of left Nephrectomy.. Additional Study Details The study is technically good for diagnosis. us Ever Lundberg III, MD CV VASCULAR ORDERABLES Camilla l Result documented in this encounter Visit Diagnoses Diagnosis Resistant hypertension Essential (primary) hypertension Unspecified essential hypertension documented in this encounter Care Teams Flying I Instructor Relationship Specialty Start Date End Date Shaji Mehta MD [address] [place] [address] PCP - General Family Medicine 08/06/16 documented as of this encounter
--- OUTSIDE RECORDS SUMMARY | 2025-01-21 07:53 | XMS_ITS | Encounter Summary ---
[facility] Address [address] [place] [address] Care Team Providers Care Side Panel Hanger Name Role Phone Shaji Mehta MD Primary Care Provider [phone] Reason for Referral * Diagnostic Imaging (Routine) - Closed Specialty Diagnoses / Procedures Referred By Contac t Referred To Contact Diagnoses Dyspnea on exertion Procedures Adult Transthoracic Echo Complete W/ Cont if Necessary Per Protocol Ever Lundberg III, MD [address] [place] [address] Phone: tel: fax: [address] [address] Phone: tel: Referral ID Status Reason Start Date Expiration Date Visits Re quested Visits Authorized [id number] Closed 11/10/2024 02/09/2026 1 1 Reason for Visit * Diagnostic Imaging (Routine) - Closed Specialty Diagnoses / Procedures Referred By Contac t Referred To Contact Diagnoses Dyspnea on exertion Procedures Adult Transthoracic Echo Complete W/ Cont if Necessary Per Protocol Ever Lundberg III, MD [address] [place] [address] Phone: tel: fax: [address] [phone] Phone: tel: Referral ID Status Reason Start Date Expiration Date Visits Re quested Visits Authorized [id number] Closed 11/10/2024 02/09/2026 1 1 Encounter Details Date Type Department Care Team (Latest Contact Info) Description 01/21/2025 7:53 AM EDT - 01/21/2025 11:59 PM EDT Hospital Encounter [facility] [address] [place] [address] Dyspnea on exertion Discharge Disposition: Home or Self Care Social [...] AM EDT documented as of this encounter Last Filed Vital Signs Vital Sign Reading Time Taken Comments Blood Pressure 123/80 01/21/2025 9:26 AM EDT Pulse - - Temperature - - Respiratory Rate - - Oxygen Saturation - - Inhaled Oxygen Concentration - - Weight 109 kg (240 lb 4.8 oz) 01/21/2025 9:26 AM EDT Height 177.9 cm (5' 10.04 ) 01/21/2025 9:26 AM E DT Body Mass Index 34.44 01/21/2025 9:26 AM EDT documented in this encounter Medications at Time of Discharge [...] Description 02/24/2025 9:15 AM EDT Office Visit [facility] CARDIOLOGY [address] [place] [phone] Ever Lundberg III, MD [address] [place] [address] documented as of this encounter Procedures Procedure Name Priority Date/Time Associated Diagnosis Comments ECHO COMPLETE W/ DOPPLER AND COLOR FLOW Routine 01/21/2025 9:26 AM EDT Dyspnea on exertion documented in this encounter Results * ECHO COMPLETE W/ DOPPLER AND COLOR FLOW (01/21/2025 9:26 AM EDT) LVIDd 2.5 cm LVIDs 1.80 cm IVSd 1.10 cm LVPWd 1.10 cm IVS/LVPW 1.00 cm LVOT area 3.4 cm2 LVOT diam 2.07 cm SVi (LVOT) 43.6 ml/m2 MV E max mauri 48.0 cm/sec MV A max mauri 74.3 cm/sec MV E/A 0.65 IVRT 87.0 ms LA ESV Index (BP) 25.7 ml/m2 Med Peak E' Mauri 9.5 cm/sec Lat Peak E' Mauri 9.8 cm/sec Avg E/e' ratio 4.97 SV(LVOT) 70.4 ml RV Base 3.3 cm RV Mid 3.0 cm RV Length 6.9 cm TAPSE (>1.6) 2.12 cm RV S' 13.8 cm/sec LA dimension (2D) 2.30 cm LV V1 max 115.9 cm/sec LV V1 max PG 5.4 mmHg LV V1 mean PG 2.20 mmHg LV V1 VTI 21.0 cm Ao pk mauri 129.5 cm/sec Ao max PG 6.7 mmHg Ao mean PG 3.1 mmHg Ao V2 VTI 22.2 cm BHARAT(I,D) 3.2 cm2 Dimensionless Index 0.95 (DI) MV max PG 3.8 mmHg MV mean PG 2.30 mmHg MV V2 VTI 24.8 cm MV P1/2t 78.5 msec MVA(P1/2t) 2.8 cm2 MVA(VTI) 2.8 cm2 MV dec slope 337.2 cm/sec2 PA V2 max 86.8 cm/sec PA acc time 0.12 sec Ao root diam 3.5 cm Ascending aorta 3.5 cm EF(MOD-bp) 58.1 % BH CV VAS BP RIGHT ARM 123/80 mmHg Anatomical Region Laterality Modality Ultrasound Narrative 01/21/2025 4:07 PM EDT Left ventricular systolic function is normal. Calculated left ventricular EF = 58.1% Left ventricular ejection fraction appears to be 56 - 60%. Left ventricular wall thickness is consistent with borderline concentric hypertrophy. Left ventricular diastolic function is consistent with (grade I) impaired relaxation. Left Ventricle Left ventricular systolic function is normal. Calculated left ventricular EF = 58.1% Left ventricular ejection fraction appears to be 56 - 60%. Normal left ventricular cavity size noted. Left ventricular wall thickness is consistent with borderline concentric hypertrophy. All left ventricular wall segments contract normally. Left ventricular diastolic function is consistent with (grade I) impaired relaxation. Right Ventricle Normal right ventricular cavity size and systolic function noted. Left Atrium Normal left atrial size and volume noted. Right Atrium Normal right atrial cavity size noted. The inferior vena cava is normally sized. The diameter of the inferior vena cava is 1.02 cm. Normal IVC inspiratory collapse of greater than 50% noted. Mitral Valve The mitral valve is structurally normal with no regurgitation or significant stenosis present. Tricuspid Valve The tricuspid valve is structurally normal with no significant regurgitation or significant stenosis present. Aortic Valve No aortic valve regurgitation or stenosis is present. The aortic valve is grossly normal in structure. The aortic valve was poorly visualized but appears trileaflet. Pulmonic Valve The pulmonic valve is structurally normal with no regurgitation or significant stenosis present. Pericardium The pericardium is normal. There is no evidence of pericardial effusion. . Greater Vessels No dilation of the aortic root is present. Borderline dilation of the ascending aorta is present. Study Quality The study is technically adequate for diagnosis. The quality of the study is limited with poor acoustic windows in the parasternal window. us Ever Lundberg III, MD CV ECHO ORDERABLES Final Re sult documented in this encounter Visit Diagnoses Diagnosis Dyspnea on exertion Other dyspnea and respiratory abnormality documented in this encounter Care Teams Side Panel Hanger Relationship Specialty Start Date End Date Shaji Mehta MD [address] [place] [address] PCP - General Family Medicine 08/06/16 documented as of this encounter
--- OUTSIDE RECORDS SUMMARY | 2025-02-03 05:35 | XMS_ITS | Encounter Summary ---
[facility] Address [address] [place] [address] Care Team Providers Care Head Refrigerating Engineer Name Role Phone Shaji Mehta MD Primary Care Provider [phone] Reason for Visit * Auth/Cert (Routine) Specialty Diagnoses / Procedures Referred By Bandar t Referred To Contact Referral ID Status Reason Start Date Expiration Date Visits Re quested Visits Authorized [id number] 1 1 Encounter Details Date Type Department Care Team (Late st Contact Info) Description 02/03/2025 5:35 AM EDT Hospital Encounter [facility] [address] [facility] [address] [place] [address] Social History Tobacco Use Types Packs/Day Years [...] Description 02/24/2025 9:15 AM EDT Office Visit [facility]IOLOG[facility] [address] [place] [address] Ever Lundberg III, MD [address] [facility] [address] [place] [phone] documented as of this encounter Visit Diagnoses Not on filedocumented in this encounter Care Teams Head Refrigerating Engineer Relationship Specialty Start Date End Date Shaji Mehta MD [address] [place] [address] PCP - General Family Medicine 08/06/16 documented as of this encounter
--- OUTSIDE RECORDS SUMMARY | 2025-02-03 10:00 | XMS_ITS | Encounter Summary ---
Author Organization [facility] Address [address] [place] [address] Care Team Providers Care Casting Sorter Name Role Phone Shaji Mehta MD Primary Care Provider [phone] Reason for Visit * Reason Comments OTHER Trigeminal neuralgia * Auth/Cert (Routine) Specialty Diagnoses / Procedures Referred By Bandar dover Referred To Contact Referral ID Status Reason Start Date Expiration Date Visits Re quested Visits Authorized [id number] 1 1 Encounter Details Date Type Department Care Team (Late st Contact Info) Description 02/03/2025 10:00 AM EDT Clinical Support [facility] [address] [place] [address] Karime Alcantar APRN [address] [place] [address] Trigeminal neuralgia of left side of face (Primary Dx) Social History Tobacco Use Types Packs/Day Years [...] AM EDT documented as of this encounter Progress Notes * Karime Alcantar, CAR HEAD LINER INSTALLER - 02/03/2025 10:00 AM EDT FOLLOW UP NOTE PATIENT: Brenden Auguste : 1950 COMPLETION DATE: 12/31/2024 DIAGNOSIS: Left-sided trigeminal neuralgia This visit has been converted to a telehealth virtual visit, the patient's preferred method for today's follow-up. Total time of discussion was <10 minutes. The patient has given verbal consent. BRIEF HISTORY: Brneden Auguste is a 74-year-old male intact with left-sided trigeminal neuralgia. He has a past medical history significant for resected renal cell carcinoma, type 2 diabetes, hypertension, and hyperlipidemia. He also has a longstanding history of severe and atypical left-sided facial pain. Pain is describedprimarily involving his left cheek and jaw, has always been located to that side and he has had triggers including touch, chewing, speaking, eating, brushing his teeth, etc. He has been given the diagnosis of trigeminal neuralgia and he has been treated with multiple different medications includinggabapentin, carbamazepine which caused hyponatremia, oxcarbazepine, and more recently Lamictal. Unfortunately, he is continued to develop persistent pain despite prior medications. His only form of relief seemingly came after following a recent injection which has brought his pain down to being duy geable. 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 He was evaluated by Dr. Kim with neurosurgery. His medical comorbidities precluded him from undergoing surgery. He underwent treatment with CyberKnife stereotactic radiosurgery to the left trigeminal nerve, 6,000 cGy/1 fraction completing on 12/31/2024. He tolerated treatment well. Following treatment he did not develop any side effects. He reports his left sided facial pain has resolved and only gets a twinge of discomfort only rarelynow. He is able to eat, drink, and brush his teeth without any problems. Health overall is currently stable at this time. MEDICATIONS: Medication reconciliation for the patient was reviewed and confirmed in the electronicmedical record. Review of Systems: PER HPI Physical Exam: Pulmonary: Respirations even, unlabored. No audible wheezing or cough. Neurological: A+Ox4, conversant, answers questions appropriately. Psychiatric: Judgement, affect, and decision-making WNL. Limited physical exam as visit was conducted remotely via telephone. VITAL SIGNS: N/A- Telehealth KPS %: 90 The following portions of the patient's history were reviewed and updated as appropriate: allergies, current medications, past family history, past medical history, past social history, past surgicalhistory and problem list. IMPRESSION: 74-year-old gentleman with left-sided facial pain that is clinically consistent with trigeminal neuralgia given his response to antiepileptic medications and the classical history of painwith triggers in the correct distribution. His imaging appears to have a aberrant vessel immediately adjacent to the left trigeminal nerve. He completed treatment with CyberKnife [facility] approximately 4 weeks ago. He tolerated treatment well. He reports since treatment he has not had any left sided facial pain since treatment and is able toeat, drink, and brush his teeth. He said that he has only experienced an instance of mild discomfort when he was brushing his teeth. He is very pleased with treatment and is hopeful. Discussed with patient he has had a good initial treatment response and that it can sometimes take 3 to 6 months to get full treatment effect. He has done very well following treatment. No further concerns at this time. RECOMMENDATIONS: He will follow-up with us on an as-needed basis. Reviewed that per Dr. Kim's note that he would like to see him back 4 months after treatment forfollow-up and repeat MRI brain. Patient does not yet have appointment scheduled but will call to make an appointment for early April 2025. He also has a local neurologist that he has an upcoming appointment with. Patient verbalizes understanding of above plan and will call with any further questions or concerns. 20 minutes in virtual communication with the patient via telephone, and the remainder of the time spent in reviewing the relevant history, records, available imaging, and for documentation. Karime Alcantar APRN Errors in dictation may reflect use of voice recognition software and not all errors in crystal calibrator may have been detected prior to signing. documented in this encounter Plan of Treatment Upcoming Encounters Date Type Department Care Team (Late st Contact Info) Description 02/24/2025 9:15 AM EDT Office Visit [facility]IOLOG[facility] [address] [place] [address] Ever Lundberg III, MD [address] [place] [address] documented as of this encounter Visit Diagnoses Diagnosis Trigeminal neuralgia of left side of face- Primary documented in this encounter Care Teams Casting Sorter Relationship Specialty Start Date End Date Shaji Mehta MD [address] [place] [id number] PCP - General Family Medicine 08/06/16 documented as of this encounter
--- OUTSIDE RECORDS SUMMARY | 2025-02-16 10:00 | XMS_ITS | Encounter Summary ---
[facility] Address [address] [place] [address] Care Team Providers Care Plumber Assistant Name Role Phone Shaji Mehta MD Primary Care Provider [phone] Reason for Referral * Hospital - Outpatient (Routine) - Authorized Specialty Diagnoses / Procedures Referred By Bandar dover Referred To Contact Sleep Medicine Diagnoses Obstructive sleep apnea, adult Snoring Procedures Home Sleep Study John Mosqueda MD [address] [place] [address] Phone: tel: fax: [facility] [address] [facility] [address] [place] [address] Phone: tel: fax: Referral ID Status Reason Start Date Expiration Date V isits Requested Visits Authorized Authorized 02/16/2025 05/18/2026 1 1 Reason for Visit * Reason Comments Hypertension Snoring * Consultation (Routine) - Closed Specialty Diagnoses / Procedures Referred By Bandar dover Referred To Contact Sleep Medicine Diagnoses At risk for obstructive sleep apnea Procedures SC OFFICE/OUTPATIENT NEW MODERATE MDM 45 MINUTES Ever Lundberg III, MD [address] [facility] [address] [place] [address] Phone: tel: fax: John Mosqueda MD [address] [place] [address] Phone: tel: fax: Referral ID Status Reason Start Date Expiration Date V isits Requested Visits Authorized [id number] Closed Specialty Services Required 11/10/2024 02/09/2026 1 1 Encounter Details Date Type Department Care Team (Late st Contact Info) Description 02/16/2025 10:00 AM EDT Office Visit [facility] SLEEP MEDICINE [address] [facility] [address] [place] [phone] John Mosqueda MD [address] [place] [address] Obstructive sleep apnea, adult (Primary Dx); Snoring; Obesity (BMI 30-39.9) Social History Tobacco Use Types Packs/Day Years [...] Sign Reading Time Taken Comments Blood Pressure 122/86 02/16/2025 9:44 AM EDT Pulse 84 02/16/2025 9:44 AM EDT Temperature 36.9 C (98.5 F) 02/16/2025 9:44 AM EDT Respiratory Rate - - Oxygen Saturation 97% 02/16/2025 9:44 AM EDT Inhaled Oxygen Concentration - - Weight 108 kg (237 lb) 02/16/2025 9:44 AM EDT Height 177.8 cm (5' 10 ) 02/16/2025 9:44 AM EDT Body Mass Index 34.01 02/16/2025 9:44 AM EDT documented in this encounter Progress Notes * John Mosqueda MD - 02/16/2025 10:00 AM EDT Brenden Auguste is a 74 y.o. male. Chief Complaint Patient presents with Hypertension Snoring HPI 74 y.o. male seen in consultation at the request of Ever Lundberg III, MD for evaluation of the above. He was referred by his termite inspector, Dr. Lundberg. He presented with increasing difficulty with blood pressure control and question of a possible sleep disorder. In regards to his sleep he has been observed to snore by his . She describes this as consistentand she has noted occasional breathing pauses. He wakens 3-4 times at night. His perception is that these awakenings are to urinate. He thinks he averages around 6 and half hours of sleep per night and then typically will take a 1 hour nap in theafternoon on most days. He does not perceive much in the way of daytime sleepiness and remains very active. He is the primary caregiver for his who has significant medical challenges. He keeps a regular sleep schedule and is typically in bed from 11 PM until 6:30 AM. He denies any RLS symptoms or significant nocturnal pain. His past medical history is significant for hypertension as well as BPH, trigeminal neuralgia, and prior renal cell carcinoma [place] Scale is: 4/24 The patient's relevant past medical, surgical, family, and social history reviewed and updated in [facility] as appropriate. Current medications are: Current Outpatient Medications: amLODIPine (NORVASC) 10 MG tablet, Take 1 tablet by mouth every night at bedtime., Disp: 90 tablet,Rfl: 1 aspirin 81 MG EC tablet, Take 1 tablet by mouth Daily., Disp: , Rfl: atorvastatin (LIPITOR) 20 MG tablet, Take 1 tablet by mouth Daily., Disp: , Rfl: coenzyme Q10 100 MG capsule, Take 1 capsule by mouth Daily., Disp: , Rfl: hydroCHLOROthiazide 12.5 MG tablet, Take 1 tablet by mouth Daily., Disp: , Rfl: losartan (COZAAR) 50 MG tablet, Take 1 tablet by mouth Every Morning., Disp: 90 tablet, Rfl: 1 metFORMIN (GLUCOPHAGE) 500 MG tablet, Take 1 tablet by mouth 2 (Two) Times a Day With Meals., Disp:, Rfl: OXcarbazepine (TRILEPTAL) 150 MG tablet, Take 2 tablets by mouth 2 (Two) Times a Day., Disp: , Rfl:. Review of Systems Review of Systems ROS documented in patient questionnaire ??14 systems. Otherwise negative except as noted in HPI. Physical Exam Blood pressure 122/86, pulse 84, temperature 98.5 ??F (36.9 ??C), temperature source Infrared, height 177.8 cm (70 ), weight 108 kg (237 lb), SpO2 97%. Body mass index is 34.01 kg/m??. Physical Exam Vitals and nursing note reviewed. Constitutional: Appearance: Normal appearance. He is well-developed. HENT: Head: Normocephalic and atraumatic. Nose: Nose normal. Mouth/Throat: Mouth: Mucous membranes are moist. Pharynx: Oropharynx is clear. No oropharyngeal exudate. Comments: Class III airway Eyes: General: No scleral icterus. Conjunctiva/sclera: Conjunctivae normal. Neck: Thyroid: No thyromegaly. Trachea: No tracheal deviation. Cardiovascular: Rate and Rhythm: Normal rate and regular rhythm. Heart sounds: No murmur heard. No friction rub. No gallop. Pulmonary: Effort: Pulmonary effort is normal. No respiratory distress. Breath sounds: No wheezing or rales. Musculoskeletal: General: No deformity. Skin: General: Skin is warm and dry. Findings: No rash. Neurological: Mental Status: He is alert and oriented to person, place, and time. Psychiatric: Behavior: Behavior normal. Thought Content: Thought content normal. DATA: Reviewed 11/10/[address] Lundberg Reviewed bed partner questionnaire ASSESSMENT: Problem List Items Addressed This Visit None Visit Diagnoses Obstructive sleep apnea, adult - Primary Relevant Orders Home Sleep Study Snoring Relevant Orders Home Sleep Study Obesity (BMI 30-39.9) 74-year-old male referred to the sleep center by Dr. Lundberg. He presents with snoring, possible apneas, frequent nocturnal awakenings, and hypertension. He does not perceive much in the way of daytimesomnolence. He has a class III airway and elevated BMI. Based on the above he is at high risk for the presence of obstructive sleep apnea and warrants further testing. I discussed this with him. I went over the potential benefits for him as well as the testing options. He he typically will not leave his at home as she has chronic illness and would prefer a home sleep apnea test. I went over the testing process as well as treatment options in detail with him PLAN: - Home sleep apnea testing. - Diagnostic process and potential treatment options discussed and questions/concerns addressed. - Long-term cardiovascular and metabolic risks of untreated obstructive sleep apnea reviewed with the patient. - The importance of long-term healthy weight loss discussed. - Patient was agreeable to a trial of CPAP therapy on an initial trial basis if recommended after testing complete. - PSG not a great option for him due to his as described above. - Sleep center follow-up. I have reviewed the results of my evaluation and impression and discussed my recommendations in detail with the patient. Signed by John Mosqueda MD February 16, 2025 CC: Shaji Mehta MD Lynch, John W III, MD documented in this encounter Plan of Treatment Upcoming Encounters Date Type Department Care Team (Late st Contact Info) Description 02/24/2025 9:15 AM EDT Office Visit [facility] CARDIOLOGY [address] [facility] [address] [place] [id number] Ever Lundberg III, MD [address] [facility] [address] [place] [address] Scheduled Orders Name Type Priority Associated Diagnoses Orde r Schedule Home Sleep Study Sleep Center Routine Obstructive sleep apnea, adult Snoring Expected: 02/21/2025 (Approximate), Expires: 02/16/2026 documented as of this encounter Visit Diagnoses Diagnosis Obstructive sleep apnea, adult- Primary Snoring Other dyspnea and respiratory abnormality Obesity (BMI 30-39.9) documented in this encounter Care Teams Plumber Assistant Relationship Specialty Start Date End Date Shaji Mehta MD [address] [place] [address] PCP - General Family Medicine 08/06/16 documented as of this encounter
--- NOTE | 2025-02-17 19:41 | HMH.EDGENADL ---
Discharge Plan Disposition Patient Disposition: Home, Self-Care Condition: Good Prescriptions Prescriptions: No Action amlodipine 10 mg tablet 10 mg PO DAILY Patient Comments: TAKE 1 TABLET BY MOUTH EVERY DAY AT BEDTIME losartan 50 mg tablet 50 mg PO DAILY oxcarbazepine 150 mg tablet 300 mg PO BID Qty: 120 6RF atorvastatin 20 mg tablet 20 mg PO DAILY aspirin [Aspir-81] 81 mg Tablet,Delayed Release (Dr/Ec) 81 mg PO DAILY hydrochlorothiazide 12.5 mg tablet 12.5 mg PO ONCE Referrals Follow up/Referrals: Karmen Mehta MD [Primary Care Provider, Medical] - See instructions Activity Restrictions/Add. Instructions Additional Instructions/Restrictions: As we discussed please follow-up with your pain management and neurologist as scheduled. Please notify your neurosurgeon. If you have any persistent new or worsening signs or symptoms follow-up with your PCP return to the ER as needed. Clinical Impressions Clinical Impression: Trigeminal neuralgia of left side of face Print Language Print Language: Georgian Discharge ED Provider: Omar Gray General Adult HPI <MAIDA Silva - Last Filed: 02/17/25 20:18> General Chief complaint: PAIN Stated complaint: Left jaw pain Time Seen by Provider: 02/17/25 19:41 History of Present Illness HPI narrative: Patient presents for evaluation of a trigeminal neuralgia flare. Patient has a longstanding history of trigeminal neuralgia and is followed both by pain management here neurology here but also has undergone CyberKnife at [facility] for the same. Patient has had a good 4 weeks since his CyberKnife surgery and however he was brushing his teeth today and started having a flare of his pain. He is taking his medication as normal and it has not helped. He has been seen several times in the past for this in our ER and patient usually benefits from injections of anti-inflammatories and steroids. Patient has no red flags denies any focal neurologic deficits reports left-sided jaw pain and headache without any relief from his home regimen. Related Data Home Medications ?Medication ?Instructions ?Recorded ?Confirmed atorvastatin 20 mg tablet 20 mg PO DAILY 06/19/24 01/12/25 aspirin 81 mg tablet,delayed 81 mg PO DAILY 09/13/24 01/12/25 release amlodipine 10 mg tablet 10 mg PO DAILY 12/14/24 01/12/25 hydrochlorothiazide 12.5 mg tablet 12.5 mg PO ONCE 12/14/24 01/12/25 losartan 50 mg tablet 50 mg PO DAILY 12/14/24 01/12/25 Previous Rx's ?Medication ?Instructions ?Recorded oxcarbazepine 150 mg tablet 300 mg (2 x 150 mg) PO BID 12/21/24 Trigeminal neuralgia #120 tabs Allergies Allergy/AdvReac Type Severity Reaction Status Date / Time azithromycin (From ZITHROMAX) Allergy Mild Other Verified 12/14/24 08:05 [facility] <MAIDA Silva - Last Filed: 02/17/25 20:18> [facility] Disclaimer: The information contained in this section may have been updated after the patient was seen, as this information can be updated by other users. Medical History Facial pain History of ulcer disease History of neck pain History of varicose veins of lower extremity History of hyperlipidemia Trigeminal neuralgia of left side of face Left trigeminal neuralgia. Good response to carbamazepine 200 mg po bid but developed hyponatremia. Recurrent symptoms on oxacarbazepine 300 mg po bid most likely due to diuretic therapy, (hydrochlorothiazide 12.5, 2/3 times daily). History of hypertension Nocturia Renal cell cancer Surgical History History of nephrectomy, left Family History Other Cancer Coronary artery disease Emphysema of lung Social History Smoking Status: Former smoker tobacco type: cigarettes packs per day: 1 smoking status stop date: 2015 alcohol intake: never substance use type: denies use current occupational status: other Travel in the last 8 weeks?: None household members: spouse housing: house marital status: number of children: 3 Have you lived/traveled outside US in past 30 days?: No Contact w/someone who lives/traveled outside US past 30 days?: No Exposure to someone with infectious disease in past 14 days?: No Do you have a fever (greater than 100.4 F or 38 C)?: No Have you tested positive for COVID-19?: No Exposed to someone with COVID-19 in past 14 days?: No Do you have a sore throat?: No Do you have a cough?: No Do you have any weakness?: No Do you have any diarrhea?: No Are you experiencing any unusual bleeding?: No Do you have any muscle aches/pain?: No Do you have any abdominal pain?: No Are you experiencing loss of taste or smell?: No Other Medical History Have you received the Flu Vaccine for this season: No Have you received the Pneumonia Vaccine: No <MAIDA Silva - Last Filed: 02/17/25 20:18> ROS Obtained: Yes Systems reviewed as appropriate & no additional complaints except as documented Physical Exam <MAIDA Silva - Last Filed: 02/17/25 20:18> General General appearance: alert and in no apparent distress Respiratory Respiratory exam: Present normal lung sounds bilaterally Cardiovascular Cardiovascular exam: Present regular rate Abdominal Exam Abdominal exam: Present soft Neurological Exam Neurological exam: Present alert and oriented X3 Medical Decision Making <MAIDA Silva - Last Filed: 02/17/25 20:18> Medical Records Medical records reviewed: Yes I reviewed the patient's medical records. Screening: Per USPSTF and CDC recommendations, given the prevalence of disease in our region, it is our hospital?s policy to screen for HIV and viral Hepatitis for all patients aged 18 and over and those with ongoing risk factors. Onel Inquiry Pt receiving controlled substance: No Vital Signs: 02/17/25 19:47 02/17/25 20:50 Temperature 99.1 F 98.7 F Temperature Source Oral Oral Pulse Rate 68 Pulse Rate [Right Radial] 95 H Respiratory Rate 16 16 Blood Pressure 106/80 L Blood Pressure [Right Arm] 161/91 H Blood Pressure Mean [Right Arm] 114 Blood Pressure Position Supine 02 Sat by Pulse Oximetry 98 Oxygen Delivery Method Room Air Room Air Orders (Tests/Meds): ED MEDICATIONS Discontinued Medications Generic Name Dose Route Start Last Admin Trade Name Freq PRN Reason Stop Dose Admin Dexamethasone Sodium Phosphate 10 mg 02/17/25 19:56 02/17/25 20:09 Dexamethasone 4mg/Ml 1ml Vial IM 02/17/25 19:57 10 mg ONCE ONE Administration Ketorolac Tromethamine 30 mg 02/17/25 19:56 02/17/25 20:12 Ketorolac 30mg/Ml Vial IM 02/17/25 19:57 30 mg ONCE ONE Administration Medical Decision Narrative: In summary patient is a 74-year-old male who presents to the emergency department for evaluation of left-sided trigeminal neuralgia flare. Patient is hemodynamically stable upon arrival, afebrile. Physical exam is remarkable for Timi Coma Score 15 cranial nerves II through XII intact respiratory exam oropharynx is normal patient has no focal neurologic deficits there is no C-spine tenderness or painful range of motion of the C-spine.. Differential diagnosis includes trigeminal neuralgia and other diagnoses considered were MRI however this is a well-established pattern for the patient and he has no red flags or other symptoms other than his normal presentation of a trigeminal neuralgia flare thus alternative diagnosis is not pursued. Initial workup was considered with twelve-lead EKG labs and imaging however again this is well in the pattern of patient's known trigeminal neuralgia flare and he has no other additional symptoms other than the local left-sided jaw neuropathic pain thus alternative workup was not pursued. Initial interventions include IM Decadron and Toradol. Thus patient is appropriate for discharge after ministration medication with close follow-up as scheduled with neurology pain management his neurosurgeon at [facility] and strict return precautions. <Omar Gray, DO - Last Filed: 02/18/25 03:18> Vital Signs: 02/17/25 19:47 02/17/25 20:50 Temperature 99.1 F 98.7 F Temperature Source Oral Oral Pulse Rate 68 Pulse Rate [Right Radial] 95 H Respiratory Rate 16 16 Blood Pressure 106/80 L Blood Pressure [Right Arm] 161/91 H Blood Pressure Mean [Right Arm] 114 Blood Pressure Position Supine 02 Sat by Pulse Oximetry 98 Oxygen Delivery Method Room Air Room Air Orders (Tests/Meds): ED MEDICATIONS Discontinued Medications Generic Name Dose Route Start Last Admin Trade Name Freq PRN Reason Stop Dose Admin Dexamethasone Sodium Phosphate 10 mg 02/17/25 19:56 02/17/25 20:09 Dexamethasone 4mg/Ml 1ml Vial IM 02/17/25 19:57 10 mg ONCE ONE Administration Ketorolac Tromethamine 30 mg 02/17/25 19:56 02/17/25 20:12 Ketorolac 30mg/Ml Vial IM 02/17/25 19:57 30 mg ONCE ONE Administration Medical Decision Narrative: In summary patient is a 74-year-old male who presents to the emergency department for evaluation of left-sided trigeminal neuralgia flare. Patient is hemodynamically stable upon arrival, afebrile. Physical exam is remarkable for [place] Coma Score 15 cranial nerves II through XII intact respiratory exam oropharynx is normal patient has no focal neurologic deficits there is no C-spine tenderness or painful range of motion of the C-spine.. Differential diagnosis includes trigeminal neuralgia and other diagnoses considered were MRI however this is a well-established pattern for the patient and he has no red flags or other symptoms other than his normal presentation of a trigeminal neuralgia flare thus alternative diagnosis is not pursued. Initial workup was considered with twelve-lead EKG labs and imaging however again this is well in the pattern of patient's known trigeminal neuralgia flare and he has no other additional symptoms other than the local left-sided jaw neuropathic pain thus alternative workup was not pursued. Initial interventions include IM Decadron and Toradol. Thus patient is appropriate for discharge after ministration medication with close follow-up as scheduled with neurology pain management his neurosurgeon at [facility] and strict return precautions. I was consulted by the BEVERLY, and we discussed the complexity of problems being addressed. I approved the treatment and management plan for this patient's care in the emergency department, thus performing a substantive portion of the medical decision making. Omar Gray, -- On my independent evaluation of the patient, he tells me this pain feels identical to prior episodes of trigeminal neuralgia, and pain began while brushing teeth at home. He states his pain is always left sided and feels like a shocking sensation in the face along the V3 distribution. His pain this evening felt identical to this and he came here seeking pain control. Labs and imaging were considered and offered to the patient, but he feels confident this is typical of his trigeminal neuralgia and does not feel it necessary to undergo repeat lab and imaging workup, given his extensive history of labs/imaging and confirmed diagnosis of trigeminal neuralgia. We instead opted for pain control with decadron and toradol. On repeat reassessment he was resting comfortably in no acute distress. All questions were answered and all parties were agreeable with the decision to discharge home. Critical Care <MAIDA Silva - Last Filed: 02/17/25 20:18> Critical Care Time Critical Care Time: No
--- OUTSIDE RECORDS SUMMARY | 2025-02-17 19:45 | XMS_ITS | Encounter Summary ---
[facility] Address [address] [address] Care Team Providers Care Chimney Builder Helper Name Role Phone Shaji Mehta MD Primary Care Provider [phone] Encounter Details Date Type Department Care Team (Latest Contact Info) Description 01/21/2025 Travel Social History Tobacco Use Types Packs/Day Years [...] 02/24/2025 9:15 AM EDT Office Visit [facility] CARDIOLOGY [facility] [address] [address] Ever Lundberg III, MD [address] [place] [address] documented as of this encounter Visit Diagnoses Not on filedocumented in this encounter Care Teams Chimney Builder Helper Relationship Specialty Start Date End Date Shaji Mehta MD [address] [place] [address] PCP - General Family Medicine 08/06/16 documented as of this encounter
--- OUTSIDE RECORDS SUMMARY | 2025-02-17 19:45 | XMS_ITS | Encounter Summary ---
[facility] Address [address] [place] [address] Care Team Providers Care Structural Steel Worker Helper Name Role Phone Shaji Mehta MD Primary Care Provider [phone] Encounter Details Date Type Department Care Team (Late st Contact Info) Description 01/04/2025 Documentation [facility]UR[facility] [address] [facility] [address] [place] [address] Zay Kim MD [address] [facility] [address] [place] [id number] Social History Tobacco Use Types Packs/Day Years [...] as of this encounter Progress Notes * Zay Kim MD - 01/04/2025 10:46 AM EDTSummary: CyberKnife radiation note CyberKnife stereotactic radiosurgery note Preoperative diagnosis severe left-sided trigeminal neuralgia Postoperative diagnosis same Same Procedures Stereotactic radiosurgery to the left sided proximal entry zone of the trigeminal nerve Patient received 7500 cGy Neurosurgeon Zay Kim M.D. Radiation oncologist Annamaria ROPER Procedure in detail Patient was taken to the CyberKnife stereotactic surgery suite placed in his oculoplastic mask. TheMRI and CT scans which had been infused were used pre- surgically at an independent workstation to create an outline of the treatment bed. This was reviewed by the radiosurgery treatment team. At thispoint in time the treatment plan was administered by taking the CT derived DR Stephenson images and aligningthem and this was triple checked in the radio surgical suite. The patient received dosing per the CyberKnife stereotactic radiosurgery plan which I personally outlined and this was administered with the assistance of a radiation physicist both Earl and Dr. Yin where there no immediate complications noted The patient will follow-up for follow-up MRIs and a proximally 4 months to monitor his progress Lizette was present personally available during the treatment and planned the targeting personally with the rad onc documented in this encounter Plan of Treatment Upcoming Encounters Date Type Department Care Team (Late st Contact Info) Description 02/24/2025 9:15 AM EDT Office Visit [facility] CARDIOLOGY [address] [place] [address] Ever Lundberg III, MD [address] [place] [address] documented as of this encounter Visit Diagnoses Not on filedocumented in this encounter Care Teams Structural Steel Worker Helper Relationship Specialty Start Date End Date Shaji Mehta MD [address] [place] [address] PCP - General Family Medicine 08/06/16 documented as of this encounter
--- OUTSIDE RECORDS SUMMARY | 2025-02-17 19:45 | XMS_ITS | Encounter Summary ---
[facility] Address [address] [place] [address] Care Team Providers Care Clerical Adjuster Name Role Phone Shaji Mehta MD Primary Care Provider [phone] Encounter Details Date Type Department Care Team (Latest Contact Info) Description 12/27/2024 Travel Social History Tobacco Use Types Packs/Day [...] Description 02/24/2025 9:15 AM EDT Office Visit [facility] CARDIOLOGY [facility] PAVITHRADELILAH [address] [address] Ever Lundberg III, MD [address] [place] [address] documented as of this encounter Visit Diagnoses Not on filedocumented in this encounter Care Teams Clerical Adjuster Relationship Specialty Start Date End Date Shaji Mehta MD [address] [place] [address] PCP - General Family Medicine 08/06/16 documented as of this encounter
--- OUTSIDE RECORDS SUMMARY | 2025-02-17 19:45 | XMS_ITS | Encounter Summary ---
[facility] [address] [place] [address] Care Team Providers Care Perioperative Nurse Name Role Phone Shaji Mehta MD Primary Care Provider [phone] Reason for Visit * Reason Onset Date Comments Med Refill 01/20/2025 Encounter Details Date Type Department Care Team (Late st Contact Info) Description 01/20/2025 Refill [facility] CARDIOLOGY [address] [facility] [address] [place] [address] Ever Lundberg III, MD 1720 [facility] [address] [place] [address] Med Refill Social History Tobacco Use Types Packs/Day Years [...] 02/24/2025 9:15 AM EDT Office Visit [facility] CARDIOLOGY [address] [place] [address] Ever Lundberg III, MD [address] [place] [address] documented as of this encounter Visit Diagnoses Not on filedocumented in this encounter Care Teams Perioperative Nurse Relationship Specialty Start Date End Date Shaji Mehta MD [address] [place] [address] PCP - General Family Medicine 08/06/16 documented as of this encounter
--- OUTSIDE RECORDS SUMMARY | 2025-02-17 19:46 | XMS_ITS | Encounter Summary ---
Author Organization [facility] Address [address] [place] [address] Care Team Providers Care Hand Packer Name Role Phone Shaji Mehta MD Primary Care Provider [phone] Encounter Details Date Type Department Care Team (Late st Contact Info) Description 02/16/2025 Telephone [facility] CARDIOLOGY 1720 [facility] [address] [place] [address] Ever Lundberg III, MD 1720 [facility] [address] [place] [address] Social History Tobacco Use Types Packs/Day Years [...] AM EDT documented as of this encounter Miscellaneous Notes * Telephone Encounter - Debby Hamilton, RN - 02/16/2025 3:50 PM EDT Notified of message from . Verbalized understanding. * Telephone Encounter - Debby Hamilton, RN - 02/16/2025 3:50 PM EDT ----- Message from Ever Lundberg sent at 02/16/2025 3:36 PM EDT ----- Reviewed recent lab work. Developing low sodium levels, recommend discontinuing hydrochlorothiazide. ----- Message ----- From: Amy Rutledge Sent: 02/16/2025 10:59 AM EDT To: Ever Lundberg III, MD documented in this encounter Plan of Treatment Upcoming Encounters Date Type Department Care Team (Late st Contact Info) Description 02/24/2025 9:15 AM EDT Office Visit [facility] CARDIOLOGY [address] [place] [address] Ever Lundberg III, MD [address] [address] documented as of this encounter Visit Diagnoses Not on filedocumented in this encounter Care Teams Hand Packer Relationship Specialty Start Date End Date Shaji Mehta MD [address] [place] [address] PCP - General Family Medicine 08/06/16 documented as of this encounter
--- OUTSIDE RECORDS SUMMARY | 2025-02-17 19:46 | XMS_ITS | Data Portability ---
Author Organization [facility] [place] Address [address] [place] [address] Assessment No assessment recorded. Plan of Treatment Reminders Order Date Submit Date Provider Last Modified By Organization Details Last Modified Time Details Appointments OV EST 15 2024 09:45A M Jeronimo Cali Jr, MD Not available Not available Not available Lab BMP, blood 2023 024 [email or web address] [facility] (Laboratory), [address] [place], [address], 05/26/2024 07:24:28 PSA, serum or plasma 2023 024 [facility] (Laboratory), [address] [place], [address], 05/19/2024 17:26:16 hepatic function panel, serum 2023 024 [facility] (Laboratory), [address] [place], [address], 05/19/2024 17:27:28 CMP, serum or plasma [address] (Laboratory), [address] [place], [address], 05/08/2023 10:51:26 Referral None recorded. Procedures None recorded. Surgeries None recorded. Imaging XR, chest, 2 view [address] [facility], [address] [place] [address] [place], [address], 05/19/2024 14:11:58 XR, chest, 2 view 2022 023 [email or web address] [facility] (Radiology), [address] [place], [address], 05/08/2023 10:51:26 Medication Orders None recorded. Patient TargetsNo targets recorded. Patient InstructionsNo instructions recorded. Reason for Referral None Reported. Results Created Date Observation Date Name Description Value Unit Range Abnormal Flag Note LastModifiedBy Organization Detail LastModifiedTime 05/07/2005/07/2023 COMP METAB OLIC PANEL sodium 136 mmol/ L 136-14 5 Not Available [facility] (Lab Registration) [address] [place], [address], 05/07/2023 17:04:33 05/07/2005/07/2023 COMP METAB OLIC PANEL potassium 5.0 mmol/ L 3.5-5. 1 Not Available [facility] (Lab Registration) [address] [place], [address], 05/07/2023 17:04:33 05/07/2005/07/2023 COMP METAB OLIC PANEL chloride 99 mmol/ L 98-107 Not Available [facility] (Lab Registration) [address] [place], [address], 05/07/2023 17:04:33 05/07/2005/07/2023 COMP METAB OLIC PANEL carbon dioxide 29 mmol/ L 21-32 Not Available [facility] (Lab Registration) [address] [place], [address], 05/07/2023 17:04:33 05/07/2005/07/2023 COMP METAB OLIC PANEL anion gap 8.0 Not Available [facility] (Lab Registration) [address] [place], [address], 05/07/2023 17:04:33 05/07/2005/07/2023 COMP METAB OLIC PANEL glucose 110 mg/dL 70-110 Not Available [facility] (Lab Registration) [address] [place], [address], 05/07/2023 17:04:33 05/07/20 23 05/07/2023 COMP METAB OLIC PANEL blood urea nitrogen 18 mg/dL 7-18 Not Available [facility] (Lab Registration) [address] [place], [address], 05/07/2023 17:04:33 05/07/2005/07/2023 COMP METAB OLIC PANEL creatinine 1.1 mg/dL 0.8-1. 3 Not Available [facility] (Lab Registration) [address] [place], [address], 05/07/2023 17:04:33 05/07/2005/07/2023 COMP METAB OLIC PANEL BUN/creatini ne ratio 16.4 ratio 9-21 Not Available [facility] (Lab Registration) [address] [place], [address], 05/07/2023 17:04:33 05/07/2005/07/2023 COMP METAB OLIC PANEL estimated glom filtration rate 70 mL/mi n >60- Not Available [facility] (Lab Registration) [address] [place], [address], 05/07/2023 17:04:33 05/07/20 23 05/07/2023 COMP METAB OLIC PANEL total protein 7.5 g/dL 6.4-8. 2 Not Available [facility] (Lab Registration) [address] [place], [address], 05/07/2023 17:04:33 05/07/20 23 05/07/2023 COMP METAB OLIC PANEL albumin 4.1 g/dL 3.4-5. 0 Not Available [facility] (Lab Registration) [address] [place], [address], 05/07/2023 17:04:33 05/07/20 23 05/07/2023 COMP METAB OLIC PANEL calcium 8.8 mg/dL 8.5-10 .1 Not Available [facility] (Lab Registration) [address], [place], [address], 05/07/2023 17:04:33 05/07/20 23 05/07/2023 COMP METAB OLIC PANEL corrected calcium 8.7 mg/dL 8.5-10 .1 Not Available [facility] (Lab Registration) [address], [place], [address], 05/07/2023 17:04:33 05/07/2005/07/2023 COMP METAB OLIC PANEL bilirubin total 0.4 mg/dL 0.4-1. 5 Not Available [facility] (Lab Registration) [address] [place], [address], 05/07/2023 17:04:33 05/07/2005/07/2023 COMP METAB OLIC PANEL AST (SGOT) 17 U/L 15-37 Not Available [facility] (Lab Registration) [address] [place], [address], 05/07/2023 17:04:33 05/07/20 23 05/07/2023 COMP METAB OLIC PANEL ALT (SGPT) 39 U/L 12-78 Not Available [facility] (Lab Registration) [address] [place], [address], 05/07/2023 17:04:33 05/07/2005/07/2023 COMP METAB OLIC PANEL alk phosphatase 64 U/L Not Available [facility] (Lab Registration) [address] [place], [address], 05/07/2023 17:04:33 05/07/2005/07/2023 COMP METAB OLIC PANEL note Unles s other centeno noted testi ng perfo rmed at: [facility] [address] [place] [address] [phone] Damian perera MD CLIA: [id number] Not Available [facility] (Lab Registration) [address] [place], [address], 05/07/2023 17:04:33 05/19/20 24 05/19/2024 PROST ATE SPECI FIC AG (PSA) prostate specific Ag (PSA) 0.59 NG/mL 0.0-4. 0 Not Available [facility] (Lab Registration) [address] [place], [address], 05/19/2024 17:26:16 05/19/2005/19/2024 PROST ATE SPECI FIC AG (PSA) note Unles s other centeno noted testi ng perfo rmed at: [facility] [address] [facility] [place] [address] [phone] Damian perera MD CLIA: [id number] Not Available [facility] (Lab Registration) [address] [place], [address], 05/19/2024 17:26:16 05/19/2005/19/2024 BASIC METAB OLIC PANEL sodium 133 mmol/ L 136-14 5 low Not Available [facility] (Lab Registration) [address] [place], [address], 05/19/2024 17:27:23 05/19/20 24 05/19/2024 BASIC METAB OLIC PANEL potassium 4.6 mmol/ L 3.5-5. 1 Not Available [facility] (Lab Registration) [address] [place], [address], 05/19/2024 17:27:23 05/19/20 24 05/19/2024 BASIC METAB OLIC PANEL chloride 97 mmol/ L 98-107 low Not Available [facility] (Lab Registration) [address] [place], [address], 05/19/2024 17:27:23 05/19/20 24 05/19/2024 BASIC METAB OLIC PANEL carbon dioxide 30 mmol/ L 21-32 Not Available [facility] (Lab Registration) [address], [place], [address], 05/19/2024 17:27:23 05/19/20 24 05/19/2024 BASIC METAB OLIC PANEL anion gap 6.0 Not Available [facility] (Lab Registration) [address], [place], [address], 05/19/2024 17:27:23 05/19/2005/19/2024 BASIC METAB OLIC PANEL glucose 115 mg/dL 70-110 high Not Available [facility] (Lab Registration) [address], [place], [address], 05/19/2024 17:27:23 05/19/2005/19/2024 BASIC METAB OLIC PANEL blood urea nitrogen 19 mg/dL 7-18 high Not Available [facility] (Lab Registration) [address], [place], [address], 05/19/2024 17:27:23 05/19/2005/19/2024 BASIC METAB OLIC PANEL creatinine 1.2 mg/dL 0.8-1. 3 Not Available [facility] (Lab Registration) [address], [place], [address], 05/19/2024 17:27:23 05/19/2005/19/2024 BASIC METAB OLIC PANEL BUN/creatini ne ratio 15.8 9-21 Not Available [facility] (Lab Registration) [address], [place], [address], 05/19/2024 17:27:23 05/19/2005/19/2024 BASIC METAB OLIC PANEL [...] traylor ing kiney funct ion. Not Available [facility] (Lab Registration) [address], [place], [address], 05/19/2024 17:27:23 05/19/2005/19/2024 BASIC METAB OLIC PANEL calcium 9.0 mg/dL 8.5-10 .1 Not Available [facility] (Lab Registration) [address], [place], [address], 05/19/2024 17:27:23 05/19/2005/19/2024 BASIC METAB OLIC PANEL note Unles s other centeno noted testi ng perfo rmed at: [facility] [address] [place] [address] [phone] Damian perera MD CLIA: [id number] Not Available [facility] (Lab Registration) [address], [place], [address], 05/19/2024 17:27:23 05/19/20 24 05/19/2024 HEPAT IC FUNCT ION PANEL total protein 7.2 g/dL 6.4-8. 2 Not Available [facility] (Lab Registration) [address] [place], [address], 05/19/2024 17:27:28 05/19/20 24 05/19/2024 HEPAT IC FUNCT ION PANEL albumin 3.8 g/dL 3.4-5. 0 Not Available [facility] (Lab Registration) [address] [place], [address], 05/19/2024 17:27:28 05/19/20 24 05/19/2024 HEPAT IC FUNCT ION PANEL bilirubin direct 0.1 mg/dL 0.0-0. 3 Not Available [facility] (Lab Registration) [address] [place], [address], 05/19/2024 17:27:28 05/19/2005/19/2024 HEPAT IC FUNCT ION PANEL bilirubin total 0.3 mg/dL 0.4-1. 5 low Not Available [facility] (Lab Registration) [address] [place], [address], 05/19/2024 17:27:28 05/19/2005/19/2024 HEPAT IC FUNCT ION PANEL AST (SGOT) 14 U/L 15-37 low Not Available [facility] (Lab Registration) [address] [place], [address], 05/19/2024 17:27:28 05/19/2005/19/2024 HEPAT IC FUNCT ION PANEL ALT (SGPT) 32 U/L 12-78 Not Available [facility] (Lab Registration) [address] [place], [address], 05/19/2024 17:27:28 05/19/2005/19/2024 HEPAT IC FUNCT ION PANEL alk phosphatase 58 U/L Not Available [facility] (Lab Registration) [address] [place], [address], 05/19/2024 17:27:28 05/19/2005/19/2024 HEPAT IC FUNCT ION PANEL note Unles s other centeno noted testi ng perfo rmed at: [facility] [address] [place] [address] [phone] Damian perera MD CLIA: [id number] Not Available [facility] (Lab Registration) [address] [place], [address], 05/19/2024 17:27:28 05/07/20 23 05/07/2023 XR, chest , 2 view [facility] [place] [address] Phone: Fax: Name: ANGELLA SAUL Exam Date: 2022 : [birth year] Age 72 years Gender : M Access ion: [id number] Physic ivana: SAV CALI Facili ty: [place] Facili ty HSV: Outpat ient [...] LIZZETTE HOLLIDAY 2022 Thank you for referr ANGELLA Rivas to [facility] Hospit [facility]. Legall y authen ticate d by POPE LIZZETTE Duggan DO 2022- 0- 11:49: 18 CC'ed Logic: Orderi ng Provid er: LAURA Gonzales CC Provid er: DEMARCO ROACH Attend ing Provid er: LAURA Gonzales Referr ing Provid er: LAURA Gonzales Admitt ing Provid er: LAURA Gonzales [email or web address] [facility] (Radiology) [address] [place], [address], 05/08/2023 16:03:23 05/19/20 24 05/19/2024 XR, chest , 2 view [facility] [address] [place] [address] Phone: Fax: Name: ANGELLA SAUL Exam Date: 2023 : [birth year] Age 73 years Gender : M Access ion: [id number] Physic ivana: SAV CALI Facili ty: [facility] Facili ty HSV: Outpat ient [...] for referr ing ANGELLA SAUL to [facility]. Legall y authen ticate d by MICHEAL Ravi III, MD 2023-07 10:53: 56 CC'ed Logic: Orderi ng Provid er: LAURA Gonzales CC Provid er: DEMARCO ROACH Attend ing Provid er: LAURA Gonzales Referr ing Provid er: LAURA Gonzales Admitt ing Provid er: LAURA Gonzales [email or web address] [facility] (Radiology) [address] [place] [address] [place], [address], 08/13/2024 15:59:17 Result Notes Documentation Provider Name and Address Organization Details Recorded Time Xr, Chest, 2 View : [address] [place] [address] Name: ANGELLA AUGUSTE Exam Date: 05/07/2023 : 1950 Age 72 years Gender: M Physician: JERONIMO CALI Facility: [facility] Facility HSV: Outpatient Exam: CHEST PA ^ [...] dictated by Dr. Holliday. Transcribed by Kalyan Wallace PA-C Dictated By: LIZZETTE HOLLIDAY Transcribed By: LIZZETTE HOLLIDAY Transcribed On: 05/07/2023 11:49 AM Electronically signed by: LIZZETTE HOLLIDAY 05/07/2023 Thank you for referring ANGELLA AUGUSTE to [facility]. Legally authenticated by POPE LIZZETTE Duggan DO 2023-05-07 11:49:18 CC'ed Logic: Ordering Provider: LAURA DECKER CC Provider: DEMARCO ROACH Attending Provider: LAURA DECKER Referring Provider: LAURA DECKER Admitting Provider: LAURA Cali Jr, MD [address] [place] [address], [address], [place], [address] & [place] 05/08/2023 16:03:23 Xr, Chest, 2 View : [address] [place] [address] Name: ANGELLA AUGUSTE Exam Date: 05/19/2024 : 1950 Age 73 years Gender: M Physician: JERONIMO CALI Facility: [facility] Facility HSV: Outpatient Exam: CHEST PA ^ [...] Thank you for referring ANGELLA AUGUSTE to [facility]. Legally authenticated by MICHEAL MENDEZ III, MD 2024-05-19 10:53:56 CC'ed Logic: Ordering Provider: LAURA DECKER CC Provider: DEMARCO ROACH Attending Provider: LAURA DECKER Referring Provider: LAURA DECKER Admitting Provider: LAURA hartman [facility] & [place] 08/13/2024 15:59:17 Medical Equipment None Reported. 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 medicatio n Not available Not available Not available 05/02/2023 56212 RxNorm Lila Eduardo hartman [facility] & [place] 15:07:46 Medications Name Sig Start Date Stop [...] Updated DateTime 05/07/2023 177.8 cm 35.9 kg/m2 973995.09 g 98 [degF] [facility] & [place] 05/07/2023 09:38:34 Date Recorded Body height Body mass index (BMI) Body weight Provider Name and Address Organization Details Last Updated DateTime 05/19/2024 177.8 cm 35.9 kg/m2 662950.09 g [facility] [place] 05/19/2024 09:37:19 Social History None recorded. Functional [...] SNOMED-CT Code Diagnosis ICD10 Code Diagnosis Note [id number] Jeronimo Cali Jr, MD [facility] [address] [address] 05/07/2023 08:49:26 05/07/2023 10:03:28 Renal cell carcinoma 692969960 C64.9 Patient with history of renal cell carcinoma status post left open nephrectom y in February 2018. Surveillan ce labs today. Chest x-ray as well. Nocturia 221058797 R35.1 patient with history of nocturia. He admittedly has some sleep apnea and sleeping issues. We discussed melatonin to help with some sleep. He is not responded to alpha blockers in the past. [id number] MD [facility] [address] [address] 05/19/2024 09:34:11 05/19/2024 10:07:01 Renal cell carcinoma [id number] C64.9 Patient with history of renal cell carcinoma status post left open nephrectom y in February 2018. Surveillan ce labs today. Chest x-ray as well. Nocturia [id number] R35.1 patient with history of nocturia. He [...] 05/19/2024 2 [employer] (MEDICARE SUPPLEMENT) Angella Auguste [id number] Angella Auguste 05/19/2024 1 MEDIC[place] (MEDICARE) Angella Auguste [id number] Angella Auguste Notes Date Note Type Note Provider Name and Address Organization Details Recorded Time 05/07/2023 text/html Patient is a 72-year-old white male with a history of renal cell carcinoma status post a left open nephrectomy in February 2018 by myself. He was previously seen at [facility] and transferred care to [facility] today. His last visit was April 25, 2022. Previous surveillance studies have indicated a creatinine of 1.2 and normal liver functions. His PSA a year ago was normal at 0.4. Patient continues to have some nocturia at night. He is tried Flomax without help. Admittedly has some sleeping issues. Jeronimo Cali Jr, MD [address] [place] [address], [address], [place], [address], [facility] - [place] & [place] 05/07/2023 15:19:47 05/19/2024 text/html ROS as noted in the HPI Patient is a 73-year-old white male with [...] 3-4 times however. Jeronimo Cali Jr, MD [address] [place] [address] Drive, [address], [place], [address], [facility] [place] & [place] 05/19/2024 12:06:43
--- OUTSIDE RECORDS SUMMARY | 2025-02-17 19:46 | XMS_ITS | Encounter Summary ---
[facility] [address] [place] [address] Care Team Providers Care Inpatient Services Rn Name Role Phone Shaji Mehta MD Primary Care Provider [phone] Reason for Visit * Reason Onset Date Comments Med Refill 01/20/2025 Encounter Details Date Type Department Care Team (Late st Contact Info) Description 01/20/2025 Refill [facility] CARDIOLOGY [address] [facility] [address] [place] [address] Ever Lundberg III, MD [address] [facility] [address] [place] [address] Med Refill Social History Tobacco Use Types [...] Description 02/24/2025 9:15 AM EDT Office Visit [facility] CARDIOLOG[facility] [address] [place] [address] Ever Lundberg III, MD [address] [place] [place] [address] documented as of this encounter Visit Diagnoses Not on filedocumented in this encounter Care Teams Inpatient Services Rn Relationship Specialty Start Date End Date Shaji Mehta MD [address] [place] [address] PCP - General Family Medicine 08/06/16 documented as of this encounter
--- OUTSIDE RECORDS SUMMARY | 2025-02-17 19:46 | XMS_ITS | Encounter Summary ---
[facility] [address] [place] [address] Care Team Providers Care Resource Management Specialist Name Role Phone Shaji Mehta MD Primary Care Provider [phone] Encounter Details Date Type Department Care Team (Latest Contact Info) Description 02/03/2025 Travel Social History Tobacco Use Types Packs/Day [...] Description 02/24/2025 9:15 AM EDT Office Visit [facility] C[facility] P[address]RADELILAH [address] [address] Ever Lundberg III, MD [address] [place] [address] documented as of this encounter Visit Diagnoses Not on filedocumented in this encounter Care Teams Resource Management Specialist Relationship Specialty Start Date End Date Shaji Mehta MD [address] [place] [address] PCP - General Family Medicine 08/06/16 documented as of this encounter
--- OUTSIDE RECORDS SUMMARY | 2025-02-17 19:46 | XMS_ITS | Encounter Summary ---
[facility] [address] [place] [address] Care Team Providers Care Freight Claim Investigator Name Role Phone Shaji Mehta MD Primary Care Provider [phone] Encounter Details Date Type Department Care Team (Latest Contact Info) Description 02/16/2025 Travel Social History Tobacco Use Types Packs/Day [...] Description 02/24/2025 9:15 AM EDT Office Visit [facility] PAVITHRADELILAH [address] [address] Ever Lundberg III, MD [address] [place] [address] documented as of this encounter Visit Diagnoses Not on filedocumented in this encounter Care Teams Freight Claim Investigator Relationship Specialty Start Date End Date Shaji Mehta MD [address] [place] [address] PCP - General Family Medicine 08/06/16 documented as of this encounter
--- OUTSIDE RECORDS SUMMARY | 2025-02-17 19:46 | XMS_ITS | Clinical Summary ---
Author Organization [facility] yste Address [address] [place] [address] Care Team Providers Care Shoe Maker Name Role Phone Shaji Mehta MD Primary Care Provider [phone] Allergies Active Allergy Reactions Criticality Noted Date Comments Azithromycin Other (See Comments) Medium 09/04/2016 Lymph node swelling Medications aspirin 81 MG EC tablet Take 1 tablet by mouth Daily. Active coenzyme Q10 100 MG capsule Take 1 capsule by mouth Daily. Active atorvastatin (LIPITOR) 20 MG tablet Take 1 tablet by mouth Daily. Active OXcarbazepine (TRILEPTAL) 150 MG tablet Take 2 tablets by mouth 2 (Two) Times a Day. 5 Active metFORMIN (GLUCOPHAGE) 500 MG tablet Take 1 tablet by mouth 2 (Two) Times a Day With Meals. Active losartan (COZAAR) 50 MG tablet Take 1 tablet by mouth Every Morning. 90 tablet 1 5 Active amLODIPine (NORVASC) 10 MG tablet Take 1 tablet by mouth every night at bedtime. 90 tablet 1 5 Active baclofen (LIORESAL) 10 MG tablet Take 2 tablets by mouth Every Night. 5 02/17/20 25 Discontinu ed(*Therap y completed) hydroCHLOROthia zide 12.5 MG tablet Take 1 tablet by mouth Daily. 5 02/17/20 25 Discontinu ed(*Therap y completed) amLODIPine (NORVASC) 10 MG tablet Take 1 tablet by mouth every night at bedtime. 90 tablet 3 5 01/21/20 25 Discontinu ed(Reorder ) amLODIPine (NORVASC) 10 MG tablet Take 1 tablet by mouth every night at bedtime. 90 tablet 1 5 01/21/20 25 Discontinu ed(Reorder ) Active Problems Problem Noted Date Diagnosed Date Trigeminal neuralgia of left side of face 2024 Overview (01/05/2025): Patient received 6000 cGy in 1 fraction to left trigeminal nerve via stereotactic radiation therapy on 12/31/2024 Hypertension 03/15/2018 BPH (benign prostatic hyperplasia) 03/15/2018 Status post left nephrectomy 03/15/2018 Nausea 03/15/2018 SOB (shortness of breath) 03/15/2018 Leukocytosis 03/15/2018 Kidney mass 03/11/2018 Encounters Date Type Department Care Team Description 02/16/2025 10:00 AM EDT Office Visit [facility] SLEEP MEDICINE [address] [facility] [address] [place] [address] John Mosqueda MD Obstructive sleep apnea, adult (Primary Dx); Snoring; Obesity (BMI 30-39.9) 02/16/2025 Telephone [facility] CARDIOLOGY [address] [facility] [address] [place] [address] Ever Lundberg III, MD 02/16/2025 Travel 02/03/2025 10:00 AM EDT Clinical Support [facility] [address] [place] [address] Karime Alcantar APRN Trigeminal neuralgia of left side of face (Primary Dx) 02/03/2025 5:35 AM EDT Hospital Encounter [facility] [address] [facility] [address] [place] [address] 02/03/2025 Travel 01/21/2025 7:53 AM EDT - 01/21/2025 11:59 PM EDT Hospital Encounter [facility] NONINVASIVE LAB [address] [place] [phone] Dyspnea on exertion Discharge Disposition: Home or Self Care 01/21/2025 7:46 AM EDT - 01/21/2025 11:59 PM EDT Hospital Encounter [facility] [address] [place] [address] Resistant hypertension; Essential (primary) hypertension Discharge Disposition: Home or Self Care 01/21/2025 Travel 01/20/2025 Refill [facility] [address] [facility] [address] [place] [address] Ever Lundberg III, MD Med Refill 01/20/2025 Refill [facility] [address] [facility] [address] [place] [address] Ever Lundberg III, MD Med Refill 01/04/2025 Documentation [facility] NEUROSURGERY [address] [facility] [address] [place] [address] Zay Kim MD 12/31/2024 11:10 AM EDT - 12/31/2024 11:59 PM EDT Hospital Encounter [facility] [address] [facility] [address] [place] [address] Discharge Disposition: Home or Self Care 12/27/2024 8:06 AM EDT - 12/27/2024 11:59 PM EDT Hospital Encounter [facility] [address] [facility] [address] [place] [address] Discharge Disposition: Home or Self Care 12/27/2024 Travel 12/16/2024 8:18 AM EDT - 12/16/2024 11:59 PM EDT Hospital Encounter [facility] [address] [facility] [address] [place] [address] Discharge Disposition: Home or Self Care 12/16/2024 6:00 AM EDT - 12/16/2024 11:59 PM EDT Hospital Encounter [facility] [address] [facility] [address] [place] [address] Discharge Disposition: Home or Self Care 12/14/2024 Telephone [facility] [address] [place] [address] Jt Yin MD 12/13/2024 10:00 AM EDT Office Visit [facility]UR[facility] [address] [facility] [address] [place] [address] Zay Kim MD Trigeminal neuralgia (Primary Dx) 12/13/2024 7:06 AM EDT - 12/13/2024 11:59 PM EDT Hospital Encounter [facility] MRI [address] [facility] [place] [address] Zay Kim MD Trigeminal neuralgia Discharge Disposition: Home or Self Care 12/13/2024 Travel 12/08/2024 10:00 AM EDT Office Visit [facility] [address] [facility] [address] [place] [address] Jt Yin MD Trigeminal neuralgia (Primary Dx); Trigeminal neuralgia of left side of face 12/08/2024 Travel 12/03/2024 5:10 AM EDT Hospital Encounter [facility] [place] [address] [facility] [address] [address] [place] [address] 12/03/2024 Travel 12/01/2024 Telephone [facility] [address] [facility] [address] [place] [address] Ever Lundberg III, MD 11/29/2024 12:15 PM EDT Office Visit [facility] NEUROSURGERY [address] [facility] [address] [place] [address] Zay Kim MD Trigeminal neuralgia (Primary Dx) 11/29/2024 Travel from Last 3 Months Immunizations Immunization Administration Dates Next Due Fluad Quad 65+ 06/14/2021 Family History Medical History Relation Name Comments No Known Problems Father Colon cancer Mother Relation Name Status Comments Father Mother Social History Tobacco Use Types Packs/Day Years [...] Orientation Straight 12/06/2024 11 :17 AM EDT Last Filed Vital Signs Vital Sign Reading Time Taken Comments Blood Pressure 122/86 02/16/2025 9:44 AM EDT Pulse 84 02/16/2025 9:44 AM EDT Temperature 36.9 C (98.5 F) 02/16/2025 9:44 AM EDT Respiratory Rate 16 12/08/2024 9:53 AM EDT Oxygen Saturation 97% 02/16/2025 9:44 AM EDT Inhaled Oxygen Concentration - - Weight 108 kg (237 lb) 02/16/2025 9:44 AM EDT Height 177.8 cm (5' 10 ) 02/16/2025 9:44 AM EDT Body Mass Index 34.01 02/16/2025 9:44 AM EDT Plan of Treatment Upcoming Encounters Date Type Department Care Team (Late st Contact Info) Description 02/24/2025 9:15 AM EDT Office Visit [facility] CARDIOLOGY [address] [place] [address] Ever Lundberg III, MD [address] [place] [address] Health Maintenance Due Date Last Done Comments Pneumococcal Vaccine 50+ (1 of 2 - PCV) 10/26/1970 TDAP/TD VACCINES (1 - Tdap) 10/26/1970 ZOSTER VACCINE (1 of 2) 10/26/1970 COLOGUARD 10/26/1996 COLON CANCER SCREENING 5 YEAR SIGMOIDOSCOPY 10/26/1996 COLONOSCOPY 10/26/1996 COLORECTAL CANCER SCREENING 10/26/1996 CT COLONOGRAPHY 10/26/1996 FECAL OCCULT BLOOD TEST 10/26/1996 FIT Testing (1 year) 10/26/1996 ANNUAL WELLNESS VISIT 03/06/2018 HEPATITIS C SCREENING 03/06/2018 COVID-19 Vaccine (2 - Schuyler risk series) 11/29/2020 11/01/2020 INFLUENZA VACCINE 04/27/2025 06/14/2021 AAA SCREEN ONCE Completed 03/18/2018 Procedures Procedure Name Priority Date/Time Associated Diagnosis Comments ECHO COMPLETE W/ DOPPLER AND COLOR FLOW Routine 01/21/2025 9:26 AM EDT Dyspnea on exertion DUPLEX RENAL ARTERY BILATERAL COMPLETE CAR Routine 01/21/2025 8:24 AM EDT Resistant hypertension Essential (primary) hypertension SCANNED - LABS 12/15/2024 MRI BRAIN W WO CONTRAST Routine 12/13/2024 9:06 AM EDT Trigeminal neuralgia SCANNED - IMAGING 12/08/2024 MRI OUTSIDE FILMS Routine 11/25/2024 12: [address] ABDOMEN PELVIS WO CONTRAST Routine 03/18/2018 12:54 PM EDT from Last 3 Months or Most Recently Relevant to Health Maintenance Results * ECHO COMPLETE W/ DOPPLER AND [...] MD CV ECHO ORDERABLES Final Re sult * Duplex Renal Artery - Bilateral Complete [...] The study is technically good for diagnosis. Ever Lundberg III, MD CV VASCULAR ORDERABLES Camilla l Result * LABS SCANNED (12/15/2024) [facility] LAB BLOOD ORDERABLES Final Re sult * MRI Brain With & Without Contrast (12/13/2024 9:06 AM EDT) Anatomical Region Laterality Modality Head, Neck N/A Magnetic Resonan ce 12/13/2024 4:51 PM EDT Impressions 12/13/2024 5:12 PM EDT Impression: Mild typical chronic and age-related findings are present. Otherwise essentially normal contrast-enhanced MRI of the brain. No definite compressive mass or vascular structure noted in the region of the cisternal segment trigeminal nerves. Electronically Signed: Alvaro Pompa MD 12/13/2024 5:12 PM EDT Workstation ID: [id number] Narrative 12/13/2024 5:12 PM EDT MRI BRAIN W WO CONTRAST Date of Exam: 12/13/2024 7:06 AM EDT Indication: Trigeminal neuralgia. Comparison: None available. Technique: Routine multiplanar/multisequence sequence images of the brain were obtained before and after the uneventful administration of 20 mL Multihance. Findings: No acute infarct is present on diffusion weighted sequences. Midline structures appear normal and the craniocervical junction is satisfactory. Age-related changes are present with minimal volume loss and mild typical T2 hyperintense subcortical and pontine white matter changes, nonspecific but favored to reflect sequela of chronic microvascular ischemia. There is otherwise no evidence of intracranial hemorrhage, mass or mass effect. The ventricles are normal in size and configuration. The orbits are normal. The paranasal sinuses appear clear. There is no abnormal brain parenchymal enhancement. Thin cut heavily T2 weighted evaluation of the brainstem is partially limited due to some CSF flow signal artifact in the region of the cisternal trigeminal nerves, otherwise without definite compressing vascular structure or mass noted. Procedure Note Carson Pompa MD - 12/13/2024 MRI BRAIN W WO CONTRAST Date of Exam: 12/13/2024 7:06 AM EDT Indication: Trigeminal neuralgia. Comparison: None available. Technique: Routine multiplanar/multisequence sequence images of the brainwere obtained before and after the uneventful administration of 20 mLMultihance. Findings: No acute infarct is present on diffusion weighted sequences. Midlinestructures appear normal and the craniocervical junction is satisfactory.Age-related changes are present with minimal volume loss and mild typicalT2 hyperintense subcortical and pontine white matter changes, nonspecific but favored to reflect sequelaof chronic microvascular ischemia. There is otherwise no evidence ofintracranial hemorrhage, mass or mass effect. The ventricles are normal insize and configuration. The orbits are normal. The paranasal sinuses appear clear. There is no abnormal brainparenchymal enhancement. Thin cut heavily T2 weighted evaluation of thebrainstem is partially limited due to some CSF flow signal artifact in theregion of the cisternal trigeminal nerves, otherwise without definite compressing vascularstructure or mass noted. IMPRESSION: Impression: Mild typical chronic and age-related findings are present. Otherwiseessentially normal contrast-enhanced MRI of the brain. No definite compressive mass or vascular structure noted in the region ofthe cisternal segment trigeminal nerves. Electronically Signed: Alvaro Pompa MD 12/13/2024 5:12 PM EDT Workstation ID: [id number] Zay Kim MD IMG MRI ORDERABLES Final R esult * IMAGING SCANNED (12/08/2024) Anatomical Region Laterality Modality Radiographic Cici ging [facility] IMG DIAGNOSTIC IMAGING ORDERA BLES Final Result * MRI Outside Films (11/25/2024 12:00 AM EDT) Narrative SYSTEMGENERATED, DOCUMENTATION - 11/29/2024 11:56 AM EDT This procedure was auto-finalized with no dictation required. us Zay Kim MD IM MRI ORDERABLES Final R esult * CT Abdomen Pelvis Without Contrast (03/18/2018 12:54 PM EDT) Anatomical Region Laterality Modality Abdomen, Pelvis N/A Computed Tomogra phy 03/18/2018 1:15 PM EDT Impressions 03/18/2018 1:15 PM EDT 1. There is ill-defined low density in the left renal fossa consistent with postoperative change including hematoma and liquefied hematoma. There is also a trace amount of pelvic fluid. 2. There are some mildly distended small bowel loops. There is no transition zone or pattern to suggest mechanical bowel obstruction with air and fecal material noted throughout the colon. E: 03/18/2018 This report was finalized on 03/18/2018 1:[address] Anastacio Madera MD. Narrative 03/18/2018 1:15 PM EDT EXAMINATION: CT ABDOMEN PELVIS WO CONTRAST- 03/18/2018 INDICATION: elevated left hemidiaphragm, s/p left nephrectomy; N28.89-Other specified disorders of kidney and ureter TECHNIQUE: CT scan of the abdomen and pelvis was performed after oral contrast. The radiation dose reduction device was turned on for each scan per the ALARA (As Low as Reasonably Achievable) protocol. COMPARISON: NONE FINDINGS: There is elevation of the left diaphragm. The liver and spleen are normal. The left kidney is absent. There is irregular areas of low density in the left renal fossa consistent with postoperative change. The pancreas is normal. There is no right renal mass, stone or obstruction. There is no ascites, r aneurysm or retroperitoneal lymphadenopathy. There is no pelvic mass. There is a small amount of pelvic fluid. Procedure Note Lenard Madera MD - 03/18/2018 EXAMINATION: CT ABDOMEN PELVIS WO CONTRAST- 03/18/2018 INDICATION: elevated left hemidiaphragm, s/p left nephrectomy; N28.89-Other specified disorders of kidney and ureter TECHNIQUE: CT scan of the abdomen and pelvis was performed after oral contrast. The radiation dose reduction device was turned on for each scan per the ALARA (As Low as Reasonably Achievable) protocol. COMPARISON: NONE FINDINGS: There is elevation of the left diaphragm. The liver and spleen are normal. The left kidney is absent. There is irregular areas of low density in the left renal fossa consistent with postoperative change. The pancreas is normal. There is no right renal mass, stone or obstruction. There is no ascites, r aneurysm or retroperitoneal lymphadenopathy. There is no pelvic mass. There is a small amount of pelvic fluid. IMPRESSION: 1. There is ill-defined low density in the left renal fossa consistent with postoperative change including hematoma and liquefied hematoma. There is also a trace amount of pelvic fluid. 2. There are some mildly distended small bowel loops. There is no transition zone or pattern to suggest mechanical bowel obstruction with air and fecal material noted throughout the colon. E: 03/18/2018 This report was finalized on 03/18/2018 1:[address] Anastacio Madera MD. Kwabena Quintana MD IMG CT ORDERABLES Final Resu lt from Last 3 Months or Most Recently Relevant to Health Maintenance Insurance [address] [facility] [facility] [id number] MEDICARE A & B Member Subscriber Plan / Payer (Ef fective 2016-Present) Name:Brenden Auguste Member ID:[id number] Relation to Subscriber:Self Name:Brenden Auguste Subscriber ID:[id number] Payer ID:[id number] Group ID:Not on file Type:Not on file Address: [address] [employer] Advance Directives * CPR (Attempt to Resuscitate) (Latest Code Status on File) Date Activated Date Inactivated Comments 03/11/2018 11:28 AM 03/24/2018 3:27 PM Question Answer Comments Code Status (Patient has no pulse and is not breathing): CPR (Attempt to Resuscitate) Medical Interventions (Patie nt has pulse or is breathing): Full Care Teams Shoe Maker Relationship Specialty Start Date End Date Shaji Mehta MD [address] [place] [address] PCP - General Family Medicine 08/06/16
[2025-02-17 19:47] VITALS: BP 161/91; PULSE 95; RESP 16; TEMP 37.3; O2SAT 98; BMI 33.7
[2025-02-17] MEDS: DEXAMETHASONE 4MG/ML 1ML VIAL 10 MG IM (20:09)
[2025-02-17] MEDS: KETOROLAC 30MG/ML VIAL 30 MG IM (20:12)
[2025-02-17 20:50] VITALS: BP 106/80; PULSE 68; RESP 16; TEMP 37.1; O2SAT 99
== END 2025-02-17 20:51 | disposition home or self-care (01) ==
PROVIDERS: Emergency Provider Student in an Organized Health Care Education/Training Program; PCP Family Medicine
DX: G50.0 Trigeminal neuralgia (principal); R68.84 Jaw pain; Z87.891 Personal history of nicotine dependence
CPT/HCPCS: 96372; 99283; J1100; J1885

== ENCOUNTER 2025-07-25 10:05 | Outpatient (CLI) | payer MEDICARE, OTHER, SELFPAY ==
--- OUTSIDE RECORDS SUMMARY | 2024-12-03 04:10 | XMS_ITS | Encounter Summary ---
[facility] Address [address] [place] [address] Care Team Providers Care Perpetual Inventory Clerk Name Role Phone Shaji Mehta MD Primary Care Provider [phone] Reason for Visit * Auth/Cert (Routine) Specialty Diagnoses / Procedures Referred By Bandar t Referred To Contact Referral ID Status Reason Start Date Expiration Date Visits Re quested Visits Authorized [id number] 1 1 Encounter Details Date Type Department Care Team (Late st Contact Info) Description 12/03/2024 5:10 AM EDT Hospital Encounter [facility] [place] [address] [address] Social History Tobacco Use Types Packs/Day Years Used Date Smoking Tobacco: Former Cigarettes 1 35.1 1 977 - 09/04/2011 Passive Smoke Exposure: Past Smokeless Tobacco: Never Alcohol Use Standard Drinks/Week Comments No 0 (1 standard drink = 0.6 oz pur e alcohol) Abuse Screen Answer Date Recorded Feels Unsafe at Home or Work/School no 12/08/2024 Feels Threatened by Someone no 11/25 Does Anyone Try to Keep You From Having Contact with Others or Doing Things Outside Your Home? no 12/08/2024 Physical Signs of Abuse Present no 12/08/2024 PHQ-2 Answer Date Recorded Patient Health Questionnaire-2 Score 0 12/08/2024 Sex and Gender Information Value Date Recorded Sex Assigned at Male 12/06/2024 11:17 AM EDT Legal Sex Male 12:07 PM EDT Gender Identity Not on file Sexual Orientation Straight 12/06/2024 11 :17 AM EDT documented as of this encounter Plan of Treatment Upcoming Encounters Date Type Department Care Team (Late st Contact Info) Description 02/27/2026 9:45 AM EDT Office Visit [facility] [address] [place] [address] Ever Lundberg III, MD [address] [address] documented as of this encounter Visit Diagnoses Not on filedocumented in this encounter Care Teams Perpetual Inventory Clerk Relationship Specialty Start Date End Date Shaji Mehta MD [address] [place] [address] PCP - General Family Medicine 08/06/16 documented as of this encounter
--- OUTSIDE RECORDS SUMMARY | 2025-03-11 06:45 | XMS_ITS | Encounter Summary ---
[facility] [address] [place] [address] Care Team Providers Care Spanish Speaking Nanny Name Role Phone Shaji Mehta MD Primary Care Provider [phone] Reason for Referral * Hospital - Outpatient (Routine) - Closed Specialty Diagnoses / Procedures Referred By Bandar dover Referred To Contact Sleep Medicine Diagnoses Obstructive sleep apnea, adult Snoring Procedures Home Sleep Study John Mosqueda MD [address] [place] [address] Phone: tel: fax: [facility] [address] [address] Phone: tel: fax: Referral ID Status Reason Start Date Expiration Date Visits Re quested Visits Authorized Closed 02/16/2025 05/18/2026 1 1 Reason for Visit * Hospital - Outpatient (Routine) - Closed Specialty Diagnoses / Procedures Referred By Bandar dover Referred To Contact Sleep Medicine Diagnoses Obstructive sleep apnea, adult Snoring Procedures Home Sleep Study John Mosqueda MD [address] [place] [address] Phone: tel: fax: [facility] [address] [place] [address] Phone: tel: fax: Referral ID Status Reason Start Date Expiration Date Visits Re quested Visits Authorized [id number] Closed 02/16/2025 05/18/2026 1 1 Encounter Details Date Type Department Care Team (Late st Contact Info) Description 03/11/2025 7:45 AM EDT Hospital Encounter [facility] [address] [facility] [address] [place] [address] John Mosqueda MD [address] [place] [address] Obstructive sleep apnea, adult; Snoring Social History Tobacco Use Types Packs/Day Years [...] Sign Reading Time Taken Comments Blood Pressure - - Pulse - - Temperature - - Respiratory Rate - - Oxygen Saturation - - Inhaled Oxygen Concentration - - Weight 108 kg (239 lb) 03/11/2025 8:02 AM EDT Height 177.8 cm (5' 10 ) 03/11/2025 8:02 AM EDT Body Mass Index 34.29 03/11/2025 8:02 AM EDT documented in this encounter Plan of Treatment Upcoming Encounters Date Type Department Care Team (Late st Contact Info) Description 02/27/2026 9:45 AM EDT Office Visit [facility] [address] [place] [address] Ever Lundberg III, MD [address] [place] [address] documented as of this encounter Procedures Procedure Name Priority Date/Time Associated Diagnosis Comments HST Routine 03/12/2025 5:21 AM EDT Obstructive sleep apnea, adult Snoring documented in this encounter Results * HST (03/12/2025 5:21 AM EDT) Narrative SLEEP MEDICINE - 03/14/2025 5:22 PM EDT Table formatting from the original result was not included. Home Sleep Apnea Test Report Patient Name: Brenden Auguste Interpreting Physician: John Mosqueda MD Date of : 1950 Referring Provider: John Mosqueda,* Primary Care Provider: Shaji Mehta MD Date of Study: 03/11/2025 Clinical Information 74 y.o.male with signs and/or symptoms suggestive of obstructive sleep apnea. History reviewed. Please see referral clinic note for further details. A home sleep apnea test was ordered to further evaluate for the presence of sleep apnea. Methods used for Home Sleep Testing: Patient had a home sleep test with an Javelin Night One device that measured airflow at the nose and mouth. It measured thoracic respiratory effort using respiratory inductance plethysmography. It measured oxygen saturation and determined pulse rate. Body position was recorded. Snoring was judged by transducer vibration. It was scored using standard techniques. Home Sleep Testing Results The study was technically adequate. Study time was adequate. The AHI was 7.0. Oxygen saturations averaged 92%. Oxygen saturations were less than or equal to 88% for a total of 19 minutes throughout the night. The events were primarily obstructive in nature. Central events: 0% of total events. A significant supine positional effect was not noted. Snoring was present. Impression: - mild obstructive sleep apnea is present. - Oxygen desaturations are present. - Snoring is present. Recommendations: - The patient would likely benefit from a trial of PAP therapy such as an AutoSet CPAP with an 8 cm minimum and 18 cm maximum. - Recommend weight loss. - Recommend the patient avoid alcohol and sedatives close to bedtime. Follow-up: Sleep Center Electronically signed by: John Mosqueda MD 03/14/25 17:20 EDT us John Mosqueda MD SLEEP CENTER ORDERABLE S Final Result SLEEP MEDICINE documented in this encounter Visit Diagnoses Diagnosis Obstructive sleep apnea, adult Snoring Other dyspnea and respiratory abnormality documented in this encounter Care Teams Spanish Speaking Nanny Relationship Specialty Start Date End Date Shaji Mehta MD [address] [place] [address] PCP - General Family Medicine 08/06/16 documented as of this encounter
[2025-07-25 15:35] LABS: Influenza A, PCR Not Detected (NotDetected); Influenza B, PCR Not Detected (NotDetected)
[2025-07-26 05:36] LABS: Coronavirus 19, PCR Detected (NotDetected)
--- OUTSIDE RECORDS SUMMARY | 2025-07-26 11:39 | XMS_ITS | Clinical Summary ---
Author Organization [facility] yste Address [address] [place] [address] Care Team Providers Care Germ Drier Name Role Phone Shaji Mehta MD Primary Care Provider [phone] Allergies Active Allergy Reactions Criticality Noted Date [...] a Day With Meals. Active losartan (COZAAR) 100 MG tablet Take 1 tablet by mouth Daily. 90 tablet 1 5 Active amLODIPine (NORVASC) 10 MG tablet TAKE 1 TABLET EVERY NIGHT AT BEDTIME 90 tablet 1 5 Active amLODIPine (NORVASC) 10 MG tablet Take 1 tablet by mouth every night at bedtime. 90 tablet 1 5 07/14/20 25 Discontinued Active Problems Problem Noted Date Diagnosed Date ANANT (obstructive sleep apnea) 03/14/2025 Trigeminal neuralgia of left side of face 2024 Overview (01/05/2025): Patient received 6000 cGy in 1 fraction to left trigeminal nerve via stereotactic radiation therapy on 12/31/2024 Hypertension 03/15/2018 BPH (benign prostatic hyperplasia) 03/15/2018 Status post left nephrectomy 03/15/2018 Nausea 03/15/2018 SOB (shortness of breath) 03/15/2018 Leukocytosis 03/15/2018 Kidney mass 03/11/2018 Encounters Date Type Department Care Team Description 07/13/2025 Refill [facility] CARDIOLOGY [address] [place] [address] Ever Lundberg III, MD Med Refill 06/10/2025 Telephone [facility] NEUROSURGERY [address] [place] [address] RAMSEY-MEDICAL RECORDS NOTIFICATION_MEDICAL RECORDS NOTI 05/23/2025 Telephone [facility] CARDIOLOG[facility] [address] [place] [address] Ever Lundberg III, MD 05/11/2025 Refill [facility]ARDI[facility] [address] [place] [address] Ever Lundberg III, MD Med Refill from Last 3 Months Immunizations Immunization Administration Dates Next Due Fluad Quad 65+ 06/14/2021 Family History Medical History Relation Name Comments Diabetes Brother No Known Problems Father Colon cancer Mother Stephanie Auguste Diabetes Mother Stephanie Auguste Relation Name Status Comments Brother Father Mother Stephanie Auguste Social History Tobacco Use Types Packs/Day Years [...] Sign Reading Time Taken Comments Blood Pressure 134/84 02/24/2025 8:51 AM EDT Pulse 87 02/24/2025 8:51 AM EDT Temperature 36.9 C (98.5 F) 02/16/2025 9:44 AM EDT Respiratory Rate 16 12/08/2024 9:53 AM EDT Oxygen Saturation 98% 02/24/2025 8:51 AM EDT Inhaled Oxygen Concentration - - Weight 108 kg (239 lb) 03/11/2025 8:02 AM EDT Height 177.8 cm (5' 10 ) 03/11/2025 8:02 AM EDT Body Mass Index 34.29 03/11/2025 8:02 AM EDT Plan of Treatment Upcoming Encounters Date Type Department Care Team (Late st Contact Info) Description 02/27/2026 9:45 AM EDT Office Visit [facility] CARDIOLOGY [address] [place] [id number] Ever Lundberg III, MD [address] [place] [address] Health Maintenance Due Date Last Done Comments Pneumococcal Vaccine 50+ (1 of 2 - PCV) 10/26/1970 TDAP/TD VACCINES (1 - Tdap) 10/26/1970 COLOGUARD 10/26/1996 COLON CANCER SCREENING 5 YEAR SIGMOIDOSCOPY 10/26/1996 COLONOSCOPY 10/26/1996 COLORECTAL CANCER SCREENING 10/26/1996 CT COLONOGRAPHY 10/26/1996 FECAL OCCULT BLOOD TEST 10/26/1996 FIT Testing (1 year) 10/26/1996 ANNUAL WELLNESS VISIT 03/06/2018 HEPATITIS C SCREENING 03/06/2018 LUNG CANCER SCREENING 03/18/2019 03/18/2018 COVID-19 Vaccine (2 - Schuyler risk series) 11/29/2020 11/01/2020 INFLUENZA VACCINE 02/25/2025 06/14/2021 ZOSTER VACCINE (1 of 2) 05/03/2025 03/08/2025 AAA SCREEN ONCE Completed 03/18/2018 Procedures Procedure Name Priority Date/Time Associated Diagnosis Comments CT CHEST WO CONTRAST DIAGNOSTIC Routine 03/18/2018 12:[address] ABDOMEN PELVIS WO CONTRAST Routine 03/18/2018 12:54 PM EDT from Last 3 Months or Most Recently Relevant to Health Maintenance Results * CT Chest Without Contrast (03/18/2018 12:54 PM EDT) Anatomical Region Laterality Modality Chest N/A Computed Tomogra phy 03/18/2018 1:14 PM EDT Impressions 03/18/2018 1:15 PM EDT 1. There is elevation of the left diaphragm. This was also present on a previous examination of 03/15/2018. 2. There are bilateral pleural effusions, left greater than right, and there is bibasilar compressive airspace disease, also left greater than right. E: 03/18/2018 This report was finalized on 03/18/2018 1:[address] Anastacio Madera MD. Narrative 03/18/2018 1:15 PM EDT EXAMINATION: CT CHEST WO CONTRAST-03/18/2018: INDICATION: S/P left nephrectomy, elevated left hemidiaphragm; N28.89-Other specified disorders of kidney and ureter. TECHNIQUE: CT scan of the chest was performed without contrast. The radiation dose reduction device was turned on for each scan per the ALARA (As Low as Reasonably Achievable) protocol. COMPARISON: Chest x-ray of the same day. FINDINGS: There is no axillary lymphadenopathy. There is no mediastinal or hilar adenopathy. There is compressive atelectasis in the left lower lobe and there is a moderate sized left pleural effusion. The left diaphragm is elevated. There is also a much smaller effusion on the right with lesser compressive atelectasis. Procedure Note Lenard Madera MD - 03/18/2018 EXAMINATION: CT CHEST WO CONTRAST-03/18/2018: INDICATION: S/P left nephrectomy, elevated left hemidiaphragm; N28.89-Other specified disorders of kidney and ureter. TECHNIQUE: CT scan of the chest was performed without contrast. The radiation dose reduction device was turned on for each scan per the ALARA (As Low as Reasonably Achievable) protocol. COMPARISON: Chest x-ray of the same day. FINDINGS: There is no axillary lymphadenopathy. There is no mediastinal or hilar adenopathy. There is compressive atelectasis in the left lower lobe and there is a moderate sized left pleural effusion. The left diaphragm is elevated. There is also a much smaller effusion on the right with lesser compressive atelectasis. IMPRESSION: 1. There is elevation of the left diaphragm. This was also present on a previous examination of 03/15/2018. 2. There are bilateral pleural effusions, left greater than right, and there is bibasilar compressive airspace disease, also left greater than right. E: 03/18/2018 This report was finalized on 03/18/2018 1:[address] Anastacio Madera MD. us Kwabena Quintana MD IMG CT ORDERABLES Final Resu lt * CT Abdomen Pelvis Without Contrast (03/18/2018 [...] Most Recently Relevant to Health Maintenance Insurance MEDICARE A & B [facility] OPTIONS Advance Directives * CPR (Attempt to Resuscitate) (Latest Code Status on File) Date Activated Date Inactivated Comments 03/11/2018 11:28 AM 03/24/2018 3:27 PM Question Answer Comments Code Status (Patient has no pulse and is not breathing): CPR (Attempt to Resuscitate) Medical Interventions (Patie nt has pulse or is breathing): Full Care Teams Germ Drier Relationship Specialty Start Date End Date Shaji Mehta MD [address] [id number] PCP - General Family Medicine 08/06/16
--- OUTSIDE RECORDS SUMMARY | 2025-07-26 11:39 | XMS_ITS | Encounter Summary ---
[facility] Address [address] [place] [address] Care Team Providers Care Ranch Manager Name Role Phone Shaji Mehta MD Primary Care Provider [phone] Reason for Visit * Reason Comments Med Refill Encounter Details Date Type Department Care Team (Late st Contact Info) Description 07/13/2025 Refill [facility] CARDIOLOGY [address] [facility] [address] [place] [address] Ever Lundberg III, MD [address] [facility] [address] [place] [address] Med Refill Social History Tobacco Use Types [...] Visit [facility] CARDIOLOGY [address] [place] [phone] Ever Lundberg III, MD [address] [facility] [address] [place] [address] documented as of this encounter Visit Diagnoses Not on filedocumented in this encounter Care Teams Ranch Manager Relationship Specialty Start Date End Date Shaji Mehta MD [address] [place] [address] PCP - General Family Medicine 08/06/16 documented as of this encounter
--- OUTSIDE RECORDS SUMMARY | 2025-07-26 11:39 | XMS_ITS | Encounter Summary ---
[facility] Address [address] [place] [address] Care Team Providers Care Machine Design Checker Name Role Phone Shaji Mehta MD Primary Care Provider Reason for Visit * Reason Onset Date Comments DR KIM-MEDICAL RECORDS NOTIFICATION_MEDICAL R ECORDS NOTI 06/10/2025 Encounter Details Date Type Department Care Team (Late st Contact Info) Description 06/10/2025 Telephone [facility] NEUROSURGERY [address] [address] Zay Kim MD [address] [place] [address] DR KIM-MEDICAL RECORDS NOTIFICATION_MEDICAL RECORDS NOTI Social History Tobacco Use Types Packs/Day Years [...] encounter Miscellaneous Notes * Telephone Encounter - Rebekah Edmonds - 06/13/2025 9:23 AM EST There is 1 document after 12/14/24 - Dr Kim's Cyberknife note. This report was faxed. * Telephone Encounter - Fifi Anderson RegSched Rep - 06/10/2025 11:00 AM EST The [facility] received a fax that requires your attention. The document has been indexed to the patient???s chart for your review. Reason for sending: RECEIVED REQUEST FOR MED REC FOR 12/14/24 Documents Description: REQUEST FOR MED REC_[facility]_06/03/25 Name of Sender: [facility] Date Indexed: 06/10/25 Notes (if needed): documented in this encounter Plan of Treatment Upcoming Encounters Date Type Department Care Team (Late st Contact Info) Description 02/27/2026 9:45 AM EDT Office Visit [facility] CARDIOLOGY [address] [facility] [address] [place] [phone] Ever Lundberg III, MD [address] [facility] [address] [place] [address] documented as of this encounter Visit Diagnoses Not on filedocumented in this encounter Care Teams Machine Design Checker Relationship Specialty Start Date End Date Shaji Mehta MD [address] [place] [address] PCP - General Family Medicine 08/06/16 documented as of this encounter
== END 2025-07-25 23:59 | disposition home or self-care (01) ==
LOC: LAB.DROPOF 07-26 11:37
PROVIDERS: PCP Family Medicine; Visit Provider Nurse Practitioner
DX: J06.9 Acute upper respiratory infection, unspecified (principal)
CPT/HCPCS: 87631